=== PATIENT | female | born 1960 | race Caucasian/White ===

== ENCOUNTER → 2018-05-07 11:14 | Outpatient (CLI) | payer BC, SELFPAY ==
[2018-05-07 12:53] LABS: Thyroid Stim Hormone (TSH) 1.22 uIU/mL (0.358-3.74)
[2018-05-13 13:12] LABS: HPV Reflexed? NOT INDICATED
== END ==
PROVIDERS: Visit Provider Obstetrics & Gynecology
DX: Z12.4 Encounter for screening for malignant neoplasm of cervix (principal); E03.9 Hypothyroidism, unspecified
CPT/HCPCS: 36415; 84443; 87624; 88175; G0145

== ENCOUNTER → 2018-08-20 09:00 | Outpatient (CLI) | payer BC, SELFPAY ==
--- NOTE | 2018-08-20 09:04 | BI_ITS ---
MAMMOGRAPHY - BILATERAL SCREENING REASON FOR EXAM: Female, 58 years old. Routine annual screening examination. PERTINENT HISTORY: Non-contributory. TECHNIQUE: Digital bilateral breast eber (3D mammographic acquisition) in the CC and MLO projections. 2-D mediolateral oblique (MLO) and craniocaudad (CC) views of both breasts were obtained. CAD: Full Field Digital Mammography with Computer Added Detection was performed. COMPARISON: Comparison is made with prior study dated September 05, 2016 and February 22, 2015. FINDINGS: Breast Composition: There are scattered areas of fibroglandular density. There are no dominant masses or suspicious calcifications. No other significant abnormalities are identified. There has been no significant change since the prior study. BI/SCREENING MAMM (CAD), BILAT IMPRESSION: Stable bilateral screening mammogram. Yearly follow-up mammogram recommended. (A) ASSESSMENT CATEGORY: BIRADS Category 1: Negative. A letter regarding these results will be sent to the patient by the facility within 30 days. Approximately 10% of breast cancers are not detected by mammography. A normal mammogram should not delay biopsy of a clinically suspicious abnormality. [id number] Electronically Signed: Jh Ghosh MD at 10:27 EST , Service support ,
== END ==
PROVIDERS: Referring Provider Obstetrics & Gynecology; Visit Provider Obstetrics & Gynecology
DX: Z12.31 Encounter for screening mammogram for malignant neoplasm of breast (principal)
CPT/HCPCS: 77063; 77067

== ENCOUNTER → 2019-09-09 11:16 | Outpatient (CLI) | payer BC, SELFPAY ==
[2019-09-09 13:45] LABS: Mean Corp Hgb Conc 32.6 g/dL (32-36); Mean Corpuscular Hgb 27.4 pg (27.0-32.0); Mean Corpuscular Volume 84.1 fL (81-99); Mean Platelet Vol. 10.4 fl (6.2-12.0); Platelet Count 315 K/mm3 (150-450); RBC Distribution Width CV 12.6 % (11.6-14.6); RBC Distribution Width SD 38.5 fl (35.1-43.9); Red Blood Count 5.11 M/mm3 (4.2-5.4); White Blood Count 7.2 K/mm3 (4.4-11.0)
[2019-09-09 14:02] LABS: ALB/GLOB Ratio 1.1 RATIO (0.9-2.4); AST(SGOT) 15 U/L (15-37); Alanine Aminotransfer ALT/SGPT 31 U/L (13-56); Alkaline Phosphatase 91 U/L (45-117); Anion Gap 5 (5-15); BUN 10 mg/dL (7-18); BUN/Creat Ratio 14.4 RATIO (10-20); Calcium,Total 8.6 mg/dL (8.5-10.1); Chloride 109 mmol/L (98-107); Cholesterol 181 mg/dL (200); EST Glomerular Filtration Rate 92 mL/min (>60); Est Glom Filt Rate - Afr Amer 112 mL/min (>60); Globulin 3.5 g/dL (2.2-4.2); Glucose 89 mg/dL (74-106); Hemoglobin A1c 5.3 % (4.2-6.3); High Density Lipoprotein 56 mg/dL; Potassium 3.6 mmol/L (3.5-5.1); Protein, Total 7.5 g/dL (6.4-8.2); Sodium Level 141 mmol/L (136-145); Thyroid Stim Hormone (TSH) 1.26 uIU/mL (0.358-3.74); Triglycerides 89 mg/dL; Very Low Density Lipoprotein 18 mg/dL (5-40)
== END ==
PROVIDERS: Visit Provider Obstetrics & Gynecology
DX: E07.9 Disorder of thyroid, unspecified (principal); R53.81 Other malaise; E66.3 Overweight
CPT/HCPCS: 36415; 80053; 80061; 83036; 84443; 85027

== ENCOUNTER → 2019-09-20 08:33 | Outpatient (CLI) | payer BC, SELFPAY ==
--- NOTE | 2019-09-20 08:36 | BI_ITS ---
MAMMOGRAPHY - BILATERAL SCREENING REASON FOR EXAM: Female, 59 years old. Routine annual screening examination. PERTINENT HISTORY: Non-contributory. TECHNIQUE: Digital bilateral breast brandi (3D mammographic acquisition) in the CC and MLO projections. 2-D mediolateral oblique (MLO) and craniocaudad (CC) views of both breasts were obtained. CAD: Full Field Digital Mammography with Computer Added Detection was performed. COMPARISON: Comparison is made with prior examination dated August 20, 2018 and September 05, 2016. FINDINGS: Breast Composition: There are scattered areas of fibroglandular density. There are no dominant masses or suspicious calcifications. Stable benign-appearing bilateral axillary lymph nodes. No other significant abnormalities are identified. There has been no significant change since the prior study. BI/SCREEN MAMM (CAD) W/BRANDI BILAT IMPRESSION: Stable bilateral screening mammogram. Yearly follow-up mammogram recommended. (A) ASSESSMENT CATEGORY: BIRADS Category 2: Benign. A letter regarding these results will be sent to the patient by the facility within 30 days. Approximately 10% of breast cancers are not detected by mammography. A normal mammogram should not delay biopsy of a clinically suspicious abnormality. [id number] Electronically Signed: Jh Ghosh, at 10:33 EDT , Service support ,
== END ==
PROVIDERS: Referring Provider Obstetrics & Gynecology; Visit Provider Obstetrics & Gynecology
DX: Z12.31 Encounter for screening mammogram for malignant neoplasm of breast (principal)
CPT/HCPCS: 77063; 77067

== ENCOUNTER → 2020-01-04 | Outpatient (CLI) | payer BC, SELFPAY ==
[2020-01-03 17:20] VITALS: BMI 36.3
== END | disposition home or self-care (01) ==
PROVIDERS: Referring Provider Physician Assistant; Visit Provider Physician Assistant
DX: T14.8XXA Other injury of unspecified body region, initial encounter (principal); X58.XXXA Exposure to other specified factors, initial encounter; Y93.9 Activity, unspecified; Y92.9 Unspecified place or not applicable; Y99.9 Unspecified external cause status
CPT/HCPCS: 87070; 87077; 87186; 87205

== ENCOUNTER → 2020-09-29 10:16 | Outpatient (CLI) | payer BC, SELFPAY ==
[2020-01-03 17:20] VITALS: BMI 36.3
[2020-09-29 14:07] LABS: Hemoglobin 14.9 g/dL (12.0-15.0); Mean Corp Hgb Conc 32.4 g/dL (32-36); Mean Corpuscular Hgb 27.7 pg (27.0-32.0); Mean Corpuscular Volume 85.7 fL (81-99); Mean Platelet Vol. 10.3 fl (6.2-12.0); Platelet Count 372 K/mm3 (150-450); RBC Distribution Width CV 12.4 % (11.6-14.6); RBC Distribution Width SD 38.8 fl (35.1-43.9); Red Blood Count 5.37 M/mm3 (4.2-5.4); White Blood Count 6.2 K/mm3 (4.4-11.0)
[2020-09-29 14:24] LABS: Hemoglobin A1c 5.1 % (3.8-5.6)
[2020-09-29 14:27] LABS: Cholesterol 186 mg/dL (200); High Density Lipoprotein 59 mg/dL; Thyroid Stim Hormone (TSH) 0.86 uIU/mL (0.358-3.74); Triglycerides 74 mg/dL; Very Low Density Lipoprotein 15 mg/dL (5-40)
[2020-10-03 14:15] LABS: HPV Reflexed? NOT INDICATED
== END ==
PROVIDERS: Visit Provider Obstetrics & Gynecology
DX: Z12.4 Encounter for screening for malignant neoplasm of cervix (principal); E03.9 Hypothyroidism, unspecified; E66.3 Overweight; N95.1 Menopausal and female climacteric states
CPT/HCPCS: 36415; 80061; 83036; 84443; 85027; 88175; G0145

== ENCOUNTER → 2020-10-06 08:49 | Outpatient (CLI) | payer BC, SELFPAY ==
[2020-01-03 17:20] VITALS: BMI 36.3
--- NOTE | 2020-10-06 09:09 | BI_ITS ---
MAMMOGRAPHY - BILATERAL SCREENING REASON FOR EXAM: Female, 60 years old. Routine annual screening examination. PERTINENT HISTORY: Non-contributory. TECHNIQUE: Digital bilateral breast brandi (3D mammographic acquisition) in the CC and MLO projections. 2-D mediolateral oblique (MLO) and craniocaudad (CC) views of both breasts were obtained. CAD: Full Field Digital Mammography with Computer Added Detection was performed. COMPARISON: Comparison is made with prior study of 09/20/2019 and 08/20/2018. FINDINGS: Breast Composition: There are scattered areas of fibroglandular density. There are no dominant masses or suspicious calcifications. Stable benign-appearing lateral axillary lymph nodes. No other significant abnormalities are identified. There has been no significant change since the prior study. BI/SCRN MAMM (CAD)W/BRANDI BILAT IMPRESSION: Stable bilateral screening mammogram. Yearly follow-up mammogram recommended. (A) ASSESSMENT CATEGORY: BIRADS Category 2: Benign. A letter regarding these results will be sent to the patient by the facility within 30 days. Approximately 10% of breast cancers are not detected by mammography. A normal mammogram should not delay biopsy of a clinically suspicious abnormality. [id number] Electronically Signed: Jh Ghosh MD at 9:48 EDT , Service support ,
== END ==
PROVIDERS: Referring Provider Obstetrics & Gynecology; Visit Provider Obstetrics & Gynecology
DX: Z12.31 Encounter for screening mammogram for malignant neoplasm of breast (principal)
CPT/HCPCS: 77063; 77067

== ENCOUNTER 2021-10-11 11:22 | Outpatient (CLI) | payer BC, SELFPAY ==
[2021-10-11 12:35] LABS: Hematocrit 45.4 % (37-47); Hemoglobin 15.1 g/dL (12.0-15.0); Mean Corp Hgb Conc 33.3 g/dL (32-36); Mean Corpuscular Volume 84.1 fL (81-99); Mean Platelet Vol. 9.4 fl (6.2-12.0); Platelet Count 342 K/mm3 (150-450); RBC Distribution Width CV 12.4 % (11.6-14.6); RBC Distribution Width SD 37.7 fl (35.1-43.9); White Blood Count 7.3 K/mm3 (4.4-11.0)
[2021-10-11 13:03] LABS: Hemoglobin A1c 5.3 % (3.8-5.6)
[2021-10-11 13:07] LABS: ALB/GLOB Ratio 1.1 RATIO (0.9-2.4); AST(SGOT) 23 U/L (15-37); Alanine Aminotransfer ALT/SGPT 40 U/L (13-56); Albumin, Serum 4.1 g/dL (3.2-5.0); Alkaline Phosphatase 102 U/L (45-117); Anion Gap 5 (5-15); BUN 8 mg/dL (7-18); BUN/Creat Ratio 11.9 RATIO (10-20); Calcium,Total 8.7 mg/dL (8.5-10.1); Chloride 106 mmol/L (98-107); Cholesterol 216 mg/dL (200); Creatinine, Serum 0.67 mg/dL (0.55-1.02); EST Glomerular Filtration Rate 95 mL/min (>60); Est Glom Filt Rate - Afr Amer 115 mL/min (>60); Globulin 3.6 g/dL (2.2-4.2); Glucose 95 mg/dL (74-106); High Density Lipoprotein 62 mg/dL; Potassium 3.5 mmol/L (3.5-5.1); Protein, Total 7.7 g/dL (6.4-8.2); Sodium Level 138 mmol/L (136-145); Thyroid Stim Hormone (TSH) 1.34 uIU/mL (0.358-3.74); Triglycerides 112 mg/dL; Very Low Density Lipoprotein 22 mg/dL (5-40)
== END 2021-10-11 23:59 | disposition home or self-care (01) ==
PROVIDERS: Visit Provider Obstetrics & Gynecology
DX: Z13.220 Encounter for screening for lipoid disorders (principal); E03.9 Hypothyroidism, unspecified
CPT/HCPCS: 36415; 80053; 80061; 83036; 84443; 85027

== ENCOUNTER 2021-10-30 11:01 | Outpatient (CLI) | payer BC, SELFPAY ==
--- NOTE | 2021-10-30 11:03 | BI_ITS ---
MAMMOGRAPHY - BILATERAL SCREENING 3-D TOMOSYNTHESIS REASON FOR EXAM: Female, 61 years old. SCREENING PERTINENT HISTORY: No significant family history. TECHNIQUE: 2-D mammograms and 3-D Tomosynthesis of the breast (s) were performed. CAD was performed. COMPARISON: 10/06/2020 FINDINGS: The breast composition is composed of scattered fibroglandular density. Scattered benign calcifications are seen. No dense spiculated masses or suspicious microcalcifications are identified. No architectural distortion is identified. There is no skin thickening or retraction. There has been no significant change since the prior study. BI/SCRN MAMM (CAD)W/BRANDI BILAT IMPRESSION: No mammographic signs of malignancy. Routine yearly mammograms recommended. ASSESSMENT CATEGORY: BIRADS Category 1: Negative. A letter regarding these results will be sent to the patient by the facility within 30 days. FOLLOW UP RECOMMENDATION: Yearly follow up mammogram recommended. (A) Approximately 10% of breast cancers are not detected by mammography. A normal mammogram should not delay biopsy of a clinically suspicious abnormality. Electronically Signed: Steven Lyons MD at 12:01 EDT ,
== END 2021-10-30 23:59 | disposition home or self-care (01) ==
LOC: OPBI 11:01
PROVIDERS: Referring Provider Obstetrics & Gynecology; Visit Provider Obstetrics & Gynecology
DX: Z12.31 Encounter for screening mammogram for malignant neoplasm of breast (principal)
CPT/HCPCS: 77063; 77067

== ENCOUNTER → 2024-07-21 | Outpatient (CLI) | payer BC, SELFPAY ==
--- NOTE | 2024-07-21 16:57 | CT_ITS ---
EXAM: CT RIGHT LOWER EXTREMITY WITHOUT INTRAVENOUS CONTRAST CLINICAL INDICATION: PRE OP WASC/OSTEO TECHNIQUE: Helically acquired images were obtained of the right lower extremity without intravenous contrast. 2-D reformats were performed by the technologist. CTDIvol = ( 18.74 ) mGy, DLP = ( 1322.73 ) mGycm This CT exam was performed using one or more of the following dose reduction techniques: automated exposure control, adjustment of the mA and/or kV according to patient size, and/or use of iterative reconstruction technique. COMPARISON: No relevant prior studies available. FINDINGS: BONES/JOINTS: Calcaneal enthesopathy. Bone along the medial malleolus. Knee shows tricompartmental osteoarthrosis, moderate to severe. Mild degenerative joint space narrowing at the right hip joint. Mild enthesopathy involving the right greater trochanter. No acute or healing fracture or malalignment. SOFT TISSUES: Unremarkable. No soft tissue swelling or gas. No radiopaque foreign body. No soft tissue masses or fluid collections. OTHER FINDINGS: Distal colonic diverticulosis but no acute diverticulitis. No free fluid in the pelvis. CT/Extremity Lower without Contra IMPRESSION: 1. [id number] tricompartmental osteoarthrosis of the knee. 2. Study was performed for preoperative planning purposes. Electronically Signed: Graham Anderson MD at 19:05 EST Reading Location ID and State: [address] [place] [address] Tel , Service support ,
== END | disposition home or self-care (01) ==
LOC: CT 16:55
PROVIDERS: Referring Provider Orthopaedic Surgery; Visit Provider Orthopaedic Surgery
DX: M17.31 Unilateral post-traumatic osteoarthritis, right knee (principal); M25.561 Pain in right knee
CPT/HCPCS: 73700

== ENCOUNTER → 2024-08-24 | Outpatient (CLI) | payer BC, SELFPAY ==
--- NOTE | 2024-08-24 08:38 | EKG12_ITS ---
Test Reason : PRE OP Blood Pressure : */* mmHG Vent. Rate : 71 BPM Atrial Rate : 71 BPM P-R Int : 168 ms QRS Dur : 76 ms QT Int : 404 ms P-R-T Axes : 67 91 86 degrees QTcB Int : 439 ms Normal sinus rhythm Normal ECG Confirmed by Rashid Walters ([id number]), department editor TY WILLIAMSON ([id number]) on 08/25/2024 6:54:44 AM Referred By: Mele Allen Confirmed By: Rashid Walters
--- NOTE | 2024-08-24 09:05 | RAD_ITS ---
EXAM: XR Chest, 2 Views CLINICAL INDICATION: TECHNIQUE: Frontal and lateral views of the chest. COMPARISON: No relevant prior studies available. FINDINGS: LUNGS AND PLEURAL SPACES: Unremarkable. No consolidation. No pneumothorax. HEART: Unremarkable. No cardiomegaly. MEDIASTINUM: Unremarkable. Normal mediastinal contour. BONES/JOINTS: Unremarkable. No acute fracture. RAD/Chest PA and Lateral IMPRESSION: No acute cardiopulmonary process. Reading [facility]
[2024-08-24 10:44] LABS: Absolute Lymphocyte Count 2.38 X10^3/uL (0.83-4.51); Absolute Neutrophil Count 4.6 X10^3/uL (2.0-7.7); Basophil# 0.05 X10^3/uL; Basophil% 0.6 % (0-1); Eosinophil# 0.25 X10^3/uL; Eosinophils% 3.2 % (0-5); Hematocrit 43.6 % (37-47); Lymphocyte # 2.38 X10^3/ul (0.83-4.51); Lymphocyte % 30.4 % (19-41); Mean Corp Hgb Conc 32.1 g/dL (32-36); Mean Corpuscular Hgb 27.3 pg (27.0-32.0); Mean Platelet Vol. 10.2 fl (6.2-12.0); Monocyte# 0.53 X10^3/uL; Monocyte% 6.8 % (0-10); NRBC Flagged by Analyzer 0 % (0-5); Neutrophil % 58.6 % (47-70); Platelet Count 361 K/mm3 (150-450); RBC Distribution Width CV 12.6 % (11.6-14.6); RBC Distribution Width SD 38.8 fl (35.1-43.9); Red Blood Count 5.13 M/mm3 (4.2-5.4); White Blood Count 7.8 K/mm3 (4.4-11.0)
[2024-08-24 11:18] LABS: Albumin, Serum 3.8 g/dL (3.2-5.0); Anion Gap 8 (5-15); BUN 15 mg/dL (7-18); BUN/Creat Ratio 24.4 RATIO (10-20); Calcium,Total 8.5 mg/dL (8.5-10.1); Chloride 105 mmol/L (98-107); Creatinine, Serum 0.61 mg/dL (0.55-1.02); EST Glomerular Filtration Rate 105 mL/min (>60); Est Glom Filt Rate - Afr Amer 127 mL/min (>60); Glucose 90 mg/dL (74-106); Potassium 3.9 mmol/L (3.5-5.1); Sodium Level 140 mmol/L (136-145)
== END | disposition home or self-care (01) ==
PROVIDERS: Referring Provider Orthopaedic Surgery; Visit Provider Orthopaedic Surgery
DX: Z01.811 Encounter for preprocedural respiratory examination (principal); Z01.818 Encounter for other preprocedural examination
CPT/HCPCS: 36415; 71046; 80048; 82040; 85025; 93005

== ENCOUNTER → 2024-09-17 | Outpatient (CLI) | payer BC, SELFPAY ==
--- NOTE | 2024-09-17 07:30 | KNEE_PTH ---
PATIENT: ISIS BAJWA LOC: [facility]#:[id number] AGE/SX: 64/F ROOM: RE09/17/[address]: Dr. Mele Allen MD : 1960 BED: DIS: 09/17/2024 SPEC #: [id number] RECD: 09/17/24 15:02 STATUS: RAKAN REMaged #: [id number] KAYE: 09/17/24 07:[address]: Mele Allen DEPT: SURGICAL PATHOLOGY RECD BY: Citlaly Stratton ENTERED: 09/20/24 08:27 SP TYPE: TOTAL KNEE OTHR DR: No Primary Care Phys Tissues: Knee, NOS Procedures: Decalcification bone/plaque Surgery Specimen Level IV HEADER OPERATION: Right total knee arthroplasty PRE-OP DIAGNOSIS: Right knee posttraumatic arthritis grade 4 TISSUE SUBMITTED: Right knee bone and tissue MICROSCOPIC DIAGNOSIS Right knee, bone and soft tissue, total knee arthroplasty: * Articular bone with reactive/degenerative changes and fatty marrow spaces. * Fibroadipose tissue with hyperplastic synovium demonstrating mild chronic inflammation. MICROSCOPIC DESCRIPTION Slides are reviewed. GROSS DESCRIPTION Received is one container designated bone and soft tissue right knee. The specimen consists of multiple fragments of ybarra-yellow bone measuring in aggregate 9 x 7.5 x 2.5 cm. Also in the specimen container are multiple fragments of yellow-white soft tissue measuring in aggregate 7 x 5 x 2cm. A number of bony fragments contain articular surfaces consistent with tibial plateau and femoral condyle and display prominent osteophyte formation, eburnation, and erosion. Blade Balancer sections are submitted in two cassettes as follows: 1 - bone after decalcification, 2 - soft tissue. RS2 09/20/2024 CPT: 40087, [id number]
== END | disposition home or self-care (01) ==
LOC: LABSPEC 15:36
PROVIDERS: Referring Provider Orthopaedic Surgery; Visit Provider Orthopaedic Surgery
DX: M12.561 Traumatic arthropathy, right knee (principal)
CPT/HCPCS: 88305; 88311

== ENCOUNTER → 2024-10-01 | Outpatient (CLI) | payer BC, SELFPAY ==
--- NOTE | 2024-10-01 10:59 | VDLE_ITS ---
Reason For Study Reason For Study: Swelling RIGHT LEFT GSV is normal. CFV is compressible, spontaneous, phasic, competent, CFV is compressible, spontaneous, phasic, competent and demonstrates normal augmentation. and demonstrates normal augmentation. FV is compressible, spontaneous, phasic, competent and demonstrates normal augmentation. POP V is compressible, spontaneous, phasic, competent and demonstrates normal augmentation. T/P Trunk is compressible. PTV is compressible. RT PerV is compressible. Procedure This is a venous duplex using B-mode, color flow and spectral Doppler. Exam performed in department. A preliminary report was called and/or faxed to DIVYA Moser. VL/Venous Duplex US, Unilateral Interpretation Summary Deep veins of the right lower extremity are patent and compressible segmentally . There is no evidence of right lower extremity deep vein thrombosis. Valvular competence appears intact within the p roximal deep venous system on the right . The right great saphenous vein appears patent and compressible segmentally. The left common femoral vein is patent and compressible . Ordering Physician: Briana White Performed By: Yudy Hyatt
== END | disposition home or self-care (01) ==
LOC: CVS 10:56
PROVIDERS: Referring Provider Physician Assistant; Visit Provider Physician Assistant
DX: R22.41 Localized swelling, mass and lump, right lower limb (principal)
CPT/HCPCS: 93971

== ENCOUNTER 2024-10-25 15:13 | Emergency (ER) | payer BC, SELFPAY ==
[2024-10-25 15:16] VITALS: BP 153/79; PULSE 78; RESP 18; TEMP 36.6; O2SAT 98
[2024-10-25 15:17] VITALS: BMI 29.5
--- NOTE | 2024-10-25 15:20 | EX.ED.DYSGE1 ---
HPI <DIVYA Vasquez - Last Filed: 10/25/24 15:40> History of Present Illness Chief Complaint: General Illness Narrative Narrative: 64-year-old female had an outpatient ultrasound of her right leg that was positive for DVT and was sent to the ED. She had a right knee replacement about 5 weeks ago (September 17) with Dr. Mele Allen. Over the last 2 weeks or so she developed increased pain and swelling in the knee and upper calf area. She has been doing physical therapy and recovering overall. She is still taking oxycodone as needed. No fever or chills. No chest pain or shortness of breath. No history of DVT/PE. PFSH <DIVYA Vasquez - Last Filed: 10/25/24 15:40> PFSH Medical History URI (upper respiratory infection) Thoracic myofascial strain Knee pain Home Medications ?Medication ?Instructions ?Recorded ?Last Taken ?Type levothyroxine 75 mcg tablet 75 mcg PO DAILY 01/03/20 Unknown History (Synthroid) naproxen sodium 220 mg capsule 220 mg PO BID PRN 01/03/20 Unknown History (Aleve) cyclobenzaprine 10 mg tablet 10 mg PO TID PRN muscle spasm #20 04/15/23 Unknown Rx tabs naproxen 500 mg tablet 500 mg PO BID #20 tabs 04/15/23 Unknown Rx apixaban 5 mg (74 tabs) tablets in See Rx Instructions PO .COMPLEX 10/25/24 Unknown Rx a dose pack (Eliquis DVT-PE Treat #74 tabs 30D Start) Allergy/AdvReac Type Severity Reaction Status Date / Time No Known Allergies Allergy Verified 10/25/24 15:17 Family History Mother Diabetes CVD (cardiovascular disease) Surgical History Hx of section History of thyroid surgery History of knee surgery Social History Smoking Status: Never smoker alcohol intake: never ROS <DIVYA Vasquez - Last Filed: 10/25/24 15:40> ROS ED ROS Narrative Constitutional: Negative for fever, chills, malaise. CVS: Negative for chest pain. Respiratory: Negative for shortness of breath. Neuro: Negative for motor/sensory dysfunction. EXAM <DIVYA Vsaquez - Last Filed: 10/25/24 15:40> Physical Exam Narrative Exam Narrative: CONST: Patient sitting in no acute distress. EYES: Normal inspection. NECK: Normal inspection. RESP: No respiratory distress, CTAB. CVS: Regular rate and rhythm, no murmur, no gallop. SKIN: Color normal, no rash, warm, dry, intact. EXTREMITIES: Midline right knee incision is well-healed. Mild swelling of right knee as compared to left but no warmth or redness. Range of motion intact. Tender over the left mid and upper calf without palpable cords. No lower extremity edema. 2+ DP pulses. NEURO: Alert and answering questions appropriately. PSYCH: Normal affect. Const Vital Signs: 10/25/24 15:16 10/25/24 15:41 Temperature 97.8 F 97.8 F Temperature Source Oral Pulse Rate 78 78 Respiratory Rate 18 18 Blood Pressure 153/79 H 153/79 H Blood Pressure Mean 103 103 Pulse Ox 98 98 Oxygen Delivery Method Room Air <Dr. Sim Ledbetter MD - Last Filed: 10/25/24 15:50> Physical Exam Const Vital Signs: 10/25/24 15:16 10/25/24 15:41 Temperature 97.8 F 97.8 F Temperature Source Oral Pulse Rate 78 78 Respiratory Rate 18 18 Blood Pressure 153/79 H 153/79 H Blood Pressure Mean 103 103 Pulse Ox 98 98 Oxygen Delivery Method Room Air MDM <DIVYA Vasquez - Last Filed: 10/25/24 15:40> MDM MDM Narrative Medical decision making narrative: 64-year-old female is 5 weeks postop from a right knee replacement and developed some knee and upper calf pain and her outpatient duplex ultrasound from today shows a right soleus DVT. No history of DVT/PE. She appears well nontoxic and vital signs are stable. She has no chest pain or shortness of breath so I am not concerned for PE. She had recent blood work 2 months ago preop which shows normal CBC and BMP so this does not need repeated prior to initiating anticoagulation. I thoroughly discussed the risks and benefits of Eliquis. First dose was given here and prescription sent to her pharmacy. I recommended close follow-up with her PCP and she was discharged in stable condition. <Dr. Sim Ledbetter MD - Last Filed: 10/25/24 15:50> [facility] MDM Narrative Medical decision making narrative: 64-year-old female is 5 weeks postop from a right knee replacement and developed some knee and upper calf pain and her outpatient duplex ultrasound from today shows a right soleus DVT. No history of DVT/PE. She appears well nontoxic and vital signs are stable. She has no chest pain or shortness of breath so I am not concerned for PE. She had recent blood work 2 months ago preop which shows normal CBC and BMP so this does not need repeated prior to initiating anticoagulation. I thoroughly discussed the risks and benefits of Eliquis. First dose was given here and prescription sent to her pharmacy. I recommended close follow-up with her PCP and she was discharged in stable condition. I have personally performed a face to face assessment of the patient and have reviewed the LIZZIE Note. I performed a substantive portion of the visit including all aspects of the following. My ugarte findings include: History is [62-year-old female about 5+ weeks ago had right knee replaced surgery by Dr. Mele Allen. Developed calf pain recently. Had a noninvasive study done today in the vascular lab which showed a right calf DVT. Denies any chest pain or shortness of breath. No other complaint well-appearing 62-year-old female. Vital signs stable afebrile. Pulse ox 90% on room air Narvox. H EENT exam s.] Exam is [pupils round react light. Moist mucous members. Lungs clear equal symmetric bilateral. Heart regular rhythm rate about 75 no murmur. Chest wall ribs nontender. Abdomen soft nontender. Moving all 4 extremities. Neurovascular intact. Right knee well-healed anterior surgical incision. Dry and clean. No redness or warmth. She is able to flex extend her right knee and hip. Normal dorsi plantarflexion of her right foot. Normal DP pulse. Normal sensation. She has tenderness on the right proximal calf medially.. No cord. Trace edema. Consistent with a DVT. No redness.] Medical Decision Making [noninvasive study right calf DVT. Patient be started on Eliquis. Outpatient follow-up with her primary care physician.] Other additions or changes: [None] Discharge Plan Triage Chief Complaint: General Illness ED Midlevel Provider: Kelly More ED Provider: Sim Ledbetter Dx/Rx/DC Orders Clinical Impression: Acute deep vein thrombosis (DVT) of right lower extremity, History of total right knee replacement Instructions: DVT Dc Prescriptions: New Eliquis DVT-PE Treat 30D Start 5 mg (74 tabs) tablets,dose pack See Rx Instructions .ROUTE .COMPLEX Qty: 74 0RF Rx Instructions: orally per package directions No Action naproxen sodium [Aleve] 220 mg capsule 220 mg PO BID PRN levothyroxine [Synthroid] 75 mcg tablet 75 mcg PO DAILY naproxen 500 mg tablet 500 mg PO BID Qty: 20 0RF cyclobenzaprine 10 mg tablet 10 mg PO TID PRN (Reason: muscle spasm) Qty: 20 0RF Rx Instructions: do not drive/ operate heavy equipment after taking this medication Primary Care Provider: Gaby Uriarte Referrals: Gaby Uriarte MD [Primary Care Provider] - Activity Restrictions/Additional Instructions: There is a blood clot in your right soleus vein. I prescribed a blood thinner called Eliquis that you take twice daily. If you have any bleeding issues like blood in your vomit, urine, or stool please be seen immediately. If you fall or have a head injury be seen immediately in the ER. Follow-up with your primary care doctor in 1 to 2 weeks. Print Language: Vietnamese Disposition Disposition: Home, Self Care
[2024-10-25] MEDS: APIXABAN 5 MG TABLET 10 MG PO (15:37)
[2024-10-25 15:41] VITALS: BP 153/79; PULSE 78; RESP 18; TEMP 36.6; O2SAT 98
== END 2024-10-25 15:55 | disposition home or self-care (01) ==
LOC: ED 15:49
PROVIDERS: Emergency Provider Emergency Medicine; PCP Internal Medicine; Visit Provider Emergency Medicine
DX: I82.461 Acute embolism and thrombosis of right calf muscular vein (principal); Z96.651 Presence of right artificial knee joint
CPT/HCPCS: 99282

== ENCOUNTER → 2024-10-25 | Outpatient (CLI) | payer BC, SELFPAY ==
--- NOTE | 2024-10-25 14:14 | VDLE_ITS ---
Reason For Study Reason For Study: Pain RLE RIGHT LEFT GSV is normal. CFV is compressible, spontaneous, phasic, competent, CFV is compressible, spontaneous, phasic, competent and demonstrates normal augmentation. and demonstrates normal augmentation. FV is compressible, spontaneous, phasic, competent and demonstrates normal augmentation. POP V is compressible, spontaneous, phasic, competent and demonstrates normal augmentation. T/P Trunk is compressible. PTV is compressible. RT PerV is compressible. Rt SoleusV is DILATED and NON COMPRESSIBLE consistent with acute DVT. Procedure This is a venous duplex using B-mode, color flow and spectral Doppler. Exam performed in department. A preliminary report was called and/or faxed to [facility]. Patient sent to ED per PCP. VL/Venous Duplex US, Unilateral Interpretation Summary Acute deep vein thrombosis noted in the right soleus vein Ordering Physician: Briana White Referring Physician: Gaby Uriarte Performed By: Donna Taylor, BAYLEE, RVT
== END | disposition home or self-care (01) ==
LOC: CVS 13:51
PROVIDERS: Referring Provider Physician Assistant; Visit Provider Physician Assistant
DX: M25.561 Pain in right knee (principal)
CPT/HCPCS: 93971

== ENCOUNTER → 2025-01-06 | Outpatient (CLI) | payer BC, SELFPAY ==
--- NOTE | 2025-01-06 10:30 | RAD_ITS ---
EXAM: XR Lumbosacral Spine, 2 or 3 Views CLINICAL INDICATION: SPONDYLOSIS WITHOUT MYELOPATHY OR RADICULOPATHY, LUMBAR REGION TECHNIQUE: Frontal and lateral views of the lumbar spine and sacrum. COMPARISON: No relevant prior studies available. FINDINGS: VERTEBRAE: Mild multilevel endplate degenerative changes of L1-2 S1. Moderate disc disease of L5-S1. Moderate facet arthropathy of L4-S1. No acute fracture. Normal alignment. SACRUM/COCCYX: Unremarkable as visualized. No acute fracture. DISC SPACES: No acute findings. No significant narrowing. SOFT TISSUES: Unremarkable. RAD/Lumbar Spine 2 or 3 Views IMPRESSION: Degenerative changes as above. Reading Location: [facility]
== END | disposition home or self-care (01) ==
LOC: RAD 10:25
PROVIDERS: PCP Internal Medicine; Referring Provider Anesthesiology Pain Medicine; Visit Provider Anesthesiology Pain Medicine
DX: M47.816 Spondylosis without myelopathy or radiculopathy, lumbar region (principal)
CPT/HCPCS: 72100

== ENCOUNTER 2025-03-07 17:30 | Outpatient (RCR) | payer BC, SELFPAY ==
--- NOTE | 2024-10-05 11:36 | HP.PTEVAL ---
Patient's Visit Information Visit Information Visit Information: ISIS BAJWA is a 64 year old F referred to Physical Therapy by Dr. Mele Allen MD with a diagnosis of R TKA 09/17/24. Date of Evaluation: 10/05/24 Physical Therapist: Vishal De, PT, ATC Visit Plan Frequency: 2-3x /Week Duration: 4-6 Weeks Plan: R knee stretching and strengthening, PROM/mobs, core stab ex's, gait training, stair negotiation, nustep, and HEP Subjective Subjective: DOS: 09/17/24. Pt reports she had a R TKA performed at that time. Pt reports she had R knee pain for several years prior to having this procedure performed. pt notes she is in a lot of pain today. Pt notes she is having sleep difficulty at this time secondary to pain. Pt reports she has been controlling her pain with the use of meds and ice, but she is still really sore. Pt [place] herself, [place] Pt notes her basement is finished and she likes to go down there, but she doesn't have to at this time. Pt reports her R knee will go numb on her at times. 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 Pt reports her job requires her to walk for long distances and negotiate stairs. Pt reports 6/10 pain while sitting here in the clinic, 10/10 pain at worst. Pain R TKA: Pain Intensity (Out of 10): 6 Pain Intensity Range: 10 Objective Objective: Neuro: B LE sensation is WNL to light touch. Observation: Incision is still healing at this time. No signs of infection. Mild tenderness in her R gastroc region. TU seconds ROM: L knee 0-130 ; R knee 0-20-70 degrees MMT: L knee flex= 35, ext= 30 #F; R knee flex= 4, ext= 6 #F Balance/Special Test Scores Lower Extremity Functional Score: 13 Goals Goal 1:: Decrease R knee pain x 50% to aid with sleep Goal Time Frame: 6-8 Weeks Goal 2:: Increase R knee ROM x 40 degrees to aid with restoring a more normalized gait pattern Goal Time Frame: 6-8 Weeks Goal 3:: Increase R knee strength x 20 #F to aid with stair negotiation Goal Time Frame: 6-8 Weeks Goal 4:: Perform the TUG in under 15 seconds Goal Time Frame: 6-8 Weeks Goal 5:: I with HEP Goal Time Frame: 6-8 Weeks Rehabilitation Potential Physical Therapy Diagnosis: Pt has R knee pain, weakness, and limited ROM secondary to R TKA Rehabilitation Potential: Good Anticipated Interventions Patient/Client Instruction: Educate patient on: Condition and Plan of Care For the Purpose of:: To improve self management Therapeutic Exercise to Include: Strength training, Endurance training, Balance training, Flexibilty training, Gait and locomotor training, Passive ROM, Active ROM and Dynamic Lumbar Stabilization For the Purpose of:: To decrease pain, To increase ROM and To improve muscle performance and motor function Cryotherapy (ice pack, ice massage): Yes For the Purpose of:: To decrease pain Text: Thank you for the opportunity to evaluate your patient. For Medicare and Medicare HMO plans, please review the plan of care and approve it. It will need to be FAXED BACK to us at [phone] for Medicare purposes. For Medicare only, by signing this I certify the plan of care. Please let me know if there are questions or concerns regarding this plan of care. Physician Signature: Date:
--- NOTE | 2024-11-11 13:35 | HP.PTREVAL_ITS ---
Re-Evaluation Intro: Dr. Mele Allen MD, It has been my pleasure to treat [facility] over the last 13 visits for R TKA 09/17/24. Please see the progress note below for an update on the physical therapy plan of care! Subjective Subjective: Pt reports she just finished her steroid dose pack a couple days ago. The pain is back now. Objective Objective/Function: R knee ROM: 0-15-85 degrees R knee MMT: flex= 9, ext= 13 #F TU R knee pain is 5/10 Pt lacks signifcant functional strength and ROM at this time. Plan Plan Plan: 11/11/24- Continue to focus on ROM and strengthening at this time R knee stretching and strengthening, PROM/mobs, core stab ex's, gait training, stair negotiation, nustep, and HEP Balance/Gait/Functional tests Balance/Special Test Scores Lower Extremity Functional Score: 13 Goals Goals Goal 1:: Decrease R knee pain x 50% to aid with sleep Goal Time Frame: 6-8 Weeks Goal Progress: Progressing Goal 2:: Increase R knee ROM x 40 degrees to aid with restoring a more normalized gait pattern Goal Time Frame: 6-8 Weeks Goal Progress: Progressing Goal 3:: Increase R knee strength x 20 #F to aid with stair negotiation Goal Time Frame: 6-8 Weeks Goal Progress: Progressing Goal 4:: Perform the TUG in under 15 seconds Goal Time Frame: 6-8 Weeks Goal Progress: Progressing Goal 5:: I with HEP Goal Time Frame: 6-8 Weeks Anticipated Interventions Anticipated Interventions Patient/Client Instruction: Educate patient on: Condition and Plan of Care For the Purpose of:: To improve self management Therapeutic Exercise to Include: Strength training, Endurance training, Balance training, Flexibilty training, Gait and locomotor training, Passive ROM, Active ROM and Dynamic Lumbar Stabilization For the Purpose of:: To decrease pain, To increase ROM and To improve muscle performance and motor function Cryotherapy (ice pack, ice massage): Yes For the Purpose of:: To decrease pain Re-Evaluation Ending Re-evaluation ending: Please do not hesitate to contact me at [phone] by phone or Fax: if you have questions or concerns regarding this new plan of care! Sincerely, Vishal De, PT, ATC
--- NOTE | 2024-12-20 15:05 | HP.PTREVAL ---
Re-Evaluation Intro: Dr. Mele Allen MD, It has been my pleasure to treat [facility] over the last 29 visits for R TKA 09/17/24. Please see the progress note below for an update on the physical therapy plan of care! Subjective Subjective: I dont usually have pain, but I am sore today Objective Objective/Function: R knee ROM: 0-10-97 degrees R knee MMT: flex= 17, ext= 7 #F R knee pain ranges from 2-7/10 Pt still lacks functional strength and ROM at this time Plan Plan Plan: 12/20/24- Continue to focus on ROM and strength of R knee at this time. Balance/Gait/Functional tests Balance/Special Test Scores Lower Extremity Functional Score: 30 Goals Goals Goal 1:: Decrease R knee pain x 50% to aid with sleep Goal Time Frame: 6-8 Weeks Goal Progress: Progressing Goal 2:: Increase R knee ROM x 40 degrees to aid with restoring a more normalized gait pattern Goal Time Frame: 6-8 Weeks Goal Progress: Progressing Goal 3:: Increase R knee strength x 20 #F to aid with stair negotiation Goal Time Frame: 6-8 Weeks Goal Progress: Progressing Goal 4:: Perform the TUG in under 15 seconds Goal Time Frame: 6-8 Weeks Goal Progress: Progressing Goal 5:: I with HEP Goal Time Frame: 6-8 Weeks Anticipated Interventions Anticipated Interventions Patient/Client Instruction: Educate patient on: Condition and Plan of Care For the Purpose of:: To improve self management Therapeutic Exercise to Include: Strength training, Endurance training, Balance training, Flexibilty training, Gait and locomotor training, Passive ROM, Active ROM and Dynamic Lumbar Stabilization For the Purpose of:: To decrease pain, To increase ROM and To improve muscle performance and motor function Cryotherapy (ice pack, ice massage): Yes For the Purpose of:: To decrease pain Re-Evaluation Ending Re-evaluation ending: Please do not hesitate to contact me at [phone] by phone or if you have questions or concerns regarding this new plan of care! Sincerely, Vishal De, PT, ATC
--- NOTE | 2025-04-19 11:35 | HP.PT.NRP ---
Patient Information Patient Information: ISIS BAJWA was seen in my office for initial evaluation on 10/05/24. The following Plan of Care was established for this patient: POC Established Initial Frequency: 2-3x /Week Initial Duration: 4-6 Weeks Anticipated Interventions Patient/Client Instruction: Educate patient on: Condition and Plan of Care For the Purpose of:: To improve self management Therapeutic Exercise to Include: Strength training, Endurance training, Balance training, Flexibilty training, Gait and locomotor training, Passive ROM, Active ROM and Dynamic Lumbar Stabilization For the Purpose of:: To decrease pain, To increase ROM and To improve muscle performance and motor function Cryotherapy (ice pack, ice massage): Yes For the Purpose of:: To decrease pain Last Seen Last Seen: This patient was last seen in our office . Pertinent comments regarding their Physical therapy will appear below: Pt has not returned for greater than 30 days and is discontinued at this time. At this point I will be discontinuing this patient from physical therapy. I would be happy to see this patient again in the future if found appropriate by the physician. Thank you! Vishal De, PT, ATC Balance/Gait/Functional tests Balance/Special Test Scores Lower Extremity Functional Score: 28
== END 2025-03-07 19:00 | disposition home or self-care (01) ==
LOC: PT 17:30
PROVIDERS: Referring Provider Orthopaedic Surgery; Visit Provider Orthopaedic Surgery
DX: M17.31 Unilateral post-traumatic osteoarthritis, right knee (principal); M25.561 Pain in right knee
CPT/HCPCS: 97016; 97110; 97113; 97140; 97161; 97530

== ENCOUNTER → 2025-03-29 | Outpatient (CLI) | payer BC, SELFPAY ==
--- NOTE | 2025-03-29 17:13 | BI_ITS ---
EXAM: SCRN MAMM (CAD)W/BRANDI BILAT DATE: 03/29/2025 CLINICAL HISTORY: F, Age 64 y/o , SCREENING No family history TECHNIQUE: Procedure Code: [id number] Modality: MG Procedure: SCRN MAMM (CAD)W/BRANDI BILAT COMPARISON: Prior exam(s) dated February 06, 2024.. FINDINGS: TISSUE DENSITY: There are scattered areas of fibroglandular density. Bilateral Breast Mammographic Findings: No significant masses, calcifications or other abnormalities are identified. Stable small benign-appearing bilateral axillary lymph nodes. No suspicious masses, areas of developing architectural distortion, or suspicious calcifications. There has been no significant interval change. BI/SCRN MAMM (CAD)W/BRANDI BILAT IMPRESSION: Stable bilateral screening mammogram. OVERALL FINAL ASSESSMENT BI-RADS 2: BENIGN RECOMMENDATION: Routine annual follow-up in 1 Year A letter with findings and recommendations will be mailed to the patient. Reading Location: [facility]
--- OUTSIDE RECORDS SUMMARY | 2025-03-29 23:15 | XMS RPT_ITS | CCD ---
Author Organization [facility] Care Team Providers Care Die Cast Engineer Name Role Phone Rebeca Silva Primary Care Provider [phone] Sarah ALCARAZ, Rebeca Primary Care Provider [phone] Annetta DURBIN - ANDREA, Kelli Unavailable Dr. Mele Aleln MD Attending Provider Dr. Mele Allen MD Referring Provider REBECA SILVA Primary Care Provider Tian Betancourt Attending Provider Dr. Rashid Walters MD Attending Provider Care Physician, No Primary Primary Care Provider Unavailable Briana Lloyd Attending Provider Briana Lloyd Referring Provider Abebe ALCARAZ, Dr. Burton Elena Attending Provider Dr. Burton Lomas MD Referring Provider Sarah ALCARAZ, Dr. Rebeca Caballero Primary Care Provider Dr. Sim Ledbetter MD Emergency Provider Sarah ALCARAZ, Dr. Rebeca Caballero Primary Care Provider Dr. Misael Murrieta MD Attending Provider Dr. Mele Allen MD Attending Provider Dr. Mele Allen MD Referring Provider REBECA SILVA Primary Care Provider Briana White Referring Provider Unavailable Dr. Sim Ledbetter MD Attending Provider Care Physician, No Primary Primary Care Provider Unavailable Adin ALCARAZ, Dr. Figueroa Attending Provider [phone] Adin ALCARAZ, Dr. Figueroa Referring Provider [phone] Alejandro ALCARAZ, Dr. Shabazz Attending Provider [phone] Alejandro ALCARAZ, Dr. Shabazz Referring Provider [phone] KELLI LITTLEJOHN Attending Unavailable SARAH, REBECA Primary Care Unavailable KELLI LITTLEJOHN Attending Unavailable SARAH, REBECA Primary Care Unavailable KELLI LITTLEJOHN Attending Unavailable SARAH, REBECA Primary Care Unavailable ANNETTAKELLI MCKENNA Attending Unavailable SARAH, REBECA Primary Care Unavailable Sarah, Rebeca L Primary Care Unavailable Sim Ledbetter Attending Unavailable Care Physician, No Primary Primary Care Unava ilable Mele Allen Attending Unavailable Mele Allen Referring Unavailable Care Physician, No Primary Primary Care Unava ilable Mele Allen Attending Unavailable Mele Allen Referring Unavailable Pranay VSC, Tanya Attending Unavailabl e Pranay VSC, Tanya Referring Unavailabl e Pranay VSC, Tanya Attending Unavailabl e Sarah, Rebeca L Primary Care Unavailable Mele Allen Referring Unavailable Mele Allen Attending Unavailable YEPEZ, JUAN Primary Care Unavailable Misael Murrieta Attending Unavailable Sarah, Rebeca L Primary Care Unavailable YEPEZJUAN Leo Referring Unavailable Mele Allen Referring Unavailable Rashid Walters Attending Unavailable Tian Betancourt Attending Unavailable Mele Allen Referring Unavailable Mele Allen Attending Unavailable MARLENI, JUAN Primary Care Unavailable Magdiel Oakley Attending Unavailable Sarah, Rebeca L Primary Care Unavailable Magdiel Oakley Referring Unavailable Care Physician, No Primary Primary Care Unava ilable Christopher, Briana Referring Unavailable Christopher Briana Attending Unavailable Care Physician, No Primary Primary Care Unava ilable Christopher, Briana Referring Unavailable Christopher, Briana Attending Unavailable Allergies Allergy Classification Reported Allergen(s) Allergy Type Date of Onset Reaction(s) Facility (20 sources) Cefadroxil Drug Allergy 09-12-2022 [facility] Medications Current Medications Medication Drug Class(es) Dates Sig (Normalized) Sig (Original) acetaminophen 325 mg / oxyCODONE hydrochloride 5 mg oral tablet (4 sources) Opioid Agonist Start: 08-26-2022 End: 08-29-2022 take 1 tablet by mouth every six hours as needed for pain oxyCODONE-acetami nophen (Percocet) 5-325 MG tablet Indications: Mass of soft tissue of abdomen Take 1 tablet by mouth every 6 hours as needed for severe pain (7-10) for up to 3 days. 12 tablet 0 08/26/2022 08/29/2022 Active Start: 12-27-2019 End: 12-30-2019 take 1 tablet by mouth every six hours as needed for pain oxyCODONE-acetaminophen (PERCOCET) 5-325 MG per tablet Indications: Rib contusion, left, initial encounter Take 1 tablet by mouth every 6 hours as needed for Pain for up to [address], take other narcotics or muscle relaxer's, make important decisions or drink alcohol with this medication. Only take at night and off from work when not going to work 12 tablet 0 12/27/2019 12/30/2019 Active Start: 12-27-2019 End: 12-27-2019 oxyCODONE-acetaminophen (PER COCET) 5-325 MG per tablet 1 tablet apixaban 5 mg oral tablet (10 sources) Factor Xa Inhibitor Start: 10-25-2024 End: 02-15-2025 take 1 tablet by mouth twice daily Eliquis 5 MG tablet Indications: Acute deep vein thrombosis (DVT) of right lower extremity, unspecified vein (HCC) TAKE 1 TABLET BY MOUTH TWICE A DAY 60 tablet 1 02/15/2025 Active Start: 10-25-2024 take 1 tablet by mouth once Ap ixaban (Eliquis Dvt-Pe Treat 30d Start) 5 mg (74 tabs) tablets,dose pack Active 0 PO .COMPLEX 74 0 October 25, 2024 12:00am orally per package directions cefadroxil 500 mg oral capsule (2 sources) Cephalosporin Antibacterial Start: 08-26-2022 End: 08-30-2022 take 1 capsule by mouth twice daily cefadroxil (Duricef) 500 MG capsule Take 1 capsule (500 mg) by mouth 2 times daily for 4 days. 8 capsule 0 08/26/2022 08/30/2022 Active cholecalciferol 0.025 mg oral tablet (20 sources) Vitamin D Start: 09-02-2022 cholecalciferol (Vitamin D3) 25 MCG (1000 UT) tablet 09/02/2022 Active cyclobenzaprine hydrochloride 10 mg oral tablet (6 sources) Muscle Relaxant Start: 04-15-2023 take 1 tablet by mouth three times daily as needed for muscle spasms Cyclobenzaprine 10 mg tablet Active 10 mg PO THREE TIMES A DAY as needed for muscle spasm April 15, 2023 12:00am do not drive/ operate heavy equipment after taking this medication gabapentin 600 mg oral tablet (4 sources) Anti-epileptic Agent Start: 01-09-2025 take 1 tablet by mouth three times daily gabapentin (Neurontin) 600 MG tablet Take 600 mg by mouth 3 times daily. 01/09/2025 Active Start: 08-26-2022 End: 08-26-2022 gabapentin (Neurontin) capsu le 100 mg levothyroxine sodium 0.088 mg oral tablet (20 sources) l-Thyroxine Start: 07-18-2022 End: 01-10-2025 take 1 tablet by mouth once daily levothyroxine (Synthroid, Levoxyl) 88 MCG tablet Indications: Postsurgical hypothyroidism TAKE 1 TABLET BY MOUTH EVERY DAY 90 tablet 3 01/10/2025 Active Start: 01-03-2020 take 1 tablet by fidelina th once daily Levothyroxine (Synthroid) 75 mcg tablet Active 75 ug PO DAILY January 03, 2020 12:00am take 1 tablet by fidelina th once daily levothyroxine (SYNTHROID) 88 MCG tablet Take 88 mcg by mouth Daily 0 Active lidocaine 0.04 mg/mg medicated patch (3 sources) Antiarrhythmic, Amide Local Anesthetic Start: 12-27-2019 End: 01-06-2020 lidocaine 4 % external patch Place 1 patch onto the skin daily for 10 days Apply to affected area for 12 hours and then remove for 12 hours 10 patch 0 12/27/2019 01/06/2020 Active Start: 12-27-2019 End: 12-27-2019 lidocaine PF 1 % injection 5 mL lisinopril 10 mg oral tablet (11 sources) Angiotensin Converting Enzyme Inhibitor Start: 10-25-2024 take 1 tablet by mouth once daily lisinopril 10 MG tablet Indications: Essential hypertension Take 1 tablet (10 mg) by mouth daily. 90 tablet 10/25/2024 Active Start: 08-31-2024 End: 10-22-2024 take 1 tablet by mouth once daily lisinopril 10 MG tablet Indications: Essential hypertension TAKE 1 TABLET (10 MG) BY MOUTH DAILY. 90 tablet 10/04/2024 10/22/2024 Discontinued (Reorder) naproxen 500 mg oral tablet (16 sources) Nonsteroidal Anti-inflammatory Drug Start: 04-15-2023 take 1 tablet by mouth twice daily Naproxen 500 mg tablet Active 500 mg PO TWICE A DAY 20 April 15, 2023 12:00am Start: 01-03-2020 take 1 capsule by mo [facility] twice daily as needed Naproxen Sodium (Aleve) 220 mg capsule Active 220 mg PO TWICE A DAY as needed January 03, 2020 12:00am Start: 12-27-2019 End: 01-03-2020 take 1 tablet by mouth twice daily naproxen (NAPROSYN) 500 MG tablet Take 1 tablet by mouth 2 times daily for 7 days 14 tablet 0 12/27/2019 01/03/2020 Active Start: 03-11-2018 take 1 tablet by [facility] twice daily as needed for pain [facility] NAPROXEN SODIUM 220 MG tablet Indications: Knee pain, unspecified chronicity, unspecified laterality TAKE 1 TABLET BY MOUTH 2 TIMES DAILY NEEDED FOR PAIN TAKE WITH FOOD 100 tablet 5 03/11/2018 Active Tirzepatide-Weight Managemen t (Zepbound) 5 MG/0.5ML solution auto-injector (4 sources) Start: 12-21-2023 Tirzepatide-We ight Management (Zepbound) 5 MG/0.5ML solution auto-injector Indications: Class 2 obesity with body mass index (BMI) of 35.0 to 35.9 in adult, unspecified obesity type, unspecified whether serious comorbidity present Inject 5 mg under the skin every 7 days. Do not start before December 21, 2023. 6 mL 12/21/2023 Active Wegovy 2.4 MG/0.75ML solutio n auto-injector (9 sources) Start: 08-25-2024 Wegovy 2.4 MG/ 0.75ML solution auto-injector Inject 2.4 mg under the skin every 7 days. 08/25/2024 Active Completed/Discontinued Medications Medication Drug Class(es) Dates Sig (Normalized) Sig (Original) acetaminophen 500 mg oral tablet (2 sources) Start: 08-26-2022 End: 08-26-2022 acetaminophen (Tylenol) tablet 1,000 mg ALPRAZolam 0.25 mg disintegrating oral tablet (2 sources) Benzodiazepine Start: 08-26-2022 End: 08-26-2022 ALPRAZolam (Xanax) disintegrating tablet 0.25 mg bacitracin zinc 0.5 unt/mg topical ointment (2 sources) Start: 12-27-2019 End: 12-27-2019 bacitracin ointment Start: 12-27-2019 bacitracin 500 UNIT/GM ointment Apply topically 2 times daily. 1 Tube 0 12/27/2019 Active calcium chloride 0.0014 meq/ ml / potassium chloride 0.004 meq/ml / sodium chloride 0.103 meq/ml / sodium lactate 0.028 meq/ml injectable solution (4 sources) Start: 08-26-2022 End: 08-26-2022 lactated ringers infusion Collagen-Vitamin C-Biotin (Collagen 1500/C) 500-50-0.8 MG capsule (14 sources) Start: 09-02-2022 End: 09-01-2024 Collagen-Vitamin C-Biotin (Collagen 1500/C) 500-50-0.8 MG capsule 09/02/2022 09/01/2024 Discontinued Start: 09-02-2022 Collagen-Vitam in C-Biotin (Collagen 1500/C) 500-50-0.8 MG capsule 09/02/2022 Active Start: 09-02-2022 Collagen-Vitam in C-Biotin (Collagen 1500/C) 500-50-0.8 MG capsule 1 ml diphenhydrAMINE hydrochloride 50 mg/ml cartridge (2 sources) Histamine-1 Receptor Antagonist Start: 08-26-2022 End: 08-26-2022 diphenhydrAMINE (BENADryl) injection 12.5 mg doxycycline monohydrate 100 mg oral capsule (8 sources) Tetracycline-cla ss Drug Start: 01-03-2020 End: 04-15-2023 take 2 capsules by mouth twice daily, then take 1 capsule by mouth once daily Doxycycline Monohydrate 100 mg capsule Discontinued 100 mg PO TWICE A DAY January 03, 2020 12:00am April 15, 2023 9:27am Except 2 capsules at once on day 1 famotidine 20 mg oral tablet (2 sources) Histamine-2 Receptor Antagonist Start: 08-26-2022 End: 08-26-2022 famotidine (Pepcid) tablet 20 mg 2 ml fentaNYL 0.05 mg/ml injection (4 sources) Opioid Agonist Start: 08-26-2022 End: 08-26-2022 fentaNYL (Sublimaze) injection 50 mcg Start: 08-26-2022 End: 08-26-2022 fentaNYL (Sublimaze) injecti on 25 mcg Fish Oils (15 sources) Start: 06-12-2023 End: 02-02-2025 omega-3 (Fish Oil) 1200 MG c apsule 06/12/2023 02/02/2025 Discontinued Start: 06-12-2023 omega-3 (Fish Oil) 1200 MG capsule 06/12/2023 Active Start: 06-12-2023 omega-3 (Fish Oil) 1200 MG capsule 14 actuat fluticasone furoate 0.1 mg/actuat dry powder inhaler (1 source) Corticosteroid Start: 08-09-2021 End: 07-30-2022 take 1 puff(s) by mouth once daily Arnuity Ellipta 100 MCG/ACT inhaler TAKE 1 PUFF BY MOUTH EVERY DAY 0 08/09/2021 07/30/2022 Discontinued (Therapy completed) labetalol (Normodyne,Trandate ) injection 5 mg (2 sources) Start: 08-26-2022 End: 08-26-2022 labetalol (Normodyne,Tranda te) injection 5 mg 1 ml LORazepam 2 mg/ml injection (2 sources) Benzodiazepine Start: 08-26-2022 End: 08-26-2022 LORazepam (Ativan) injection 0.5 mg 1 ml meperidine hydrochloride 25 mg/ml cartridge (2 sources) Opioid Agonist Start: 08-26-2022 End: 08-26-2022 meperidine (Demerol) injection 12.5 mg 2 ml ondansetron 2 mg/ml injection (2 sources) Serotonin-3 Receptor Antagonist Start: 08-26-2022 End: 08-26-2022 ondansetron (Zofran) injection 4 mg oseltamivir 75 mg oral capsule (6 sources) Neuraminidase Inhibitor Start: 08-13-2024 End: 08-18-2024 take 1 capsule by mouth every twelve hours Oseltamivir (Tamiflu) 75 mg capsule Discontinued 75 mg PO Q12H 10 5 0 August 13, 2024 1:00am August 17, 2024 1:00am August 18, 2024 1:11am oxyCODONE (2 sources) Opioid Agonist Start: 08-26-2022 End: 08-26-2022 oxyCODONE (Roxicodone) immediate release tablet 5 mg 50 ml sodium chloride 9 mg/ml injection (20 sources) Start: 08-26-2022 End: 08-26-2022 sodium chloride 0.9 % bolus 500 mL Start: 08-26-2022 End: 08-26-2022 sodium chloride 0.9 % infusi on Start: 08-26-2022 End: 08-26-2022 sodium chloride 0.9% (NS) fl ush 10 mL thiamine 100 mg oral tablet (15 sources) Start: 06-12-2023 End: 02-02-2025 thiamine (,Vitamin B-1,) 100 MG tablet 06/12/2023 02/02/2025 Discontinued Tirzepatide-Weight Managemen t (Zepbound) 2.5 MG/0.5ML solution auto-injector (1 source) Start: 11-21-2023 End: 12-13-2023 Tirzepatide-Weight Managemen t (Zepbound) 2.5 MG/0.5ML solution auto-injector Indications: Class 2 obesity with body mass index (BMI) of 35.0 to 35.9 in adult, unspecified obesity type, unspecified whether serious comorbidity present Inject 2.5 mg under the skin every 7 days for 4 doses. 2 mL 11/21/2023 12/13/2023 Tirzepatide-Weight Managemen t (Zepbound) 5 MG/0.5ML solution auto-injector (2 sources) Start: 12-21-2023 End: 08-31-2024 Tirzepatide-Weight Managemen t (Zepbound) 5 MG/0.5ML solution auto-injector Indications: Class 2 obesity with body mass index (BMI) of 35.0 to 35.9 in adult, unspecified obesity type, unspecified whether serious comorbidity present Inject 5 mg under the skin every 7 days. Do not start before December 21, 2023. 6 mL 12/21/2023 08/31/2024 Discontinued Start: 12-21-2023 Tirzepatide-We ight Management (Zepbound) 5 MG/0.5ML solution auto-injector Indications: Class 2 obesity with body mass index (BMI) of 35.0 to 35.9 in adult, unspecified obesity type, unspecified whether serious comorbidity present Inject 5 mg under the skin every 7 days. Do not start before December 21, 2023. 6 mL 12/21/2023 Active vitamin b12 0.1 mg oral tablet (20 sources) Vitamin B12 Start: 09-02-2022 End: 02-02-2025 cyanocobalamin (Vitamin B-12 ) 100 MCG tablet 09/02/2022 02/02/2025 Discontinued Problems Active Problems Problem Classification Problem Date Documented Date Episodic/Chronic Administrative/social admission (3 sources) Counseling procedure with explicit context; Translations: [Vaccine counseling] Episodic Chronic obstructive pulmonary disease and bronchiectasis (20 sources) Pulmonary emphysema; Translations: [Emphysema, unspecified] Onset: 08-13-2022 Chronic Complications of surgical procedures or medical care (3 sources) Postoperative hypothyroidism; Translations: [Postprocedural hypothyroidism] 10-16-2023 Chronic Disorders of lipid metabolism (20 sources) Pure hypercholesterolemia; Translations: [Pure hypercholesterolemia, unspecified] Onset: 12-08-2016 12-08-2016 Chronic Essential hypertension (16 sources) Essential hypertension; Translations: [Essential (primary) hypertension] Onset: 09-01-2024 09-01-2024 Chronic External cause codes: Fall (1 source) Fall; Translations: [Fall, initial encounter] Immunizations and screening for infectious disease (16 sources) Encounter for immunization; Translations: [Other specified vaccinations against streptococcus pneumoniae [pneumococcus]] Onset: 02-02-2025 10-16-2023 Episodic Influenza (11 sources) Influenza due to Influenza A virus; Translations: [Influenza due to other identified influenza virus with other respiratory manifestations] 08-13-2024 Episodic Joint disorders and dislocations; trauma-related (1 source) Traumatic arthropathy, right knee; Translations: [Traumatic arthropathy, right knee] Onset: 09-28-2024 Chronic Nutritional deficiencies (7 sources) Vitamin D deficiency; Translations: [Vitamin D deficiency, unspecified] Onset: 05-05-2024 Chronic Osteoarthritis (3 sources) Osteoarthritis of knee; Translations: [Unilateral primary osteoarthritis, unspecified knee] Onset: 08-11-2024 Chronic Other connective tissue disease (4 sources) History of total knee arthroplasty; Translations: [Presence of right artificial knee joint] 10-25-2024 Chronic Other connective tissue disease (1 source) History of right total knee replacement; Translations: [Presence of right artificial knee joint] 11-11-2024 Chronic Other lower respiratory disease (2 sources) Multiple nodules of lung; Translations: [Other nonspecific abnormal finding of lung field] 02-02-2025 Episodic Other lower respiratory disease (2 sources) Other nonspecific abnormal finding of lung field; Translations: [Other nonspecific abnormal finding of lung field] Onset: 02-02-2025 Episodic Other lower respiratory disease (1 source) Solitary pulmonary nodule; Translations: [Solitary pulmonary nodule] Onset: 03-16-2025 Episodic Other nutritional; endocrine; and metabolic disorders (3 sources) Obesity; Translations: [Other obesity due to excess calories] Chronic Other nutritional; endocrine; and metabolic disorders (2 sources) Obesity caused by energy imbalance; Translations: [Other obesity due to excess calories] 10-07-2022 Chronic Other nutritional; endocrine; and metabolic disorders (2 sources) Other obesity due to excess calories; Translations: [Other obesity due to excess calories] Onset: 02-02-2025 Chronic Other nutritional; endocrine; and metabolic disorders (2 sources) Body mass index (BMI) 30.0-30.9, adult; Translations: [Body mass index (BMI) 30.0-30.9, adult] Onset: 02-02-2025 Chronic Other nutritional; endocrine; and metabolic disorders (1 source) Obesity, unspecified; Translations: [Obesity, unspecified] Onset: 05-05-2024 Chronic Other screening for suspected conditions (not mental disorders or infectious disease) (18 sources) Patient encounter status; Translations: [Encounter for screening for malignant neoplasm of colon] Onset: 08-31-2024 Episodic Other upper respiratory infections (6 sources) Upper respiratory infection; Translations: [Acute upper respiratory infection, unspecified] 04-15-2023 Episodic Residual codes; unclassified (1 source) Pneumococcal vaccination declined; Translations: [Immunization not carried out because of patient refusal] 11-13-2023 Episodic Screening and history of mental health and substance abuse codes (1 source) Tobacco use and exposure - finding; Translations: [Personal history of tobacco use] 12-06-2016 Chronic Spondylosis; intervertebral disc disorders; other back problems (1 source) Spondylosis without myelopathy or radiculopathy, lumbar region; Translations: [Spondylosis without myelopathy or radiculopathy, lumbar region] Onset: 01-16-2025 Chronic Sprains and strains (6 sources) Strain of muscle at thorax level; Translations: [Strain of muscle and tendon of unspecified wall of thorax, initial encounter] 04-15-2023 Episodic Superficial injury; contusion (1 source) Contusion of rib; Translations: [Rib contusion, left, initial encounter] Episodic Thyroid disorders (20 sources) Hypothyroidism; Translations: [Other specified hypothyroidism] Onset: 08-13-2022 08-13-2022 Chronic Unclassified (1 source) Contusion of left knee; Translations: [Contusion of left knee, initial encounter] Unclassified (1 source) Laceration of left forearm; Translations: [Forearm laceration, left, initial encounter] Unclassified (1 source) Encounter for immunization safety counseling; Translations: [Encounter for immunization safety counseling] Onset: 02-02-2025 Unclassified (1 source) Obesity, class 1; Translations: [Obesity, class 1] Onset: 02-02-2025 Unclassified (2 sources) ER Follow-up; Translations: [ER Follow-up] Onset: 11-11-2024 Unclassified (2 sources) Other; Translations: [Other] Onset: 09-06-2024 Past or Other Problems Problem Classification Problem Date Documented Da te Episodic/Chronic Other and unspecified benign neoplasm (3 sources) Lipoma of chest wall; Translations: [Benign lipomatous neoplasm of skin and subcutaneous tissue of trunk] Episodic Other connective tissue disease (2 sources) Disorder of soft tissue; Translations: [Other specified soft tissue disorders] Episodic Other gastrointestinal disorders (3 sources) Soft mass of abdomen; Translations: [Intra-abdominal and pelvic swelling, mass and lump, unspecified site] Episodic Other lower respiratory disease (20 sources) Nodule of lung; Translations: [Solitary pulmonary nodule] Onset: 08-13-2022 Episodic Other non-traumatic joint disorders (4 sources) Pain in right knee; Translations: [Pain in joint, lower leg] Onset: 10-28-2024 09-01-2024 Episodic Other skin disorders (1 source) Localized swelling, mass and lump, right lower limb; Translations: [Localized swelling, mass and lump, right lower limb] Onset: 10-08-2024 Episodic Phlebitis; thrombophlebitis and thromboembolism (10 sources) Acute deep vein thrombosis of lower limb; Translations: [Acute embolism and thrombosis of unspecified deep veins of right lower extremity] Onset: 10-29-2024 10-25-2024 Episodic Screening and history of mental health and substance abuse codes (20 sources) Tobacco use and exposure - finding; Translations: [Personal history of nicotine dependence] Onset: 12-06-2016 Episodic Unclassified (1 source) Encounter for immunization safety counseling; Translations: [Encounter for immunization safety counseling] Onset: 02-02-2025 Unclassified (1 source) Obesity, class 1; Translations: [Obesity, class 1] Onset: 02-02-2025 Results Test Name Value Interpretation Reference Range Facility 36on 02-11-2025 36 NOV 03/23/25 Normal [facility] Office Visiton 02-02-2025 Follow-up visit [id number] Isis Ulrich 1960 F [facility] Provider Department Center 02/02/2025 [id number] CASTILLO [facility] Family History Problem Relation Age of Onset COPD Brother Other Brother Comments: Hx MRSA infection Diabetes Mother Hypertension Mother Obesity Sister Diabetes Sister Hyperlipidemia Sister Other Sister Comments: anorexia - eating disorder Other Father Comments: colon resection COPD Father Family Status - Relation Status Age at Brother Mother Alive Sister Alive Sister Father Alive Child Alive Child Alive Level of Service:13059 [place] PERIODIC PREVENTIVE MED EST PATIENT 40-64YRS Reason for Visit and Comments: Annual Exam [83] Normal [facility] Progress Noteon 02-02-2025 Progress Note Chronic. Stable on levothyroxine. Continue current tx. Normal [facility] Progress Note Chronic. Stable. Low 10 yr risk. Continue to monitor. Encouraged diet, exercise Normal [facility] Progress Note [place] [id number] [facility] [id number] Dept: [phone] Dept Visit type: Established patient Reason for Visit: Annual Exam Assessment and Plan Assessment & Plan Annual physical exam Discussed preventative screenings Encounter for screening mammogram for malignant neoplasm of breast Orders: Bilateral screening mammogram with tomosynthesis; Future Lung nodules Chronic. Prev Stable 12 month follow up due Orders: CT lung screening low dose; Future Personal history of nicotine dependence Orders: CT lung screening low dose; Future Need for pneumococcal 20-valent conjugate vaccination Orders: Pneumococcal conjugate vaccine 20-valent IM (PREVNAR 20) Immunization counseling Recommend rsv, shingrix Acute deep vein thrombosis (DVT) of right lower extremity, unspecified vein (HCC) Acute s/p R TKA. Has been on eliquis since 10/2024. Discussed 3-6 month duration. Having slow progress d/t pain, swelling. In pain management in [place], currently in PT. Just started driving a few weeks ago and currently back to work PT. Will increase to FT next week. Shared decision making used to continue eliquis for 6 month duration d/t not back to full acitivity. Pure hypercholesterolemia Chronic. Stable. Low 10 yr risk. Continue to monitor. Encouraged diet, exercise Class 1 obesity due to excess calories with serious comorbidity and body mass index (BMI) of 30.0 to 30.9 in adult Chronic. Improving. Currently on wegovy through [place] independent clinic. Essential hypertension Chronic. Controlled on lisinopril 10 mg daily. Continue current tx. Anticipate improved bp with weight reduction. May be realistic to d/c in the future. Continue to monitor. Other emphysema (HCC) Chronic. Noted on CT lung screening. Sx stable without inhalers. Discussed respiration protective vaccines. Other specified hypothyroidism Chronic. Stable on levothyroxine. Continue current tx. Vitamin D deficiency Chronic. Uncontrolled. Increase vit D from 2000 u to 3000 u daily Chronic pain of right knee Chronic. Since right TKA. Managed by pain management in [place]. Stable on gabapentin 600 mg TID. Continue tx and follow up with prescribing provider. Follow up for eliquis follow up 04/2025, annual 1 yr 40 min sarah. Subjective HPI Pt is here for physical Had acute DVT after right TKA 4 months ago She is now in pain management and on gabapentin 600 mg TID States that she is in PT and improving but activity is still limited HTN- Controlled on lisinopril. Has some dry cough Hypothyroid- Stable on levothyroxine 88 mcg Lab Results Component Value Date TSH 1.25 09/04/2024 Obesity- On wegovy per clinic in [place] Wt Readings from Last 6 Encounters: 02/02/25 176 lb 12.8 oz (80.2 kg) 11/11/24 164 lb 12.8 oz (74.8 kg) 09/06/24 171 lb (77.6 kg) 08/31/24 173 lb 11.2 oz (78.8 kg) 02/06/24 190 lb (86.2 kg) 11/13/23 198 lb 3 oz (89.9 kg) Improved cravings Vit d- Currently on 1000 u HLD- The 10-year ASCVD risk score (Lam CALDERON, et al., 2019) is: 4.5% Values used to calculate the score: Age: 64 years Sex: Female Is Non- : No Diabetic: No Tobacco smoker: No Systolic Blood Pressure: 126 mmHg Is BP treated: Yes HDL Cholesterol: 70 mg/dL Total Cholesterol: 196 mg/dL HM- Mammogram due PAP utd Review of Systems Constitutional: Negative for activity change and fatigue. Respiratory: Positive for cough. Negative for shortness of breath. Cardiovascular: Negative for chest pain. Gastrointestinal: Negative for nausea and vomiting. Allergies[1] Current Medications[2] Medical History[3] Social History Tobacco Use Smoking status: Former Current packs/day: 0.00 Average packs/day: 1.5 packs/day for 38.0 years (57.0 ttl pk-yrs) Types: Cigarettes Start date: 12/12/1980 Quit date: 03/18/2016 Years since quittin.8 Passive exposure: Never Smokeless tobacco: Never Tobacco comments: I started in high school (), quit in 1991, started in 1996, quit in 2007 - 2008, quit 2016 Substance Use Topics Alcohol use: Not Currently Alcohol/week: 2.0 standard drinks of alcohol Comment: Had surgery, been on meds for 5 months Surgical History[4] Family History[5] Objective BP 126/68 Pulse 80 Wt 176 lb 12.8 oz (80.2 kg) SpO2 95% BMI 30.83 kg/m? Physical Exam Constitutional: General: She is not in acute distress. Appearance: She is not ill-appearing or toxic-appearing. HENT: Head: Normocephalic and atraumatic. Neck: Thyroid: No thyromegaly. Cardiovascular: Rate and Rhythm: Normal rate and regular rhythm. Pulmonary: Effort: Pulmonary effort is normal. Breath sounds: Normal breath sounds. Musculoskeletal: Cervical back: Neck supple. Right lower leg: No edema. Left lower leg: No edema. Comments: Right knee swelling (improved from previous), benign surgical inci (more content not included)... Normal [facility] Progress Note Chronic. Controlled on lisinopril 10 mg daily. Continue current tx. Anticipate improved bp with weight reduction. May be realistic to d/c in the future. Continue to monitor. Normal [facility] Progress Note Chronic. Noted on CT lung screening. Sx stable without inhalers. Discussed respiration protective vaccines. Normal [facility] 36on 01-10-2025 36 NOV 02/02/25 Normal [facility] Lumbar Spine 2 or 3 Viewson 01-06-2025 Lumbar Spine 2 or 3 Views [facility] Imaging Services [address] [place] [address] [id number] Lumbar Spine 2 or 3 Views MR#: [id number] Acct: [id number] Name: ISIS ULRICH Rep #: [id number] : 1960 F 64 From: Nakia Heath MD PCP: Dr. Rebeca Silva MD Status: REG CLI Study: Lumbar Spine 2 or 3 Views Date of Exam: Exam# [id number] Ordering Dr: Magdiel Oakley MD EXAM: XR Lumbosacral Spine, 2 or 3 Views CLINICAL INDICATION: SPONDYLOSIS WITHOUT MYELOPATHY OR RADICULOPATHY, LUMBAR REGION TECHNIQUE: Frontal and lateral views of the lumbar spine and sacrum. COMPARISON: No relevant prior studies available. FINDINGS: VERTEBRAE: Mild multilevel endplate degenerative changes of L1-2 S1. Moderate disc disease of L5- S1. Moderate facet arthropathy of L4-S1. No acute fracture. Normal alignment. SACRUM/COCCYX: Unremarkable as visualized. No acute fracture. DISC SPACES: No acute findings. No significant narrowing. SOFT TISSUES: Unremarkable. RAD/Lumbar Spine 2 or 3 Views IMPRESSION: Degenerative changes as above. Reading Location: [facility] CC: Dr. Magdiel Oakley MD; Dr. Rebeca Silva MD Associate Media Director: Signed Normal [facility] Re-Evaluation - PT (1)on Re-Evaluation - PT (1) [facility] Physical Therapy [facility] [place] [address] / REEVALUATION / MEDICARE RECERTIFICATION PHYSICAL THERAPY MR#: [id number] Acct: [id number] Name: ISIS ULRICH Rep #: [id number] : 1960 64 From: Vishal De PT, ATC Referring Dr.: Dr. Mele Allen MD Status:REG RCR Insurance: [employer] SELF PAY INSURANCE Re-Evaluation Intro: Dr. Mele Allen MD, It has been my pleasure to treat ISIS ULRICH over the last 29 visits for R TKA 09/17/24. Please see the progress note below for an update on the physical therapy plan of care! Subjective Subjective: I dont usually have pain, but I am sore today Objective Objective/Function: R knee ROM: 0-10-97 degrees R knee MMT: flex= 17, ext= 7 #F R knee pain ranges from 2-7/10 Pt still lacks functional strength and ROM at this time Plan Plan Plan: 12/20/24- Continue to focus on ROM and strength of R knee at this time. Balance/Gait/Functional tests Balance/Special Test Scores Lower Extremity Functional Score: 30 Goals Goals Goal 1:: Decrease R knee pain x 50% to aid with sleep Goal Time Frame: 6-8 Weeks Goal Progress: Progressing Goal 2:: Increase R knee ROM x 40 degrees to aid with restoring a more normalized gait pattern Goal Time Frame: 6-8 Weeks Goal Progress: Progressing Goal 3:: Increase R knee strength x 20 #F to aid with stair negotiation Goal Time Frame: 6-8 Weeks Goal Progress: Progressing Goal 4:: Perform the TUG in under 15 seconds Goal Time Frame: 6-8 Weeks Goal Progress: Progressing Goal 5:: I with HEP Goal Time Frame: 6-8 Weeks Anticipated Interventions Anticipated Interventions Patient/Client Instruction: Educate patient on: Condition and Plan of Care For the Purpose of:: To improve self management Therapeutic Exercise to Include: Strength training, Endurance training, Balance training, Flexibilty training, Gait and locomotor training, Passive ROM, Active ROM and Dynamic Lumbar Stabilization For the Purpose of:: To decrease pain, To increase ROM and To improve muscle performance and motor function Cryotherapy (ice pack, ice massage): Yes For the Purpose of:: To decrease pain Re-Evaluation Ending Re-evaluation ending: Please do not hesitate to contact me at [phone] by phone or if you have questions or concerns regarding this new plan of care! Sincerely, Vishal De, PT, ATC 12/20/24 1506 CC: Dr. Mele Allen MD; No Primary Care Physician [facility] Signed For Medicare only, by signing this I certify the plan of care. Physicians Signature Date [facility] 36on 11-22-2024 36 Please add to note t o address/discuss at upcoming visit [facility] 36 We did not discuss. ER follow up for DVT. She is coming back in January. Normal [facility] 36on 11-18-2024 36 This patient has had a prior lung screening CT scan at [facility]. According to our records, he/she is now due for an annual lung screening CT scan. Please evaluate and order this annual screening if your patient still meets lung screening criteria. Patient had an order for an annual screening but it has . Normal [facility] Office Visiton 11-11-2024 Follow-up visit [id number] Isis Ulrich 1960 F Date Provider Department Center 11/11/2024 [id number] [facility] Family History Problem Relation Age of Onset COPD Brother Other Brother Comments: Hx MRSA infection Diabetes Mother Hypertension Mother Obesity Sister Diabetes Sister Hyperlipidemia Sister Other Sister Comments: anorexia - eating disorder Other Father Comments: colon resection COPD Father Family Status - Relation Status Age at Brother Mother Alive Sister Alive Sister Father Alive Child Alive Child Alive Level of Service:88910 NC OFFICE/OUTPATIENT ESTABLISHED LOW MDM 20 MIN Reason for Visit and Comments: ER Follow-up [831] Normal [facility] Progress Noteon 11-11-2024 Progress Note [facility] [address] [facility] [address] Dept: [phone] Dept Visit type: Established patient Reason for Visit: ER Follow-up Assessment and Plan Assessment & Plan Acute deep vein thrombosis (DVT) of right lower extremity, unspecified vein (HCC) Acute. Provoked. Right TKA. Discussed eliquis x 3-6 months. Started 10/25/24. Follow up at 3 month nakia to reassess Orders: apixaban (Eliquis) 5 MG tablet; Take 1 tablet (5 mg) by mouth 2 times daily. History of total knee arthroplasty, right Follow up for change annual to mid january and dvt f/u. Subjective ER Follow-up Associated symptoms include arthralgias and myalgias. Pertinent negatives include no chest pain, coughing or fatigue. Pt is here for follow up States that she had right TKA on 09/17 States that she had swelling and pain and went to ER 2 weeks later. Negative for DVT 5 weeks post op, pain was worse and she returned to ER and was dx with DVT in RLQ Surgery was at [facility] and is seeing [facility] Was told by ortho that she would be referred to pain management Review of Systems Constitutional: Positive for appetite change. Negative for fatigue. Respiratory: Negative for cough and shortness of breath. Cardiovascular: Positive for leg swelling. Negative for chest pain. Musculoskeletal: Positive for arthralgias, back pain and myalgias. Allergies Allergen Reactions Cefadroxil Swelling Current Outpatient Medications: cholecalciferol (Vitamin D3) 25 MCG (1000 UT) tablet, , Disp: , Rfl: levothyroxine (Synthroid, Levoxyl) 88 MCG tablet, TAKE 1 TABLET BY MOUTH EVERY DAY, Disp: 90 tablet, Rfl: 3 lisinopril 10 MG tablet, Take 1 tablet (10 mg) by mouth daily., Disp: 90 tablet, Rfl: 0 Wegovy 2.4 MG/0.75ML solution auto-injector, Inject 2.4 mg under the skin every 7 days., Disp: , Rfl: apixaban (Eliquis) 5 MG tablet, Take 1 tablet (5 mg) by mouth 2 times daily., Disp: 60 tablet, Rfl: 2 cyanocobalamin (Vitamin B-12) 100 MCG tablet, , Disp: , Rfl: omega-3 (Fish Oil) 1200 MG capsule, , Disp: , Rfl: thiamine (,Vitamin B-1,) 100 MG tablet, , Disp: , Rfl: Past Medical History: Diagnosis Date Goiter Personal history of tobacco use Pure hypercholesterolemia Not in [employer] benefit group Thyroid nodule 2007 Social History Tobacco Use Smoking status: Former Current packs/day: 0.00 Average packs/day: 1.5 packs/day for 31.0 years (46.5 ttl pk-yrs) Types: Cigarettes Start date: 12/12/1980 Quit date: 12/13/2011 Years since quittin.9 Passive exposure: Never Smokeless tobacco: Never Substance Use Topics Alcohol use: Yes Alcohol/week: 2.0 standard drinks of alcohol Types: 2 Standard drinks or equivalent per week Comment: 2 Drinks a month Past Surgical History: Procedure Laterality Date SECTION (HISTORICAL) 1987 SECTION, LOW TRANSVERSE KNEE CARTILAGE SURGERY Right 2016 meniscus tears ([facility] [facility]) MOUTH SURGERY gums bleeding OTHER SURGICAL HISTORY 08/26/2022 soft tissue mass of right side of abdomen REFRACTIVE SURGERY 1989 THYROIDECTOMY, PARTIAL Right 2007 (surgery at [facility]) TOTAL KNEE ARTHROPLASTY Right 09/17/2024 TUBAL LIGATION 1987 Family History Problem Relation Name Age of Onset COPD Brother Tayo Foote Other ([id number]) Brother Tayo Foote Hx MRSA infection Diabetes Mother Tammie Foote Hypertension Mother Tammie Foote Obesity Sister Emilia Diabetes Sister Emilia Hyperlipidemia Sister Emilia Other ([id number]) Sister anorexia - eating disorder Other ([id number]) Father Bryce Foote colon resection COPD Father Bryce Foote Objective BP 128/82 (BP Location: Right arm, Patient Position: Sitting, BP Cuff Size: Adult) Pulse 77 Wt 164 lb 12.8 oz (74.8 kg) SpO2 98% BMI 28.74 kg/m? Physical Exam Constitutional: General: She is not in acute distress. Appearance: Normal appearance. HENT: Head: Normocephalic and atraumatic. Cardiovascular: Rate and Rhythm: Normal rate and regular rhythm. Pulses: Normal pulses. Pulmonary: Effort: Pulmonary effort is normal. Breath sounds: Normal breath sounds. Musculoskeletal: General: Swelling (RLE) present. Right lower leg: No edema. Left lower leg: No edema. Skin: General: Skin is warm and dry. Psychiatric: Mood and Affect: Mood normal. Data Reviewed and Summarized Labs: Imaging/Testing: Kelli Littlejohn, CERTIFIED NURSING ATTENDANT - TEACHER EDUCATION DIRECTOR [facility] Re-Evaluation - PT (1)on Re-Evaluation - PT (1) [facility] Physical Therapy [facility] [address] [place] [address] / REEVALUATION / MEDICARE RECERTIFICATION PHYSICAL THERAPY MR#: [id number] Acct: [id number] Name: ISIS ULRICH Rep #: [id number] : 1960 64 From: Vishal De PT, ATC Referring Dr.: Dr. Mele Allen MD Status:REG RCR Insurance: [place] SELF PAY INSURANCE Re-Evaluation Intro: Dr. Mele Allen MD, It has been my pleasure to treat ISIS ULRICH over the last 13 visits for R TKA 09/17/24. Please see the progress note below for an update on the physical therapy plan of care! Subjective Subjective: Pt reports she just finished her steroid dose pack a couple days ago. The pain is back now. Objective Objective/Function: R knee ROM: 0-15-85 degrees R knee MMT: flex= 9, ext= 13 #F TU R knee pain is 5/10 Pt lacks signifcant functional strength and ROM at this time. Plan Plan Plan: 11/11/24- Continue to focus on ROM and strengthening at this time R knee stretching and strengthening, PROM/mobs, core stab ex's, gait training, stair negotiation, nustep, and HEP Balance/Gait/Functional tests Balance/Special Test Scores Lower Extremity Functional Score: 13 Goals Goals Goal 1:: Decrease R knee pain x 50% to aid with sleep Goal Time Frame: 6-8 Weeks Goal Progress: Progressing Goal 2:: Increase R knee ROM x 40 degrees to aid with restoring a more normalized gait pattern Goal Time Frame: 6-8 Weeks Goal Progress: Progressing Goal 3:: Increase R knee strength x 20 #F to aid with stair negotiation Goal Time Frame: 6-8 Weeks Goal Progress: Progressing Goal 4:: Perform the TUG in under 15 seconds Goal Time Frame: 6-8 Weeks Goal Progress: Progressing Goal 5:: I with HEP Goal Time Frame: 6-8 Weeks Anticipated Interventions Anticipated Interventions Patient/Client Instruction: Educate patient on: Condition and Plan of Care For the Purpose of:: To improve self management Therapeutic Exercise to Include: Strength training, Endurance training, Balance training, Flexibilty training, Gait and locomotor training, Passive ROM, Active ROM and Dynamic Lumbar Stabilization For the Purpose of:: To decrease pain, To increase ROM and To improve muscle performance and motor function Cryotherapy (ice pack, ice massage): Yes For the Purpose of:: To decrease pain Re-Evaluation Ending Re-evaluation ending: Please do not hesitate to contact me at [phone] by phone or if you have questions or concerns regarding this new plan of care! Sincerely, Vishal De, PT, ATC 11/11/24 1335 CC: Dr. eMle Allen MD; No Primary Care Physician [facility] Signed For Medicare only, by signing this I certify the plan of care. Physicians Signature Date [facility] [id number] 11-10-2024 [id number] Scheduled for hospit al follow up 11/11 [facility] 36on 11-08-2024 36 Pt scheduled 5 at 3 pm per Kelli [facility] 36 Can you schedule 40 min hosp f/u pls. [facility] 36on 11-03-2024 36 Needs an ed fu visit marah - continue anticoagulation for at least 3 months recommended and request records please [place] [id number] 10-25-2024 36 Recommend staying on it. BP was not controlled before surgery. Likely needs it ongoing. Can re-eval at December follow up [facility] Emergency Department Summary on 10-25-2024 Emergency Department Summary [facility] Medical Records Department [address] [place] [address] Emergency Department Summary 10/25/24 MR#: [id number] Acct: [id number] Name: ISIS ULRICH Rep #: [id number] : 1960 64 From: Kelly STOKES PCP: Dr. Rebeca Silva MD Status:REG ER Location: ED ADDENDUM by Dr. Sim Ledbetter MD on 10/25/24 at 1554 I did speak to voice to orthopedic office the housing manager to notify them to let Dr. Mele Allen know of his patient's postop DVT. 10/25/24 1554 Cosigner Signature (if applicable): 10/25/24 1550 cc: Dr. Rebeca Silva MD * Signed HPI History of Present Illness Chief Complaint: General Illness Narrative Narrative: 64-year-old female had an outpatient ultrasound of her right leg that was positive for DVT and was sent to the ED. She had a right knee replacement about 5 weeks ago (September 17) with Dr. Mele Allen. Over the last 2 weeks or so she developed increased pain and swelling in the knee and upper calf area. She has been doing physical therapy and recovering overall. She is still taking oxycodone as needed. No fever or chills. No chest pain or shortness of breath. No history of DVT/PE. [facility] Medical History URI (upper respiratory infection) Thoracic myofascial strain Knee pain Home Medications ???Medication ???Instructions ???Recorded ???Last Taken ???Type levothyroxine 75 mcg tablet 75 mcg PO DAILY 01/03/20 Unknown H istory (Synthroid) naproxen sodium 220 mg capsule 220 mg PO BID PRN 01/03/20 Unknown History (Aleve) cyclobenzaprine 10 mg tablet 10 mg PO TID PRN muscle spasm #20 04/15/23 Unknown Rx tabs naproxen 500 mg tablet 500 mg PO BID #20 tabs 04/15/23 Un known Rx apixaban 5 mg (74 tabs) tablets in See Rx Instructions PO .COMPLEX 10/25/24 Unknown Rx a dose pack (Eliquis DVT-PE Treat #74 tabs 30D Start) Allergy/AdvReac Type Severity Reaction Status Date / Time No Known Allergies Allergy Verified 10/25/24 15:17 Family History Mother Diabetes CVD (cardiovascular disease) Surgical History Hx of section History of thyroid surgery History of knee surgery Social History Smoking Status: Never smoker alcohol intake: never ROS ROS ED ROS Narrative Constitutional: Negative for fever, chills, malaise. CVS: Negative for chest pain. Respiratory: Negative for shortness of breath. Neuro: Negative for motor/sensory dysfunction. EXAM Physical Exam Narrative Exam Narrative: CONST: Patient sitting in no acute distress. EYES: Normal inspection. NECK: Normal inspection. RESP: No respiratory distress, CTAB. CVS: Regular rate and rhythm, no murmur, no gallop. SKIN: Color normal, no rash, warm, dry, intact. EXTREMITIES: Midline right knee incision is well-healed. Mild swelling of right knee as compared to left but no warmth or redness. Range of motion intact. Tender over the left mid and upper calf without palpable cords. No lower extremity edema. 2+ DP pulses. NEURO: Alert and answering questions appropriately. PSYCH: Normal affect. Const Vital Signs: 10/25/24 15:16 10/25/24 15:41 Temperature 97.8 F 97.8 F Temperature Source Oral Pulse Rate 78 78 Respiratory Rate 18 18 Blood Pressure 153/79 H 153/79 H Blood Pressure Mean 103 103 Pulse Ox 98 98 Oxygen Delivery Method Room Air Physical Exam Const Vital Signs: 10/25/24 15:16 10/25/24 15:41 Temperature 97.8 F 97.8 F Temperature Source Oral Pulse Rate 78 78 Respiratory Rate 18 18 Blood Pressure 153/79 H 153/79 H Blood Pressure Mean 103 103 Pulse Ox 98 98 Oxygen Delivery Method Room Air MDM MDM MDM Narrative Medical decision making narrative: 64-year-old female is 5 weeks postop from a right knee replacement and developed some knee and upper calf pain and her outpatient duplex ultrasound from today shows a right soleus DVT. No history of DVT/PE. She appears well nontoxic and vital signs are stable. She has no chest pain or shortness of breath so I am not concerned for PE. She had recent blood work 2 months ago preop which shows normal CBC and BMP so this does not need repeated prior to initiating anticoagulation. I thoroughly discussed the risks and benefits of Eliquis. First dose was given here and prescription sent to her pharmacy. I recommended close follow-up with her PCP and she was discharged in stable condition. MDM MDM Narrative Medical decision making narrative: 64-year-old female is 5 weeks postop from a right knee replacement and developed some knee and upper calf pain (more content not included)... Normal [facility] Venous Duplex US, Unilateral on 10-25-2024 Venous Duplex US, Unilateral [facility] Cardiovascular Services [address] [place] [address] Venous Duplex US, Unilateral 10/25/24 1417 MR#: [id number] Acct: [id number] Name: ISIS ULRICH Rep #: [id number] : 1960 64 From: Misael Murrieta MD Attending Dr: DIVYA Moser Status: REG CL I Ordering Dr: Briana White Date: 10/25/24 Location: CVS Sex: F C Admitted: Reason For Study Reason For Study: Pain RLE RIGHT LEFT GSV is normal. CFV is compressible, spontaneous, phasic, competent, CFV is compressible, spontaneous, phasic, competent and demonstrates normal augmentation. and demonstrates normal augmentation. FV is compressible, spontaneous, phasic, competent and demonstrates normal augmentation. POP V is compressible, spontaneous, phasic, competent and demonstrates normal augmentation. T/P Trunk is compressible. PTV is compressible. RT PerV is compressible. Rt SoleusV is DILATED and NON COMPRESSIBLE consistent with acute DVT. Procedure This is a venous duplex using B-mode, color flow and spectral Doppler. Exam performed in department. A preliminary report was called and/or faxed to [facility]. Patient sent to ED per PCP. VL/Venous Duplex US, Unilateral Interpretation Summary Acute deep vein thrombosis noted in the right soleus vein Ordering Physician: Briana White Referring Physician: Rebeca Silva Performed By: Donna Taylor, RDCS, RVT 10/25/241712 Date Misael Murrieta MD CC: DVIYA Moser; No Primary Care Physician Date Dictated: 10/25/241416 Date Transcribed: 10/25/241712 Associate Media Director: Signed Normal [facility] Venous duplex ultrasound rep ortOrdered By: Misael Murrieta on 10-25-2024 US Vein [facility] Cardiovascular Services [address] [place] [address] Venous Duplex US, Unilateral 10/25/241416 MR#: [id number] Acct: [id number] Name: ISIS ULRICH Rep #:[id number] : 1960 64 From: Misael Lee Attending Dr: DIVYA Moser atus: REG CLI Ordering Dr: Briana White Date : 10/25/24 Location: CVS Sex: F C Admitted: Reason For Study Reason For Study: Pain RLE RIGHT LEFT GSV is normal. CFV is compressible, spontaneous, phasic, competent, CFV is compressible, spontaneous, phasic, competent and demonstrates normal augmentation. and demonstrates normal augmentation. FV is compressible, spontaneous, phasic, competent and demonstrates normal augmentation. POP V is compressible, spontaneous, phasic, competent and demonstrates normal augmentation. T/P Trunk is compressible. PTV is compressible. RT PerV is compressible. Rt SoleusV is DILATED and NON COMPRESSIBLE consistent with acute DVT. Procedure This is a venous duplex using B-mode, color flow and spectral Doppler. Exam performed in department. A preliminary report was called and/or faxed to [facility]. Patient sent to ED per PCP. VL/Venous Duplex US, Unilateral Interpretation Summary Acute deep vein thrombosis noted in the right soleus vein Ordering Physician: Briana White Referring Physician: Rebeca Silva Performed By: Donna Taylor, BAYLEE, RVT 10/25/24 1710 Date _ Misael Murrieta MD CC: DIVYA Moser; No Primary Care Physician ~ Date Dictated: 10/25/24 1417 Date Transcribed: 10/25/241712 Associate Media Director: Signed [facility] Work Phone: 36on 10-22-2024 36 Pt is questioning wether you wanted pt to continue on this. Please advise Normal [facility] 36on 10-13-2024 36 We have been unable to reach your patient to schedule their testing. Test Name: CT lung screening 1st Attempt: 07/15/2024 spoke with patient wants to schedule later 2nd Attempt: 10/13 SAVOhart message sent Normal [facility] Inital Evaluation (1) - PTon 10-05-2024 Inital Evaluation (1) - PT [facility] Physical Therapy [address] [place] [address] / REHABILITATION SERVICES INITIAL EVALUATION MR#: [id number] Acct: [id number] Name: ISIS ULRICH Rep #: [id number] : 1960 64 From: Vishal De PT, ATC Referring Dr.: Dr. Mele Allen MD Status: RE G RCR Insurance: [facility] SELF PAY INSURANCE Patient's Visit Information Visit Information Visit Information: ISIS ULRICH is a 64 year old F referred to Physical Therapy by Dr. Mele Allen MD with a diagnosis of R TKA 09/17/24. Date of Evaluation: 10/05/24 Physical Therapist: Vishal De, PT, ATC Visit Plan Frequency: 2-3x /Week Duration: 4-6 Weeks Plan: R knee stretching and strengthening, PROM/mobs, core stab ex's, gait training, stair negotiation, nustep, and HEP Subjective Subjective: DOS: 09/17/24. Pt reports she had a R TKA performed at that time. Pt reports she had R knee pain for several years prior to having this procedure performed. pt notes she is in a lot of pain today. Pt notes she is having sleep difficulty at this time secondary to pain. Pt reports she has been controlling her pain with the use of meds and ice, but she is still really sore. Pt [place] by herself, [place] Pt notes her basement is finished and she likes to go down there, but she doesn't have to at this time. Pt reports her R knee will go numb on her at times. 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 Pt reports her job requires her to walk for long distances and negotiate stairs. Pt reports 6/10 pain while sitting here in the clinic, 10/10 pain at worst. Pain R TKA: Pain Intensity (Out of 10): 6 Pain Intensity Range: 10 Objective Objective: Neuro: B LE sensation is WNL to light touch. Observation: Incision is still healing at this time. No signs of infection. Mild tenderness in her R gastroc region. TU seconds ROM: L knee 0-130 ; R knee 0-20-70 degrees MMT: L knee flex= 35, ext= 30 #F; R knee flex= 4, ext= 6 #F Balance/Special Test Scores Lower Extremity Functional Score: 13 Goals Goal 1:: Decrease R knee pain x 50% to aid with sleep Goal Time Frame: 6-8 Weeks Goal 2:: Increase R knee ROM x 40 degrees to aid with restoring a more normalized gait pattern Goal Time Frame: 6-8 Weeks Goal 3:: Increase R knee strength x 20 #F to aid with stair negotiation Goal Time Frame: 6-8 Weeks Goal 4:: Perform the TUG in under 15 seconds Goal Time Frame: 6-8 Weeks Goal 5:: I with HEP Goal Time Frame: 6-8 Weeks Rehabilitation Potential Physical Therapy Diagnosis: Pt has R knee pain, weakness, and limited ROM secondary to R TKA Rehabilitation Potential: Good Anticipated Interventions Patient/Client Instruction: Educate patient on: Condition and Plan of Care For the Purpose of:: To improve self management Therapeutic Exercise to Include: Strength training, Endurance training, Balance training, Flexibilty training, Gait and locomotor training, Passive ROM, Active ROM and Dynamic Lumbar Stabilization For the Purpose of:: To decrease pain, To increase ROM and To improve muscle performance and motor function Cryotherapy (ice pack, ice massage): Yes For the Purpose of:: To decrease pain Text: Thank you for the opportunity to evaluate your patient. For Medicare and Medicare HMO plans, please review the plan of care and approve it. It will need to be FAXED BACK to us at [phone] for Medicare purposes. For Medicare only, by signing this I certify the plan of care. Please let me know if there are questions or concerns regarding this plan of care. Physician Signature: Date: 10/05/24 1136 CC: Dr. Mele Allen MD; No Primary Care Physician [facility] Signed Normal [facility] 36on 10-01-2024 36 la Normal [facility] Venous Duplex US, Unilateral on 10-01-2024 Venous Duplex US, Unilateral [facility] Cardiovascular Services [address] [place] [address] Venous Duplex US, Unilateral 10/01/24 1101 MR#: [id number] Acct: [id number] Name: AYDEEISIS EVE Rep #: [id number] : 1960 64 From: Burton Lomas MD Attending Dr: DIVYA Moser Status: REG CL I Ordering Dr: Briana White Date: 10/01/24 Location: [facility] Sex: F C Admitted: Reason For Study Reason For Study: Swelling RIGHT LEFT GSV is normal. CFV is compressible, spontaneous, phasic, competent, CFV is compressible, spontaneous, phasic, competent and demonstrates normal augmentation. and demonstrates normal augmentation. FV is compressible, spontaneous, phasic, competent and demonstrates normal augmentation. POP V is compressible, spontaneous, phasic, competent and demonstrates normal augmentation. T/P Trunk is compressible. PTV is compressible. RT PerV is compressible. Procedure This is a venous duplex using B-mode, color flow and spectral Doppler. Exam performed in department. A preliminary report was called and/or faxed to DIVYA Moser. VL/Venous Duplex US, Unilateral Interpretation Summary Deep veins of the right lower extremity are patent and compressible segmentally. There is no evidence of right lower extremity deep vein thrombosis. Valvular competence appears intact within the proximal deep venous system on the right . The right great saphenous vein appears patent and compressible segmentally. The left common femoral vein is patent and compressible . Ordering Physician: Briana White Performed By: Yudy Hyatt 10/01/241913 Date Burton Lomas MD CC: DIVYA Moser; No Primary Care Physician Date Dictated: 10/01/24 1101 Date Transcribed: 10/01/241913 Associate Media Director: Signed Normal [facility] Venous duplex ultrasound rep ortOrdered By: Burton Lomas on 10-01-2024 US Vein [facility] Cardiovascular Services [address] [place] [address] Venous Duplex US, Unilateral 10/01/24 1101 MR#: [id number] Acct: [id number] Name: ISIS ULRICH Rep #:[id number] : 1960 64 From: Burton Lomas MD Attending Dr: DIVYA Moser atus: REG CLI Ordering Dr: Briana White Date : 10/01/24 Location: [facility] Sex: F C Admitted: Reason For Study Reason For Study: Swelling RIGHT LEFT GSV is normal. CFV is compressible, spontaneous, phasic, competent, CFV is compressible, spontaneous, phasic, competent and demonstrates normal augmentation. and demonstrates normal augmentation. FV is compressible, spontaneous, phasic, competent and demonstrates normal augmentation. POP V is compressible, spontaneous, phasic, competent and demonstrates normal augmentation. T/P Trunk is compressible. PTV is compressible. RT PerV is compressible. Procedure This is a venous duplex using B-mode, color flow and spectral Doppler. Exam performed in department. A preliminary report was called and/or faxed to DIVYA Moser. VL/Venous Duplex US, Unilateral Interpretation Summary Deep veins of the right lower extremity are patent and compressible segmentally.There is no evidence of right lower extremity deep vein thrombosis. Valvular competence appears intact within the proximal deep venous system on the right . The right great saphenous vein appears patent and compressible segmentally. The left common femoral vein is patent and compressible . Ordering Physician: Briana White Performed By: Yudy Hyatt 10/01/241913 Date _ Burton Lomas MD CC: DIVYA Moser; No Primary Care Physician ~ Date Dictated: 10/01/24 1101 Date Transcribed: 10/01/241913 Associate Media Director: Signed [facility] Other Phone: Surgical pathology reportOrd ered By: Mary Atkinson on 09-27-2024 Surgical pathology study [facility] Decalcification bone/plaqueo n 09-17-2024 Decalcification bone/plaque Patient Age/Sex Location Account Attending Physician ISIS ULRICH 64/F LABSPEC [id number] Dr. Mele Allen MD Specimen: [id number] Received: 09/17/24 Status: RAKAN Choi Num: [id number] Spec Type: TOTAL KNEE Subm Dr: Dr. Mele Allen MD HEADER OPERATION: Right total knee arthroplasty PRE-OP DIAGNOSIS: Right knee posttraumatic arthritis grade 4 TISSUE SUBMITTED: Right knee bone and tissue MICROSCOPIC DIAGNOSIS Right knee, bone and soft tissue, total knee arthroplasty: * Articular bone with reactive/degenerative changes and fatty marrow spaces. * Fibroadipose tissue with hyperplastic synovium demonstrating mild chronic inflammation. MICROSCOPIC DESCRIPTION Slides are reviewed. GROSS DESCRIPTION Received is one container designated bone and soft tissue right knee. The specimen consists of multiple fragments of ybarra-yellow bone measuring in aggregate 9 x 7.5 x 2.5 cm. Also in the specimen container are multiple fragments of yellow-white soft tissue measuring in aggregate 7 x 5 x 2cm. A number of bony fragments contain articular surfaces consistent with tibial plateau and femoral condyle and display prominent osteophyte formation, eburnation, and erosion. Manager Case sections are submitted in two cassettes as follows: 1 - bone after decalcification, 2 - soft tissue. RS2 09/20/2024 CPT: 23367, 36289 Patient Age/Sex Location Account Attending Physician ISIS ULRICH 64/F LABSPEC [id number] Dr. Mele Allen MD Signed (signature on file) Dr. Mary Atkinson MD 09/27/24 0852 Normal [facility] Comment on above: Performed By: #### P DEC #### [facility] [address] [place], [place], [address] on 09-08-2024 36 Rightfaxed Normal [facility] 36on 09-07-2024 36 Name of caller: Bill pereira Contact phone number: [phone] Option 6 Relationship to Patient: [facility] - Dr Allen Provider: Kelli Littlejohn APRN-ANDREA Practice: [facility] Chief Complaint/Reason for Call: Caller stated to please fax completed surgery clearance form and office note to [phone]. Thank you. Best time of day caller can be reached: Any Patient advised that office/PCP has 24-48 business hours to return their call: No Normal [facility] Office Visiton 09-06-2024 Follow-up visit [id number] Isis Ulrich 1960 F Date Provider Department Center 09/06/2024 [id number] Family History Problem Relation Age of Onset COPD Brother Other Brother Comments: Hx MRSA infection Diabetes Mother Hypertension Mother Obesity Sister Diabetes Sister Hyperlipidemia Sister Other Sister Comments: anorexia - eating disorder Other Father Comments: colon resection COPD Father Family Status - Relation Status Age at Brother Mother Alive Sister Alive Sister Father Alive Child Alive Child Alive Level of Service:03407 NC OFFICE/OUTPATIENT ESTABLISHED MOD MDM 30 MIN Reason for Visit and Comments: Other [0] - Surgical clearance Normal [facility] Progress Noteon 09-06-2024 Progress Note Not in statin benefi t group. Continue fish oil. Encouraged balanced diet, exercise. Monitor. Normal [facility] Progress Note Stable on levothyroxine. Continue current tx. Normal [facility] Progress Note Controlled on lisionpril 10 mg daily. Continue current tx. Normal [facility] Progress Note Sx stable without current pharmacologic tx Normal [facility] Progress Note [facility] [address] [id number] Dept: [phone] Dept Visit type: Established patient Reason for Visit: Other (Surgical clearance) Assessment and Plan 1. Chronic pain of right knee 2. Preoperative clearance Comments: cleared for planned surgery. 3. Essential hypertension Assessment & Plan: Controlled on lisionpril 10 mg daily. Continue current tx. 4. Other emphysema (HCC) Assessment & Plan: Sx stable without current pharmacologic tx 5. Pure hypercholesterolemia Assessment & Plan: Not in statin benefit group. Continue fish oil. Encouraged balanced diet, exercise. Monitor. Follow up in about 6 months (around 03/06/2025) for 20 min HTN, f/u 20 min, team sarah, annual 40 min when due. Subjective HPI Pt presents for pre-op clearance for R total knee with Dr. Allen at [facility] on 09/17/24 Pre-op testing was completed on 08/24/24 Pt denies CP, SOB, ankle swelling, or orthopnea. Has dyspnea on exertion, at baseline Hx of smoking, quit [address] No pharmacologic tx No asthma Denies DENNIS. Pt has had prior surgeries under anesthesia. Denies any complications. Denies hx of DVT/PE Not currently on any NSAIDs or anti-coagulants. Swapnil's Simple Cardiac RiskIndex: High-risk surgery (intraperitoneal, intrathoracic or suprainguinalvascular surgery): no Coronary artery disease: no Congestive heart failure: no History ofcerebrovascular disease: no Insulin treatment for diabetes mellitus: no Preoperative serumcreatinine > 2.0mg/dL: no Total: 0 Interpretation: 0Points Class I 1 Point Class II 2 Points Class III >=3 Points Class IV Class: 1 BP Readings from Last 3 Encounters: 09/06/24 130/78 08/31/24 (!) 142/92 11/13/23 126/84 Wt Readings from Last 3 Encounters: 09/06/24 171 lb (77.6 kg) 08/31/24 173 lb 11.2 oz (78.8 kg) 02/06/24 190 lb (86.2 kg) Lab Results Component Value Date WBC 5.3 09/04/2024 HGB 13.9 09/04/2024 HCT 42.4 09/04/2024 MCV 84.6 09/04/2024 PLT 311 09/04/2024 Lab Results Component Value Date NA 136 09/27/2023 K 4.1 09/27/2023 CL 104 09/27/2023 CO2 27 09/04/2024 BUN 11 09/04/2024 CREATININE 0.61 09/04/2024 GLUCOSE 90 09/04/2024 CALCIUM 9.0 09/04/2024 Lab Results Component Value Date CHLPL 186 12/19/2020 CHLPL 186 09/29/2020 CHOL 182 09/27/2023 CHOL 184 08/21/2022 Lab Results Component Value Date TRIG 70 09/27/2023 TRIG 62 08/21/2022 TRIG 74 12/19/2020 Lab Results Component Value Date HDL 57 09/27/2023 HDL 57 08/21/2022 HDL 59 12/19/2020 Lab Results Component Value Date LDLCALC 111 (H) 09/27/2023 LDLCALC 115 (H) 08/21/2022 LDLCALC 112 12/19/2020 Lab Results Component Value Date VLDL 15 12/19/2020 VLDL 15 09/29/2020 Lab Results Component Value Date CHOLHDLRATIO 3 09/27/2023 CHOLHDLRATIO 3 08/21/2022 The 10-year ASCVD risk score (Lam CALDERON, et al., 2019) is: 4.8% Values used to calculate the score: Age: 64 years Sex: Female Is Non- : No Diabetic: No Tobacco smoker: No Systolic Blood Pressure: 130 mmHg Is BP treated: Yes HDL Cholesterol: 70 mg/dL Total Cholesterol: 196 mg/dL Review of Systems Constitutional: Negative for activity change and fatigue. Respiratory: Negative for cough and shortness of breath. Cardiovascular: Negative for chest pain. Gastrointestinal: Negative for diarrhea and vomiting. Musculoskeletal: Positive for arthralgias. Neurological: Negative for dizziness and headaches. Psychiatric/Behavioral: The patient is nervous/anxious. Allergies Allergen Reactions Cefadroxil Swelling Outpatient Medications Prior to Visit Medication Sig Dispense Refill cholecalciferol (Vitamin D3) 25 MCG (1000 UT) tablet levothyroxine (Synthroid, Levoxyl) 88 MCG tablet TAKE 1 TABLET BY MOUTH EVERY DAY 90 tablet 3 lisinopril 10 MG tablet Take 1 tablet (10 mg) by mouth daily. 30 tablet 1 omega-3 (Fish Oil) 1200 MG capsule Wegovy 2.4 MG/0.75ML solution auto-injector Inject 2.4 mg under the skin every 7 days. cyanocobalamin (Vitamin B-12) 100 MCG tablet (Patient not taking: Reported on 09/06/2024) thiamine (,Vitamin B-1,) 100 MG tablet (Patient not taking: Reported on 09/06/2024) No facility-administered medications prior to visit. Past Medical History: Diagnosis Date Goiter Personal history of tobacco use Pure hypercholesterolemia Not in statin benefit group Thyroid nodule 2007 Social History Tobacco Use Smoking status: Former Current packs/day: 0.00 Average packs/day: 1.5 packs/day for 31.0 years (46.5 ttl pk-yrs) Types: Cigarettes Start date: 12/12/1980 Quit date: 12/13/2011 Years since quittin.7 Passive exposure: Never Smokeless tobacco: Never Substance Use Topics Alcohol use: Yes Alcohol/week: 2.0 standard drinks of alcohol Types: 2 Standard drinks or equivalent per week Comment: 2 Drinks a month Pa (more content not included)... [facility] Progress Note Was not running in labs. Added on [facility] Progress Noteon 09-01-2024 Progress Note Stable on levothyroxine. Continue current tx Normal [facility] Progress Note Uncontrolled. Start lisinopril Recheck in 1 week. Not cleared for surgery until BP controlled. Normal [facility] 37on 08-31-2024 37 Central scheduling's phone number is [phone]. Please call them at your convenience to schedule. Normal [facility] Office Visiton 08-31-2024 Follow-up visit [id number] Isis Ulrich Ildefonso 1960 F Date Provider Department Center 08/31/2024 [id number]-NHAZNLKELLI CASTILLO [facility] Family History Problem Relation Age of Onset COPD Brother Other Brother Comments: Hx MRSA infection Diabetes Mother Hypertension Mother Obesity Sister Diabetes Sister Hyperlipidemia Sister Other Sister Comments: anorexia - eating disorder Other Father Comments: colon resection COPD Father Family Status - Relation Status Age at Brother Mother Alive Sister Alive Sister Father Alive Child Alive Child Alive Level of Service:12052 NC OFFICE/OUTPATIENT ESTABLISHED MOD MDM 30 MIN Reason for Visit and Comments: Other [0] - Surgical clearance Normal [facility] Progress Noteon 08-31-2024 Progress Note [facility] [address] [facility] [address] Dept: [phone] Dept Visit type: Established patient Reason for Visit: Other (Surgical clearance) Assessment and Plan 1. Chronic pain of right knee 2. Preoperative clearance Comments: not cleared until BP controlled. follow up in 1 week. start lisinopril 3. Essential hypertension Assessment & Plan: Uncontrolled. Start lisinopril Recheck in 1 week. Not cleared for surgery until BP controlled. Orders: - lisinopril 10 MG tablet; Take 1 tablet (10 mg) by mouth daily., Starting 08/31/2024, Normal - Microalbumin / creatinine, urine ratio - Comprehensive metabolic panel - CBC auto differential 4. Other specified hypothyroidism Assessment & Plan: Stable on levothyroxine. Continue current tx Orders: - TSH 5. Pure hypercholesterolemia - Lipid panel 6. Vitamin D deficiency - Vitamin D Deficiency Screening (Vit D 25) 7. Screening for diabetes mellitus - Hemoglobin A1c 8. Pulmonary emphysema, unspecified emphysema type (HCC) Comments: sx stable without current pharmacologic tx Follow up in about 6 days (around 09/06/2024) for 40 min preop. Subjective HPI Pt presents for pre-op clearance for R total knee with Dr. Allen at [facility] on 09/17/24 Pre-op testing was completed on 08/24/24 Pt denies CP, SOB, ankle swelling, or orthopnea. Has dyspnea on exertion, at baseline Hx of smoking, quit [address] No pharmacologic tx No asthma Denies DENNIS. Pt has had prior surgeries under anesthesia. Denies any complications. Denies hx of DVT/PE Not currently on any NSAIDs or anti-coagulants. Swapnil's Simple Cardiac RiskIndex: High-risk surgery (intraperitoneal, intrathoracic or suprainguinalvascular surgery): no Coronary artery disease: no Congestive heart failure: no History ofcerebrovascular disease: no Insulin treatment for diabetes mellitus: no Preoperative serumcreatinine > 2.0mg/dL: no Total: 0 Interpretation: 0Points Class I 1 Point Class II 2 Points Class III >=3 Points Class IV Class: 1 BP Readings from Last 3 Encounters: 08/31/24 (!) 142/92 11/13/23 126/84 10/16/23 126/80 Wt Readings from Last 3 Encounters: 08/31/24 173 lb 11.2 oz (78.8 kg) 02/06/24 190 lb (86.2 kg) 11/13/23 198 lb 3 oz (89.9 kg) Lab Results Component Value Date WBC 7.5 09/27/2023 HGB 14.3 09/27/2023 HCT 43.0 09/27/2023 MCV 85.5 09/27/2023 PLT 304 09/27/2023 Lab Results Component Value Date NA 136 09/27/2023 K 4.1 09/27/2023 CL 104 09/27/2023 CO2 28 09/27/2023 BUN 12 09/27/2023 CREATININE 0.64 09/27/2023 CREATININE 0.56 12/27/2019 GLUCOSE 89 09/27/2023 CALCIUM 9.1 09/27/2023 Lab Results Component Value Date CHLPL 186 12/19/2020 CHLPL 186 09/29/2020 CHOL 182 09/27/2023 CHOL 184 08/21/2022 Lab Results Component Value Date TRIG 70 09/27/2023 TRIG 62 08/21/2022 TRIG 74 12/19/2020 Lab Results Component Value Date HDL 57 09/27/2023 HDL 57 08/21/2022 HDL 59 12/19/2020 Lab Results Component Value Date LDLCALC 111 (H) 09/27/2023 LDLCALC 115 (H) 08/21/2022 LDLCALC 112 12/19/2020 Lab Results Component Value Date VLDL 15 12/19/2020 VLDL 15 09/29/2020 Lab Results Component Value Date CHOLHDLRATIO 3 09/27/2023 CHOLHDLRATIO 3 08/21/2022 THYROID STIMULATING HORMONE Date Value Ref Range Status 11/09/2023 1.046 0.465 - 4.680 uIU/mL Final Currently on levothyroxine 88mcg daily Reports BP has been high since Mar 130-150's/80's-90's Review of Systems Constitutional: Negative for activity change and fatigue. Respiratory: Negative for cough and shortness of breath. Cardiovascular: Negative for chest pain. Gastrointestinal: Negative for abdominal pain, nausea and vomiting. Musculoskeletal: Positive for arthralgias and gait problem. Neurological: Negative for dizziness and headaches. Allergies Allergen Reactions Cefadroxil Swelling Outpatient Medications Prior to Visit Medication Sig Dispense Refill cholecalciferol (Vitamin D3) 25 MCG (1000 UT) tablet cyanocobalamin (Vitamin B-12) 100 MCG tablet levothyroxine (Synthroid, Levoxyl) 88 MCG tablet TAKE 1 TABLET BY MOUTH EVERY DAY 90 tablet 3 omega-3 (Fish Oil) 1200 MG capsule thiamine (,Vitamin B-1,) 100 MG tablet Wegovy 2.4 MG/0.75ML solution auto-injector Inject 2.4 mg under the skin every 7 days. Collagen-Vitamin C-Biotin (Collagen 1500/C) 500-50-0.8 MG capsule Tirzepatide-Weight Management (Zepbound) 5 MG/0.5ML solution auto-injector Inject 5 mg under the skin every 7 days. Do not start before December 21, 2023. 6 mL 0 No facility-administered medications prior to visit. Past Medical History: Diagnosis Date Goiter Personal history of tobacco use Pure hypercholesterolemia Not in statin benefit group Thyroid nodule 2007 Social History Tobacco Use Smoking status: Former Current packs/day: 0.00 Average packs/day (more content not included)... Normal [facility] 12 Lead EKGon 08-24-2024 12 Lead EKG [facility] Cardiovascular Services [address] [place] [address] 12 Lead EKG 08/24/24 0842 MR#: [id number] Acct: [id number] Name: ISIS ULRICH Rep #: [id number] : 1960 64 From: Rashid Walters MD Attending Dr: Dr. Mele Allen MD Status: REG CLI Ordering Dr: Mele Allen MD Date: 08/24/24 Location: [facility] Sex: F C Admitted: Test Reason : PRE OP Blood Pressure : */* mmHG Vent. Rate : 71 BPM Atrial Rate : 71 BPM P-R Int : 168 ms QRS Dur : 76 ms QT Int : 404 ms P-R-T Axes : 67 91 86 degrees QTcB Int : 439 ms Normal sinus rhythm Normal ECG Confirmed by Rashid Walters ([id number]), television news video editor TY WILLIAMSON ([id number]) on 08/25/2024 6:54:44 AM Referred By: Mele Aleln Confirmed By: Rashid Walters 08/25/24 0654 Date Rashid Walters MD CC: Dr. Mele Allen MD; REBECA SILVA Signed Normal [facility] Absolute lymphocyte countOrd ered By: Mele Allen on 08-24-2024 Lymphocytes Auto (Unsp spec) [#/Vol] 2.38 10*3/uL 0.83-4.51 [facility] Absolute neutrophil countOrd ered By: Mele Allen on 08-24-2024 Neutrophils (Bld) [#/Vol] 4.6 10*3/uL 2.0-7.7 [facility] Albumin, Serumon 08-24-2024 Albumin [Mass/Vol] 3.8 g/dL Normal 3.2-5.0 [facility] Comment on above: Performed By: #### L 500.2500, L501.1800, L100.0100 #### [facility] [address] [place], [address] Automated lymphocyte count a s percentage of total leukocytesOrdered By: Mele Allen on 08-24-2024 Lymphocytes/100 WBC Auto (Unsp spec) 30.4 % 19-41 [facility] Basic Metabolic Profile (BMP )on 08-24-2024 BUN/CRE 24.4 RATIO High 10-20 [facility] Comment on above: Performed By: #### L 500.2500, L501.1800, L100.0100 #### [facility] [address] [place], [address] CA,Total 8.5 mg/dL Normal 8.5-10.1 [facility] Comment on above: Performed By: #### L 500.2500, L501.1800, L100.0100 #### [facility] [address] [place], [address] Chloride [Moles/Vol] 105 mmol/L Normal 98-107 [facility] Comment on above: Performed By: #### L 500.2500, L501.1800, L100.0100 #### [facility] [address] [place], [address] CO2 [Moles/Vol] 27.0 mmol/L Normal 21.0-32.0 [facility] Comment on above: Performed By: #### L 500.2500, L501.1800, L100.0100 #### [facility] [address] [place], [address] Creatinine [Mass/Vol] 0.61 mg/dL Normal 0.55-1.02 [facility] Comment on above: Result Comment: The validity of the calculated GFR GFRAA in patients over 70 years has not been determined. Clinical correlation is essential. Performed By: #### L 500.2500, L501.1800, L100.0100 #### [facility] [address] [place], [address] EST GFR - AA 127 mL/min Normal >60 [facility] Comment on above: Result Comment: Afri can Swiss GFR Calc Performed By: #### L 500.2500, L501.1800, L100.0100 #### [facility] [address] [place], [address] GAP 8 Normal 5-15 [facility] Comment on above: Performed By: #### L 500.2500, L501.1800, L100.0100 #### [facility] [address] [place], [address] GFR/1.73 sq M.predicted among non-blacks MDRD (S/P/Bld) [Vol rate/Area] 105 mL/min/{1.73_m2} Normal >60 [facility] Comment on above: Result Comment: Non- GFR Calc Performed By: #### L 500.2500, L501.1800, L100.0100 #### [facility] [address] [place], [address] Glucose [Mass/Vol] 90 mg/dL Normal 74-106 [facility] Comment on above: Performed By: #### L 500.2500, L501.1800, L100.0100 #### [facility] [address] [place], [address] Potassium [Moles/Vol] 3.9 mmol/L Normal 3.5-5.1 [facility] Comment on above: Performed By: #### L 500.2500, L501.1800, L100.0100 #### [facility] [address] [place], [address] Sodium [Moles/Vol] 140 mmol/L Normal 136-145 [facility] Comment on above: Performed By: #### L 500.2500, L501.1800, L100.0100 #### [facility] [address] [place], [address] Urea nitrogen [Mass/Vol] 15 mg/dL Normal 7-18 [facility] Comment on above: Performed By: #### L 500.2500, L501.1800, L100.0100 #### [facility] [address] [place], [address] Basophil percentageOrdered B y: Mele Allen on 08-24-2024 Basophils/100 WBC (Bld) 0.6 % 0-1 [facility] Blood urea nitrogen (BUN)/cr eatinine ratioOrdered By: Mele Allen on 08-24-2024 Urea nitrogen/Creatinine [Mass ratio] 24.4 mg/mg High 10-20 [facility] CBC W/Diff, Automatedon 08-14 Absolute Lymph 2.38 X10 3/uL Normal 0.83-4.51 [facility] Comment on above: Performed By: #### L 500.2500, L501.1800, L100.0100 #### [facility] [address] [place], [address] Absolute Neut 4.6 X10 3/uL Normal 2.0-7.7 [facility] Comment on above: Performed By: #### L 500.2500, L501.1800, L100.0100 #### [facility] [address] [place], [address] Basophils/100 WBC (Bld) 0.6 % Normal 0-1 [facility] Comment on above: Performed By: #### L 500.2500, L501.1800, L100.0100 #### [facility] [address] [place], [address] Eosinophils/100 WBC (Bld) 3.2 % Normal 0-5 [facility] Comment on above: Performed By: #### L 500.2500, L501.1800, L100.0100 #### [facility] [address] [place], [address] Erythrocyte distribution width (RBC) [Ratio] 12.6 % Normal 11.6-14.6 [facility] Comment on above: Performed By: #### L 500.2500, L501.1800, L100.0100 #### [facility] [address] [place], [address] Hematocrit (Bld) [Volume fraction] 43.6 % Normal 37-47 [facility] Comment on above: Performed By: #### L 500.2500, L501.1800, L100.0100 #### [facility] [address] [place], [address] Hemoglobin (Bld) [Mass/Vol] 14.0 g/dL Normal 12.0-15.0 [facility] Comment on above: Performed By: #### L 500.2500, L501.1800, L100.0100 #### [facility] [address] [place], [address] IG% 0.400 Normal 0.0-0.9 [facility] Comment on above: Result Comment: IG% - Immature Granulocytes (promyelocytes, myelocytes and metamyelocytes) > 1% indicates that a LEFT SHIFT is Present. Performed By: #### L 500.2500, L501.1800, L100.0100 #### [facility] [address] [place], [address] Lymphocytes/100 WBC (Bld) 30.4 % Normal 19-41 [facility] Comment on above: Performed By: #### L 500.2500, L501.1800, L100.0100 #### [facility] [address] [place], [address] MCH (RBC) [Entitic mass] 27.3 pg Normal 27.0-32.0 [facility] Comment on above: Performed By: #### L 500.2500, L501.1800, L100.0100 #### [facility] [address] [place], [address] MCHC (RBC) [Mass/Vol] 32.1 g/dL Normal 32-36 [facility] Comment on above: Performed By: #### L 500.2500, L501.1800, L100.0100 #### [facility] [address] [place], [address] MCV (RBC) [Entitic vol] 85.0 fL Normal 81-99 [facility] Comment on above: Performed By: #### L 500.2500, L501.1800, L100.0100 #### [facility] [address] [place], [address] Monocytes/100 WBC (Bld) 6.8 % Normal 0-10 [facility] Comment on above: Performed By: #### L 500.2500, L501.1800, L100.0100 #### [facility] [address] [place], [address] Neutrophils/100 WBC (Bld) 58.6 % Normal 47-70 [facility] Comment on above: Performed By: #### L 500.2500, L501.1800, L100.0100 #### [facility] [address] [place], [address] Nucleated RBC (Bld) [#/Vol] 0 10*3/uL Normal 0-5 [facility] Comment on above: Performed By: #### L 500.2500, L501.1800, L100.0100 #### [facility] [address] [place], [address] Platelet mean volume (Bld) [Entitic vol] 10.2 fL Normal 6.2-12.0 [facility] Comment on above: Performed By: #### L 500.2500, L501.1800, L100.0100 #### [facility] [address] [place], [address] Platelets (Bld) [#/Vol] 361 10*3/uL Normal 150-450 [facility] Comment on above: Performed By: #### L 500.2500, L501.1800, L100.0100 #### [facility] [address] [place], [address] RBC (Bld) [#/Vol] 5.13 10*6/uL Normal 4.2-5.4 [facility] Comment on above: Performed By: #### L 500.2500, L501.1800, L100.0100 #### [facility] [address] [place], [address] RDW SD 38.8 fl Normal 35.1-43.9 [facility] Comment on above: Performed By: #### L 500.2500, L501.1800, L100.0100 #### [facility] [address] [place], [address] WBC (Bld) [#/Vol] 7.8 10*3/uL Normal 4.4-11.0 [facility] Comment on above: Performed By: #### L 500.2500, L501.1800, L100.0100 #### [facility] [address] [place], [address] Carbon dioxide measurementOr dered By: Mele Allen on 08-24-2024 CO2 [Moles/Vol] 27.0 mmol/L 21.0-32.0 [facility] Chest PA and Lateralon 08-24 Chest PA and Lateral [facility] Imaging Services [address] [place] [address] Chest PA and Lateral MR#: [id number] Acct: [id number] Name: ISIS ULRICH Rep #: [id number] : 1960 F 64 From: Nakia Heath MD PCP: Status: REG CLI Study: Chest PA and Lateral Date of Exam: 08/24/24 Exam# [id number] Ordering Dr: Mele Allen MD EXAM: XR Chest, 2 Views CLINICAL INDICATION: TECHNIQUE: Frontal and lateral views of the chest. COMPARISON: No relevant prior studies available. FINDINGS: LUNGS AND PLEURAL SPACES: Unremarkable. No consolidation. No pneumothorax. HEART: Unremarkable. No cardiomegaly. MEDIASTINUM: Unremarkable. Normal mediastinal contour. BONES/JOINTS: Unremarkable. No acute fracture. RAD/Chest PA and Lateral IMPRESSION: No acute cardiopulmonary process. Reading Location: [facility] CC: Dr. Mele Allen MD; REBECA SILVA Associate Media Director: Signed Normal [facility] Chloride measurementOrdered By: Mele Allen on 08-24-2024 Chloride [Moles/Vol] 105 mmol/L 98-107 [facility] Eosinophil percentageOrdered By: Mele Allen on 08-24-2024 Eosinophils/100 WBC (Bld) 3.2 % 0-5 [facility] Erythrocyte distribution wid th ratioOrdered By: Mele Allen on 08-24-2024 Erythrocyte distribution width (RBC) [Ratio] 12.6 % 11.6-14.6 [facility] Erythrocyte distribution wid th standard deviationOrdered By: Mele Allen on 08-24-2024 Erythrocyte distribution width (RBC) [Entitic vol] 38.8 fL 35.1-43.9 [facility] Erythrocyte distribution width (RBC) [Ratio] 38.8 fl 35.1-43.9 [facility] Estimated glomerular filtrat ion rate (GFR) AmericanOrdered By: Mele Allen on 08-24-2024 Estimated GFR (MDRD) Amer 127 mL/min >60 [facility] Comment on above: GFR Calc Glomerular filtration rate ( GFR) estimationOrdered By: Mele Allen on 08-24-2024 Estimated GFR (MDRD) Non-Af Amer 105 mL/min >60 [facility] Comment on above: Non- GFR Calc GFR/1.73 sq M.predicted among non-blacks MDRD (S/P/Bld) [Vol rate/Area] 105 mL/min/{1.73_m2} >60 [facility] Comment on above: Non- GFR Calc Glucose measurementOrdered B y: Mele Allen on 08-24-2024 Glucose [Mass/Vol] 90 mg/dL 74-106 [facility] Hematocrit Auto (Bld) [Volum e fraction]Ordered By: Mele Allen on 08-24-2024 Hematocrit (Bld) [Volume fraction] 43.6 % 37-47 [facility] Hemoglobin measurementOrdere d By: Mele Allen on 08-24-2024 Hemoglobin (Bld) [Mass/Vol] 14.0 g/dL 12.0-15.0 [facility] Immature granulocytes/100 WB C Auto (Bld)Ordered By: Mele Allen on 08-24-2024 Immature granulocytes/100 WBC (Bld) 0.400 % 0.0-0.9 [facility] Comment on above: IG% - Immature Granu locytes (promyelocytes, myelocytes and metamyelocytes) > 1% indicates that a LEFT SHIFT is Present. Lymphocytes Auto (Unsp spec) [#/Vol]Ordered By: Mele Allen on 08-24-2024 Lymphocytes (Bld) [#/Vol] 2.38 10*3/uL 0.83-4.51 [facility] Lymphocytes/100 WBC Auto (Un sp spec)Ordered By: Mele Allen on 08-24-2024 Lymphocytes/100 WBC (Bld) 30.4 % 19-41 [facility] MCV (mean corpuscular volume ) determinationOrdered By: Mele Allen on 08-24-2024 MCV (RBC) [Entitic vol] 85.0 fL 81-99 [facility] Mean corpuscular hemoglobin (MCH) determinationOrdered By: Mele Allen on 08-24-2024 MCH (RBC) [Entitic mass] 27.3 pg 27.0-32.0 [facility] Mean corpuscular hemoglobin concentration (MCHC) determinationOrdered By: Mele Allen on 08-24-2024 MCHC (RBC) [Mass/Vol] 32.1 g/dL 32-36 [facility] Mean platelet volume determi nationOrdered By: Mele Allen on 08-24-2024 Platelet mean volume (Bld) [Entitic vol] 10.2 fL 6.2-12.0 [facility] Monocyte percentageOrdered B y: Mele Allen on 08-24-2024 Monocytes/100 WBC (Bld) 6.8 % 0-10 [facility] Neutrophil percentageOrdered By: Mele Allen on 08-24-2024 Neutrophils/100 WBC (Bld) 58.6 % 47-70 [facility] Nucleated red blood cell per centageOrdered By: Mele Allen on 08-24-2024 Nucleated RBC/100 WBC (Bld) [Ratio] 0 % 0-5 [facility] Platelet countOrdered By: No Allen on 08-24-2024 Platelets (Bld) [#/Vol] 361 10*3/uL 150-450 [facility] Potassium measurementOrdered By: Mele Allen on 08-24-2024 Potassium [Moles/Vol] 3.9 mmol/L 3.5-5.1 [facility] RBC Auto (Bld) [#/Vol]Ordere d By: Mele Allen on 08-24-2024 RBC (Bld) [#/Vol] 5.13 10*6/uL 4.2-5.4 [facility] Serum anion gap measurementO rdered By: Mele Allen on 08-24-2024 Anion gap [Moles/Vol] 8 mmol/L 5-15 [facility] Serum or plasma albumin yaneli urement (mass/volume)Ordered By: Mele Allen on 08-24-2024 Albumin [Mass/Vol] 3.8 g/dL 3.2-5.0 [facility] Serum or plasma calcium yaneli urement (mass/volume)Ordered By: Mele Allen on 08-24-2024 Calcium [Mass/Vol] 8.5 mg/dL 8.5-10.1 [facility] Serum or plasma creatinine m easurement (mass/volume)Ordered By: Mele Allen on 08-24-2024 Creatinine [Mass/Vol] 0.61 mg/dL 0.55-1.02 [facility] Comment on above: The validity of the calculated GFR & GFRAA in patients over 70 years has not been determined. Clinical correlation is essential. Serum or plasma urea nitroge n measurement (mass/volume)Ordered By: Mele Allen on 08-24-2024 Urea nitrogen [Mass/Vol] 15 mg/dL 7-18 [facility] Sodium levelOrdered By: Rupert Allen on 08-24-2024 Sodium [Moles/Vol] 140 mmol/L 136-145 [facility] White blood cell (WBC) count Ordered By: Mele Allen on 08-24-2024 WBC (Bld) [#/Vol] 7.8 10*3/uL 4.4-11.0 [facility] 36on 08-19-2024 36 She is scheduled wit heide black on 08/31 for preop clearance. If concerns recommend that appointment be moved up Normal [facility] - Microbiology an d Antimicrobial susceptibilityOrdered By: Tian South on 08-13-2024 SARS-CoV-2 (COVID-19) RNA ANABELLE+probe Ql (Unsp spec) Not detected [facility] No Panel InformationOrdered By: Tian South on 08-13-2024 Influenza Types A,B Rapid (Clinic) Detected [facility] Urgent Care Visit Reporton 0 08-13-2024 Urgent Care Visit Report [facility] [address], [address] [place] [address] OFFICE VISIT Date of Service: 08/13/24 MR#: [id number] Acct: [id number] Name: ISIS ULRICH Rep #: [id number] : 1960 Provider: DIVYA Zuniga Age/Sex: 64/F Location: [facility] Status: Signed Intake Vital Signs 04/15/23 09:26 08/13/24 14:31 Height 5 ft 3 in BP 146/90 H Blood Pressure Location Lt brachial Position Sitting Respiration 15 Pulse 74 Pulse Source NIBP Temp 98.5 F Temp Source Oral Pulse Oximetry (%) 97 Oxygen Delivery Method room air Intake Visit Reasons: CONCERN FOR SINUS INFECTION Chief Complaint: SORENSEN, BA, ST, cough, weak Car Sales Associate Required: No Is patient in pain?: No Allergies No Known Allergies Allergy (Verified 08/13/24 14:32) Is last menstrual period known: No Post menopausal: Yes Patient : No Have you fallen in the past year?: No Nurse's Note: SORENSEN, BA, ST, cough, weak x 5 days. feels her face is swollen, google informed pt this is likely sinusitis, concern for same. [facility] Medical History (Updated 08/13/24 @ 15:27 by Tian STOKES, PA) URI (upper respiratory infection) Thoracic myofascial strain Knee pain Surgical History Hx of section History of thyroid surgery History of knee surgery Family History Mother Diabetes CVD (cardiovascular disease) Social History Smoking Status: Never smoker alcohol intake: never HPI HPI Chief Complaint: SORENSEN, BA, ST, cough, weak Details: ISIS ULRICH, is a 64 F who presents to the office today for complaint of headache, bodyaches, sore throat and congestion as well as weakness for the past 5 days. Patient denies known fever. No hemoptysis, shortness of breath or difficulty breathing. No loss of taste or smell. No nausea, vomiting or diarrhea. No other associated symptoms or alleviating/aggravating factors. ROS Const Constitutional: No other (As above) Exam Const General: cooperative and healthy appearing HENMT Head: normal to inspection Ears: hearing grossly normal bilaterally, TM's normal bilaterally and EAC's normal Nose: nasal discharge purulent Face and sinus: sinus tenderness frontal and maxillary Mouth: oral mucosae normal Throat: abnormal tonsil bilaterally erythema and hypertrophy 1+ and postnasal drainage Resp Effort Inspection: normal respiratory effort Auscultation: Bilateral: Clear to Auscultation Cardio Rate: regular rate Rhythm: regular rhythm Neuro General: patient alert and CN's II-XI intact bilaterally Psych Appearance: grossly normal Mental Status: mental status grossly normal Results POC HELLEN Covid FluAB PCR POC Hellen Covid PCR Not Detected Last Edit by Jodi Yuan on 08/13/24 14:59 POC HELLEN FLU ONLY FLU A DETECTED Last Edit by Jodi Yuan on 08/13/24 14:59 Coding Level of Care Code Off vis,new,level 3 Diagnoses Contact with or suspected exposure to other viral communicable disease Z20.828 Influenza due to influenza virus, type A, human J10.1 Assessment and Plan Assessment and Plan (1) Contact with or suspected exposure to other viral communicable disease: Status: Acute (2) Influenza due to influenza virus, type A, human: Status: Acute Orders: Orders POC Hellen Covid FLUAB PCR Today Medications: New oseltamivir (Tamiflu) 75 mg PO Q12H 5 days 10 caps 0RF Plan Patient tested positive for influenza A in the office today. Tamiflu as prescribed today. Encouraged to get plenty of rest, drink lots of clear liquids, and use Tylenol or Ibuprofen (unless contraindicated) for fever and comfort. Patient also educated on other symptomatic management techniques. To be seen in 7-10 days if no improvement; sooner if worsening of symptoms. Patient advised of potential red flags and when appropriate to report to the ED. Patient verbalized understanding and agreement with all the above. Clinical Quality Measures Falls Risk Screening/Assistive Devices Have you fallen in the past year?: No 08/13/24 1527 Date Tian Saleh Signature: Date (if applicable) CC: [facility] 36 07-22-2024 36 Name of caller: Meagan jaeger Contact phone number: [phone] Relationship to Patient: [facility] Provider: Dr. Silva Practice: [facility] Chief Complaint/Reason for Call: Denise informing she will be faxing over patients surgical clearance forms for her 09/17/24 procedure. Patient has appointment scheduled 08/31/24. Best time of day caller can be reached: any Patient advised that office/PCP has 24-48 business hours to return their call: N/A [facility] Extremity Lower without Cont raon 07-21-2024 Extremity Lower without Contra [facility] Imaging Services [address] [place] [address] Extremity Lower without Contra MR#: [id number] Acct: [id number] Name: ISSI ULRICH Rep #: [id number] : 1960 F 64 From: Graham Anderson MD PCP: REBECA SILVA Status: REG CLI Study: Extremity Lower without Contra Date of Exam: 0 07/21/24 Exam# [id number] Ordering Dr: [place] [id number] EXAM: CT RIGHT LOWER EXTREMITY WITHOUT INTRAVENOUS CONTRAST CLINICAL INDICATION: PRE OP WASC/OSTEO TECHNIQUE: Helically acquired images were obtained of the right lower extremity without intravenous contrast. 2-D reformats were performed by the technologist. CTDIvol = ( 18.74 ) mGy, DLP = ( 1322.73 ) mGycm This CT exam was performed using one or more of the following dose reduction techniques: automated exposure control, adjustment of the mA and/or kV according to patient size, and/or use of iterative reconstruction technique. COMPARISON: No relevant prior studies available. FINDINGS: BONES/JOINTS: Calcaneal enthesopathy. Bone along the medial malleolus. Knee shows tricompartmental osteoarthrosis, moderate to severe. Mild degenerative joint space narrowing at the right hip joint. Mild enthesopathy involving the right greater trochanter. No acute or healing fracture or malalignment. SOFT TISSUES: Unremarkable. No soft tissue swelling or gas. No radiopaque foreign body. No soft tissue masses or fluid collections. OTHER FINDINGS: Distal colonic diverticulosis but no acute diverticulitis. No free fluid in the pelvis. CT/Extremity Lower without Contra IMPRESSION: 1. Tpemcsht-mu-uanadh tricompartmental osteoarthrosis of the knee. 2. Study was performed for preoperative planning purposes. Electronically Signed: Graham Anderson MD at 19:05 EST Reading Location ID and State: [address] [place] [address] Tel , Service support , CC: Dr. Mele Allen MD; REBECA SILVA Associate Media Director: Signed Normal [facility] DBT Breast - bilateral scree daniel 02-06-2024 No mammographic evidence of malignancy. ASSESSMENT: Category 1 Negative RECOMMENDATION: Routine screening mammogram in 1 year. Bilateral CANCER RISK ASSESSMENT: This risk assessment is based on patient provided information collected in a risk survey taken at the time of this examination. LIFETIME BREAST CANCER RISK: Paco 8: 5.15% - If greater than or equal to 20%, consider annual mammogram and annual screening Breast MRI or follow up in high risk clinic. Is the patient at elevated risk based on the HBOC criteria? No (Hereditary Breast and Ovarian Cancer) - If Yes, consider genetic counseling and testing with high risk follow up Is the patient at elevated risk based on the Don Syndrome criteria? No - If Yes, consider genetic counseling and testing with high risk follow up. Report Dictated on Electronically Signed By: Fani Alvarado MD Electronically Signed Date/Time: 02/06/2024 3:26 PM EDT [facility] Patient Name: ISIS VELA : 1960 Exam Date/Time: 02/06/2024 14:49 Procedure: BI MAMMOGRAM SCREENING TOMOSYNTHESIS BILATERAL Ordering Provider: SILVA NAOMI Reason For Exam: PATIENT CANCER HISTORY: No Personal History of Cancer FAMILY CANCER HISTORY: No Family History of Cancer Image views: 2D Bilateral CC and MLO views were acquired. 3D Bilateral CC and MLO views were acquired. Images were reviewed with CAD. Markings on images: BB's = Nipples; skin lesions Open [place] = Palpable Line = Scar COMPARISON: 12/03/2022 and 10/30/2021 TISSUE DENSITY: BIRADS B - There are scattered fibroglandular densities. FINDINGS: No suspicious masses, architectural distortions or suspiciously clustered microcalcifications are identified. There is no evidence of skin thickening or nipple retraction. There are no significant changes when compared with prior studies. [facility] Fani Alvarado MD - 02/06/2024 Patient Name: ISIS ULRICH : 1960 Exam Date/Time: 02/06/2024 14:49 Procedure: BI MAMMOGRAM SCREENING TOMOSYNTHESIS BILATERAL Ordering Provider: SILVA NAOMI Reason For Exam: PATIENT CANCER HISTORY: No Personal History of Cancer FAMILY CANCER HISTORY: No Family History of Cancer Image views: 2D Bilateral CC and MLO views were acquired. 3D Bilateral CC and MLO views were acquired. Images were reviewed with CAD. Markings on images: BB's = Nipples; skin lesions Open [place] = Palpable Line = Scar COMPARISON: 12/03/2022 and 10/30/2021 TISSUE DENSITY: BIRADS B - There are scattered fibroglandular densities. FINDINGS: No suspicious masses, architectural distortions or suspiciously clustered microcalcifications are identified. There is no evidence of skin thickening or nipple retraction. There are no significant changes when compared with prior studies. IMPRESSION: No mammographic evidence of malignancy. ASSESSMENT: Category 1 Negative RECOMMENDATION: Routine screening mammogram in 1 year. Bilateral CANCER RISK ASSESSMENT: This risk assessment is based on patient provided information collected in a risk survey taken at the time of this examination. LIFETIME BREAST CANCER RISK: Paco 8: 5.15% - If greater than or equal to 20%, consider annual mammogram and annual screening Breast MRI or follow up in high risk clinic. Is the patient at elevated risk based on the HBOC criteria? No (Hereditary Breast and Ovarian Cancer) - If Yes, consider genetic counseling and testing with high risk follow up Is the patient at elevated risk based on the Don Syndrome criteria? No - If Yes, consider genetic counseling and testing with high risk follow up. Report Dictated on Electronically Signed By: Fani Alvarado MD Electronically Signed Date/Time: 02/06/2024 3:26 PM EDT [facility] [employer] Radiology Study observation (narrative) [facility] DBT Breast - bilateral scree ningOrdered By: Fani Alvarado on 02-06-2024 [employer] Work Phone: CBC W Auto Differential pane l (Bld)Ordered By: Belle Wright on 09-27-2023 Basophils (Bld) [#/Vol] 0.1 10*3/uL 0.0 - 0.2 10*3/uL [employer] Basophils/100 WBC (Bld) 0.7 % 0.0 - 2.0 % [facility] [employer] Eosinophils (Bld) [#/Vol] 0.3 10*3/uL 0.0 - 0.5 10*3/uL [facility] [employer] Eosinophils/100 WBC (Bld) 3.3 % 0.0 - 6.0 % [employer] Erythrocyte distribution width (RBC) [Ratio] 13.2 % 11.5 - 15.0 % [employer] Hematocrit (Bld) [Volume fraction] 43.0 % 35.0 - 47.0 % [facility] Hemoglobin (Bld) [Mass/Vol] 14.3 g/dL 11.7 - 16.0 g/dL [facility] Immature granulocytes (Bld) [#/Vol] 0.0 10*3/uL NINF - 0.1 10*3/uL [facility] Immature granulocytes/100 WBC (Bld) 0.3 % 0.0 - 2.0 % [facility] Interpretation and review of laboratory results Normal [facility] Lymphocytes (Bld) [#/Vol] 2.3 10*3/uL 1.0 - 4.3 10*3/uL [facility] Lymphocytes/100 WBC (Bld) 30.8 % 15.0 - 45.0 % [facility] MCH (RBC) [Entitic mass] 28.4 pg 26. 0 - 34.0 pg [facility] MCHC (RBC) [Mass/Vol] 33.3 % 30.5 - 36.0 % [facility] MCV (RBC) [Entitic vol] 85.5 fL 77.0 - 99.0 fL [facility] Monocytes (Bld) [#/Vol] 0.6 10*3/uL 0.0 - 0.9 10*3/uL [facility] Monocytes/100 WBC (Bld) 7.6 % 5.0 - 13.0 % [facility] Neutrophils (Bld) [#/Vol] 4.3 10*3/uL 1.8 - 7.5 10*3/uL [facility] Neutrophils/100 WBC (Bld) 57.3 % 38.0 - 82.0 % [facility] Nucleated RBC/100 WBC (Bld) [Ratio] 0.0 % [facility] Platelet mean volume (Bld) [Entitic vol] 10.2 fL 9.0 - 12.7 fL [facility] Comment on above: MPV is a calculated measurement using platelet volume ratio Platelets (Bld) [#/Vol] 304 10*3/uL 140 - 440 10*3/uL [facility] RBC (Bld) [#/Vol] 5.03 10*6/uL 3.80 - 5.2 0 10*6/uL [facility] WBC (Bld) [#/Vol] 7.5 10*3/uL 3.6 - 10.7 10*3/uL [facility] Comprehensive metabolic 1998 panelon 09-27-2023 Albumin [Mass/Vol] 4.3 g/dL 3.5 - 5.0 g/dL [facility] ALP [Catalytic activity/Vol] 75 U/L 38 - 126 U/L [facility] ALT [Catalytic activity/Vol] 24 U/L 0 - 34 U/L [facility] Anion gap [Moles/Vol] 4 mmol/L 3 - 13 mmol/L [facility] AST [Catalytic activity/Vol] 25 U/L 15 - 46 U/L [facility] Bilirubin [Mass/Vol] 0.6 mg/dL 0.2 - 1 .3 mg/dL [facility] Calcium [Mass/Vol] 9.1 mg/dL 8.4 - 10. 4 mg/dL [facility] Chloride [Moles/Vol] 104 mmol/L 98 - 10 7 mmol/L [facility] CO2 [Moles/Vol] 28 mmol/L 22 - 30 mmol/L [facility] Creatinine [Mass/Vol] 0.64 mg/dL 0.52 - 1.04 mg/dL [facility] GFR/1.73 sq M.predicted MDRD (S/P/Bld) [Vol rate/Area] - PINF [facility] Comment on above: Calculation based on the Chronic Kidney Disease Epidemiology Collaboration (CKD-EPI) equation refit without adjustment for race Glucose [Mass/Vol] 89 mg/dL 70 - 100 mg/dL [facility] Interpretation and review of laboratory results Normal [facility] Potassium [Moles/Vol] 4.1 mmol/L 3.5 - 5.1 mmol/L [facility] Protein [Mass/Vol] 7.1 g/dL 6.3 - 8.2 g/dL [facility] Sodium [Moles/Vol] 136 mmol/L 135 - 145 mmol/L [facility] Urea nitrogen [Mass/Vol] 12 mg/dL 7 - 17 mg/dL [facility] Noninvasive colorectal cance r DNA and occult blood screening Lobo (Stl) [Interp]on 08-29-2023 Noninvasive colorectal cancer DNA and occult blood screening Ql (Stl) Negative Negative [facility] Comment on above: NEGATIVE TEST RESULT. A negative Cologuard result indicates a low likelihood that a colorectal cancer (CRC) or advanced adenoma (adenomatous polyps with more advanced pre-malignant features) is present. The chance that a person with a negative Cologuard test has a colorectal cancer is less than 1 in 1500 (negative predictive value >99.9%) or has an advanced adenoma is less than 5.3% (negative predictive value 94.7%). These data are based on a prospective cross-sectional study of 10,000 individuals at average risk for colorectal cancer who were screened with both Cologuard and colonoscopy. (Nadja Lopes et al, N Engl J Med 2014;370(14):2914-4332) The normal value (reference range) for this assay is negative. COLOGUARD RE-SCREENING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 09-27-2023 Comprehensive metabo lic panel Rebeca Silva MD Work Phone: Start: 09-27-2023 Lipid 1996 panel - S lucila or Plasma Rebeca Silva MD Work Phone: Start: 08-17-2023 Noninvasive colorect al cancer DNA and occult blood screening Lobo (Stl) [Interp] Rebeca Silva MD Work Phone: Start: 12-03-2022 Mammography Rebeca miller MD Work Phone: Start: 10-07-2022 Adult depression scr eening assessment Rebeca Silva MD Work Phone: Start: 08-26-2022 Ecg routine ecg w/le ast 12 lds trcg only w/o i&r Virgil Castellanos MD Work Phone: Start: 08-21-2022 Lipid 1996 panel - S lucila or Plasma Rebeca Silva MD Work Phone: Start: 08-21-2022 Thyrotropin [Units/v olume] in Serum or Plasma Robbi Cook MD Work Phone: Start: 10-30-2021 End: 10-30-2021 Screening mammography Start: 12-04-2020 Mammography Liliana kathleen CERTIFIED NURSING ATTENDANT - TEACHER EDUCATION DIRECTOR Work Phone: Start: 10-03-2020 Microscopic observat ion [Identifier] in Cervix by Cyto stain Rebeca Silva MD Work Phone: Start: 12-27-2019 Basic metabolic pane l calcium total [facility] Work Phone: Start: 12-27-2019 Blood count complete auto&auto difrntl wbc [facility] Work Phone: Start: 12-27-2019 Radex forearm 2 views M ark Jesus Bunch Work Phone: Start: 12-27-2019 Radex ribs uni w/pos teroant ch minimum 3 views Nakia Bunch Work Phone: Start: 12-27-2019 Radiologic examinati on knee 3 views Nakia Bunch Work Phone: Start: 12-27-2019 LACERATION REPAIR [facility] Work Phone: Plan of Treatment Date Care Activity Detail Author Start: 12-26-2029 DTaP/Tdap/Td vaccine (2 - Td) DTaP/Tdap/Td vaccine (2 - Td) [place] Start: 12-26-2029 DTaP/Tdap/Td Vaccines (2 - Td or Tdap) DTaP/Tdap/Td Vaccines (2 - Td or Tdap) [facility] Start: 12-26-2029 DTaP/Tdap/Td Vaccines (3 - Td or Tdap) DTaP/Tdap/Td Vaccines (3 - Td or Tdap) [facility] Start: 09-04-2029 Lipid panel Lipid Panel [facility] Start: 11-12-2028 Screening for malignant neoplasm of cervix [facility] Start: 09-26-2028 Lipid panel Lipid Panel [facility] Start: 08-21-2027 Lipid panel Lipid Panel [facility] Start: 11-12-2026 Screening for malignant neoplasm of cervix Pap Smear [facility] Start: 08-17-2026 Screening for malignant neoplasm of colon [facility] Start: 02-23-2026 End: 02-23-2026 Patient encounter procedure 02/23/2026 1:10 PM EDT Office Visit [address] [phone] Rebeca Silva MD [address] [place] [address] [facility] Start: 02-02-2026 Depression Screening Depression Screening [facility] Start: 09-04-2025 Diabetes mellitus screening Diabetes Screening [facility] Start: 09-04-2025 Thyroid stimulating hormone measurement TSH Level [facility] Start: 08-31-2025 Depression Screening Depression Screening [facility] Start: 05-05-2025 End: 05-05-2025 Patient encounter procedure 05/05/2025 2:40 PM EDT Office Visit [address] [phone] Kelli Littlejohn, CERTIFIED NURSING ATTENDANT - ANDREA [address] [place] [id number] [facility] Start: 03-23-2025 End: 03-23-2025 Patient encounter procedure 03/23/2025 1:30 PM EDT Office Visit [address] [phone] Rebeca Silva MD [address] [place] [address] [facility] Start: 03-14-2025 Influenza vaccination [facility] Start: 03-08-2025 End: 03-08-2025 Patient encounter procedure 03/08/2025 11:00 AM EDT Office Visit [facility] [address] [place] [phone] Kelli Littlejohn CERTIFIED NURSING ATTENDANT - TEACHER EDUCATION DIRECTOR [facility] [place] [address] [facility] Start: 02-05-2025 Screening for malignant neoplasm of breast Mammogram [facility] Start: 02-02-2025 End: 02-02-2025 Patient encounter procedure 02/02/2025 2:20 PM EDT Office Visit [address] [phone] Kelli Littlejohn, CERTIFIED NURSING ATTENDANT - TEACHER EDUCATION DIRECTOR [address] [place] [address] [facility] Start: 02-02-2025 End: 02-02-2026 CT Chest for screening WO contrast CT lung screening low dose Imaging Routine Lung nodules Personal history of nicotine dependence Expected: 02/02/2025, Expires: 02/02/2026 [facility] Comment on above: Expected: 02/02/2025, Expires: Start: 02-02-2025 End: 04-05-2026 DBT Breast - bilateral screening Bilateral screening mammogram with tomosynthesis Imaging Routine Encounter for screening mammogram for malignant neoplasm of breast Expected: 02/02/2025, Expires: 04/05/2026 [facility] Work Phone: Comment on above: Expected: 02/02/2025, Expires: Start: 12-28-2024 End: 12-28-2024 Patient encounter procedure 12/28/2024 1:40 PM EDT Office Visit [address] [phone] Kelli Littlejohn, CERTIFIED NURSING ATTENDANT - TEACHER EDUCATION DIRECTOR [facility] [place] [address] [facility] Start: 11-08-2024 Thyroid stimulating hormone measurement TSH Level [facility] Start: 10-15-2024 Depression Screening Depression Screening [facility] Start: 10-12-2024 End: 10-15-2024 CT Chest for screening WO contrast CT lung screening low dose Imaging Routine Personal history of tobacco use Expected: 10/12/2024, Expires: 10/15/2024 [facility] Comment on above: Expected: 10/12/2024, Expires: Start: 10-06-2024 Screening for malignant neoplasm of lung Lung Cancer Screening [facility] Start: 09-26-2024 Diabetes mellitus screening Diabetes Screening [facility] Start: 09-06-2024 End: 09-06-2024 Patient encounter procedure 09/06/2024 11:20 AM EST Office Visit [address] [phone] Kelli Littlejohn, CERTIFIED NURSING ATTENDANT - TEACHER EDUCATION DIRECTOR [address] [place] [id number] [facility] Start: 08-31-2024 End: 08-31-2025 25-hydroxyvitamin D3 [Mass/volume] in Serum or Plasma Vitamin D Deficiency Screening (Vit D 25) Lab Routine Vitamin D deficiency Expected: 08/31/2024 (Approximate), Expires: 08/31/2025 [facility] Comment on above: Expected: 08/31/2024 (Approximate), Expi res: 08/31/2025 Start: 08-31-2024 End: 02-18-2026 CBC W Auto Differential panel - Blood CBC auto differential Lab Routine Essential hypertension Expected: 08/31/2024 (Approximate), Expires: 08/31/2025 [facility] [employer] Comment on above: Expected: 08/31/2024 (Approximate), Expi res: 08/31/2025 Start: 08-31-2024 End: 08-31-2025 Comprehensive metabolic 1998 panel - Serum or Plasma Comprehensive metabolic panel Lab Routine Essential hypertension Expected: 08/31/2024 (Approximate), Expires: 08/31/2025 [facility] [employer] Comment on above: Expected: 08/31/2024 (Approximate), Expi res: 08/31/2025 Start: 08-31-2024 End: 08-31-2025 Hemoglobin A1c measurement Hemoglobin A1c Lab Routine Screening for diabetes mellitus Expected: 08/31/2024 (Approximate), Expires: 08/31/2025 [facility] [employer] Comment on above: Expected: 08/31/2024 (Approximate), Expi res: 08/31/2025 Start: 08-31-2024 End: 08-31-2025 Lipid 1996 panel - Serum or Plasma Lipid panel Lab Routine Pure hypercholesterolemia Expected: 08/31/2024 (Approximate), Expires: 08/31/2025 [facility] [employer] Comment on above: Expected: 08/31/2024 (Approximate), Expi res: 08/31/2025 Start: 08-31-2024 End: 08-31-2025 Microalbumin/Creatinin e panel in random Urine Microalbumin / creatinine, urine ratio Lab Routine Essential hypertension Expected: 08/31/2024 (Approximate), Expires: 08/31/2025 [facility] [employer] [facility] Work Phone: Comment on above: Expected: 08/31/2024 (Approximate), Expi res: 08/31/2025 Start: 08-31-2024 End: 08-31-2024 Patient encounter procedure 08/31/2024 2:00 PM EST Office Visit [facility] [place] [address] [place] [phone] Kelli Littlejohn, CERTIFIED NURSING ATTENDANT - TEACHER EDUCATION DIRECTOR [address] [place] [address] [facility] Start: 08-31-2024 End: 08-31-2025 Thyrotropin [Units/volume] in Serum or Plasma TSH Lab Routine Other specified hypothyroidism Expected: 08/31/2024 (Approximate), Expires: 08/31/2025 [facility] Comment on above: Expected: 08/31/2024 (Approximate), Expi res: 08/31/2025 Start: 05-20-2024 End: 05-20-2024 Patient encounter procedure 05/20/2024 2:40 PM EST Office Visit [facility] [address] [place] [phone] Kelli Littlejohn, CERTIFIED NURSING ATTENDANT - TEACHER EDUCATION DIRECTOR [address] [place] [address] [facility] Start: 03-14-2024 COVID-19 Vaccine () COVID-19 Vaccine () [facility] Start: 03-14-2024 Influenza vaccination [facility] Start: 12-04-2023 Screening for malignant neoplasm of breast Mammogram [facility] Start: 11-15-2023 End: 12-15-2024 DBT Breast - bilateral screening Bilateral screening mammogram with tomosynthesis Imaging Routine Screening mammogram for breast cancer Expected: 11/15/2023 (Approximate), Expires: 12/15/2024 [facility] Comment on above: Expected: 11/15/2023 (Approximate), Expi res: 12/15/2024 Start: 11-13-2023 End: 11-13-2023 Clinical Support [facility] Start: 10-16-2023 End: 10-15-2024 Cardio IQ Insulin Resistance Panel with Score (Quest # [id number]) - Miscellaneous Test Cardio IQ Insulin Resistance Panel with Score (Quest # [id number]) - Miscellaneous Test Lab Routine Screening for diabetes mellitus Expected: 10/16/2023 (Approximate), Expires: 10/15/2024 [facility] Comment on above: Expected: 10/16/2023 (Approximate), Expi res: 10/15/2024 Start: 10-16-2023 End: 10-15-2024 Thyrotropin [Units/volume] in Serum or Plasma TSH Lab Routine Postsurgical hypothyroidism Expected: 10/16/2023 (Approximate), Expires: 10/15/2024 [facility] Work Phone: Comment on above: Expected: 10/16/2023 (Approximate), Expi res: 10/15/2024 Start: 10-16-2023 End: 10-16-2023 Patient encounter procedure [facility] Start: 10-08-2023 Depression Screening Depression Screening [facility] Start: 10-07-2023 End: 10-07-2023 Patient encounter procedure 10/07/2023 7:[address] [facility] Imaging [address] [place] [phone] Rebeca Silva MD [address] [place] [address] [facility] Imaging Start: 10-04-2023 Screening for malignant neoplasm of cervix [facility] Start: 10-02-2023 End: 10-08-2023 25-hydroxyvitamin D3 [Mass/volume] in Serum or Plasma Vitamin D 25 hydroxy Lab Routine Vitamin D deficiency Expected: 10/02/2023 (Approximate), Expires: 10/08/2023 [facility] Comment on above: Expected: 10/02/2023 (Approximate), Expi res: 10/08/2023 Start: 10-02-2023 End: 10-08-2023 CBC W Auto Differential panel - Blood CBC auto differential Lab Routine Wellness examination Expected: 10/02/2023 (Approximate), Expires: 10/08/2023 [facility] [employer] Comment on above: Expected: 10/02/2023 (Approximate), Expi res: 10/08/2023 Start: 10-02-2023 End: 10-08-2023 Comprehensive metabolic 1998 panel - Serum or Plasma Comprehensive metabolic panel Lab Routine Wellness examination Expected: 10/02/2023 (Approximate), Expires: 10/08/2023 [facility] [employer] Comment on above: Expected: 10/02/2023 (Approximate), Expi res: 10/08/2023 Start: 10-02-2023 End: 10-08-2023 Hemoglobin A1c measurement Hemoglobin A1c Lab Routine Screening for diabetes mellitus Expected: 10/02/2023 (Approximate), Expires: 10/08/2023 [facility] [employer] [facility] Work Phone: Comment on above: Expected: 10/02/2023 (Approximate), Expi res: 10/08/2023 Start: 10-02-2023 End: 10-08-2023 Hemoglobin A1c/Hemoglobin.total in Blood Hemoglobin A1c Lab Routine Screening for diabetes mellitus Expected: 10/02/2023 (Approximate), Expires: 10/08/2023 [facility] [employer] Comment on above: Expected: 10/02/2023 (Approximate), Expi res: 10/08/2023 Start: 10-02-2023 End: 10-08-2023 Lipid 1996 panel - Serum or Plasma Lipid panel Lab Routine Pure hypercholesterolemia Expected: 10/02/2023 (Approximate), Expires: 10/08/2023 [facility] Comment on above: Expected: 10/02/2023 (Approximate), Expi res: 10/08/2023 Start: 10-02-2023 End: 10-08-2023 Microalbumin/Creatinin e panel in random Urine Microalbumin / creatinine urine ratio Lab Routine Wellness examination Expected: 10/02/2023 (Approximate), Expires: 10/08/2023 [facility] Comment on above: Expected: 10/02/2023 (Approximate), Expi res: 10/08/2023 Start: 08-21-2023 Diabetes mellitus screening Diabetes Screening [facility] Start: 08-21-2023 Thyroid stimulating hormone measurement TSH Level [facility] Start: 08-14-2023 End: 10-08-2023 CT Chest for screening WO contrast CT lung screening follow up low dose Imaging Routine Personal history of tobacco use Expected: 08/14/2023 (Approximate), Expires: 10/08/2023 [facility] Comment on above: Expected: 08/14/2023 (Approximate), Expi res: 10/08/2023 Start: 08-08-2023 Screening for malignant neoplasm of lung Lung Cancer Screening [facility] Start: 03-14-2023 COVID-19 Vaccine (3 - 2023-24 season) COVID-19 Vaccine () [facility] Start: 03-14-2023 Influenza vaccination [facility] Start: 02-24-2023 Screening for malignant neoplasm of colon [facility] Start: 10-30-2022 Screening for malignant neoplasm of breast Mammogram [facility] Start: 10-15-2022 End: 10-15-2022 Patient encounter procedure 10/15/2022 Office Visit General Surgery Robbi Ho MD [address] [facility] [place], [place] [id number] [facility] General Surgery Start: 10-07-2022 End: 10-07-2022 Patient encounter procedure 10/07/2022 Office Visit Internal Medicine Rebeca Silva MD [address] [place] [address] [facility] Start: 10-07-2022 End: 12-08-2023 MG Breast - bilateral Screening Bilateral screening mammogram Imaging Routine Screening mammogram for breast cancer Expected: 10/07/2022, Expires: 12/08/2023 [facility] Comment on above: Expected: 10/07/2022, Expires: Start: 08-26-2022 End: 08-26-2022 Admission to same day surgery center 08/26/2022 Surgery Procedural Robbi Ho MD [address] [facility] [place], [place] [id number] EXCISION SOFT TISSUE MASS OF RIGHT ABDOMEN [04560 (CPT )] [facility]IN OR Comment on above: EXCISION SOFT TISSUE MASS OF RIGHT ABDOM EN [18848 (CPT )] Start: 08-26-2022 End: 08-26-2022 Exc tumor soft tissue abdl wall subfascial <5cm EXCISION TUMOR SOFT TISSUE OF ABDOMINAL WALL LESS THAN 5 CM Other specified soft tissue disorders 08/26/2022 10:00 AM EST [facility] Operating Room Start: 08-26-2022 Subsequent hospital visit by physician 08/26/2022 Hospital Encounter Procedural Robbi Ho MD [address] [facility] [place] [address] [facility] Start: 08-21-2022 End: 08-21-2022 Admission to establishment 08/21/2022 Pre-Admission Testing Pre-Admission Testing [facility] Pre-Admit Testing Start: 08-13-2022 End: 08-13-2022 Patient encounter procedure 08/13/2022 Office Visit General Surgery Robbi Ho MD [address] [facility] [place] [address] [facility] Start: 07-30-2022 End: 07-30-2023 CT Chest for screening WO contrast CT lung screening low dose Imaging Routine Personal history of tobacco use Expected: 07/30/2022, Expires: 07/30/2023 [facility] [employer] [facility] Work Phone: Comment on above: Expected: 07/30/2022, Expires: 4 Start: 07-30-2022 End: 09-28-2023 MG Breast - bilateral Screening Bilateral screening mammogram Imaging Routine Encounter for screening mammogram for malignant neoplasm of breast Expected: 07/30/2022, Expires: 09/28/2023 [facility] Comment on above: Expected: 07/30/2022, Expires: 4 Start: 2022 RSV Immunization aged 60 or older (1 - 1-dose 60+ series) RSV Immunization aged 60 or older (1 - 1-dose 60+ series) [facility] Start: 2022 RSV Immunization for Adults (1 - Risk 60-74 years 1-dose series) RSV Immunization for Adults (1 - Risk 60-74 years 1-dose series) [facility] Start: 03-14-2022 Influenza vaccination Influenza Vaccine (#1) [facility] Start: 12-06-2021 Lipid panel Lipid screen [place], [place] Start: 12-04-2021 Screening for malignant neoplasm of breast Mammogram [facility] Start: 12-29-2020 COVID-19 Vaccine (3 - Booster for Moderna series) COVID-19 Vaccine (3 - Booster for Moderna series) [facility] Start: 03-14-2020 Influenza vaccination Flu vaccine (Season Ended) [place], [place] Start: 12-07-2019 Diabetes screen Diabetes screen [place], [place] Start: 12-06-2017 Pneumococcal Vaccine: 50+ Years (2 of 2 - PCV) Pneumococcal Vaccine: 50+ Years (2 of 2 - PCV) [facility] Start: 12-06-2017 Pneumococcal Vaccine: Pediatrics (0 to 5 Years) and At-Risk Patients (6 to 64 Years) (2 - PCV) Pneumococcal Vaccine: Pediatrics (0 to 5 Years) and At-Risk Patients (6 to 64 Years) (2 - PCV) [facility] Start: 12-06-2017 Pneumococcal Vaccine: Pediatrics (0 to 5 Years) and At-Risk Patients (6 to 64 Years) (2 of 2 - PCV) Pneumococcal Vaccine: Pediatrics (0 to 5 Years) and At-Risk Patients (6 to 64 Years) (2 of 2 - PCV) [facility] Start: 2012 Screening for malignant neoplasm of breast Breast cancer screen [place], [place] Start: 2012 Screening for malignant neoplasm of colon Colon cancer screen colonoscopy [place], [place] Start: 2012 Shingles Vaccine (1 of 2) Shingles Vaccine (1 of 2) [place] Start: 2012 Zoster Vaccines (1 of 2) Zoster Vaccines (1 of 2) [facility] Start: 1992 Screening for malignant neoplasm of cervix [facility] Start: 1983 Screening for malignant neoplasm of cervix [facility] Start: 1980 Hepatitis C screening Hepatitis C Screening [facility] Start: 1963 MMR Vaccines (1 of 1 - Standard series) MMR Vaccines (1 of 1 - Standard series) [facility] Start: 1962 Hepatitis B Vaccines (1 of 3 - 3-dose series) Hepatitis B Vaccines (1 of 3 - 3-dose series) [facility] Start: 1962 HIV screening HIV Screening [facility] Start: 1962 Screening for malignant neoplasm of colon [facility] Start: 1962 Thyroid stimulating hormone measurement TSH Level [facility] 25-hydroxyvitamin D3 [Mass/volume] in Serum or Plasma Vitamin D 25 hydroxy Lab Routine Vitamin D deficiency 09/27/2023 2:20 PM EDT [facility] Cologuard colon canc er screening Cologuard colon cancer screening Lab Routine Screen for colon cancer Ordered: 10/07/2022 [facility] Work Phone: Comment on above: Ordered: 10/07/2022 End: 10-07-2023 CT Chest for screening WO contrast [facility] Work Phone: Comment on above: Once for 1 Occurrences starting 10/07/19 24 until 10/07/2023 End: 08-08-2022 CT Chest for screening WO contrast [facility] Work Phone: Comment on above: Once for 1 Occurrences starting 08/08/19 until 08/08/2022 Cytology Cervical or vaginal smear or scraping study Pap Smear Pathology and Cytology Routine Screening for cervical cancer Ordered: 11/13/2023 [facility] Work Phone: Comment on above: Ordered: 11/13/2023 ECG 12 lead ECG 12 lead CV E CG STAT 08/26/2022 9:05 AM EST [facility] Work Phone: Hemoglobin A1c measurement Hemoglobin A1c Lab Routine Screening for diabetes mellitus 09/27/2023 2:20 PM EDT [facility] [employer] [facility] [employer] Proce dures Routine 12/27/2019 11:53 AM EDT [facility] [place] [place], [place] Lipid 1996 panel - Serum or Plasma Lipid panel Lab Routine Pure hypercholesterolemia 09/27/2023 2:20 PM EDT [facility] Microalbumin/Creatin in e panel in random Urine Microalbumin / creatinine urine ratio Lab Routine Wellness examination 09/27/2023 2:20 PM EDT [facility] Patient Education DVT Dc [facility] Work Phone: Patient referral [facility] Work Phone: Tissue exam [facility] [employer] Work Phone: Comment on above: Release Upon Ordering for 1 Occurrences starting 08/26/2022, 1 completed Immunizations Immunization Date Immunization Notes Care Provider Fa nadine 02-02-2025 Pneumococcal Conjuga te PCV20, Pf (Prevnar 20) Kelli Littlejohn CERTIFIED NURSING ATTENDANT - TEACHER EDUCATION DIRECTOR Work Phone: [facility] [employer] 12-27-2019 diphtheria, tetanus toxoids and acellular pertussis vaccine, unspecified formulation Nakia Bunch [facility] , [place] 12-27-2019 tetanus toxoid, redu roman diphtheria toxoid, and acellular pertussis vaccine, adsorbed [facility] Work [facility]: 12-06-2016 pneumococcal polysaccharide vaccine, 23 valent [facility] 03-16-2014 TD(adult) unspecifie d formulation [facility] [employer] Work Phone: [facility] [employer] Work Phone: 03-16-2014 Td, unspecified formulation Nakia Baeowell [facility], [place] 03-16-2014 tetanus and diphther ia toxoids, not adsorbed, for adult use Lilianalamont Matthews CERTIFIED NURSING ATTENDANT [employer] Work Phone: [facility] Payers Date Payer Category Payer Self-pay [id number] 2024 Self-pay [id number] 2016 Unknown BCBS BCBS - [place] P PO xxxxxxxxxxxxxxx 2016-Present [address] [place] [address] xxxxxxxxxxxxxxx [id number] 2012 [facility] - [place] [id number] 2012 Unknown [id number] 2012 Unknown [id number] Unknown [id number] 64 Unknown [id number] 62 Unknown [id number] 64 Unknown [id number] 62 Unknown [id number] 62 Unknown [id number] 62 Unknown [id number] 62 Unknown [id number] 62 Unknown [id number] 62 Unknown [id number] 62 Unknown [id number] 62 Unknown [id number] 64 Unknown [id number] 64 Social History Date Type Detail Facility Start: 12-08-2016 End: 02-02-2025 Tobacco smoking status NHIS Former smoker [place], [place] Start: 12-12-1980 End: 03-18-2016 History of tobacco use Current smoker [place] Start: 12-08-2016 End: 01-30-2025 Cigarettes smoked current (pack per day) - Reported [place], [place] Start: 12-08-2016 End: 07-30-2022 Alcohol intake Current non-drinker of alcohol (finding) [place] Sex Assigned At Not on file [place] Exposure to SARS-CoV -2 (event) Unable to assess [place] Start: 01-03-2020 Tobacco smoking stat us NHIS Unknown if ever smoked [facility] Work Phone: Start: 1960 Sex Assigned At Female [facility] Start: 12-12-1980 End: 03-18-2016 History of tobacco use Cigarette Smoker [facility] Start: 08-13-2022 End: 02-02-2025 Tobacco use and exposure Smokeless tobacco non-user [facility] Start: 10-07-2022 End: 11-11-2024 Alcohol intake Current drinker of alcohol (finding) [facility] Start: 08-21-2022 Alcohol Comment 2 Drinks a month [facility] Start: 07-29-2022 End: 10-07-2022 Exposure to SARS-CoV-2 (event) Not sure [facility] Start: 10-07-2022 End: 01-30-2025 Tobacco use panel [facility] Start: 05-02-2022 Gender identity Identifies as female gender (finding) [facility] Start: 05-02-2022 Sexual orientation Heterosexual (fin ding) [facility] Start: 08-13-2022 Alcohol Comment Occasional use [facility] Start: 02-11-2022 End: 10-28-2024 Sex Female (finding) [facility] Start: 04-15-2023 End: 10-25-2024 Tobacco smoking status NHIS Never smoked tobacco (finding) [facility] Start: 02-02-2025 Alcoholic beverage intake Ex-drinker (finding) [facility] How often do you nee d to have someone help you when you read instructions, pamphlets, or other written material from your doctor or pharmacy [SILS] Never [facility] Has the [facility], or [employer] threatened to shut off services in your home in past 12Mo No [facility] Are you now , , , , never or living with a partner? [facility] How often to you hav e a drink containing alcohol? Monthly or less [facility] How many standard drinks containing alcohol do you have on a typical day? 3 or 4 [facility] How hard is it for y ou to pay for the very basics like food, housing, medical care, and heating Not hard at all [facility] Do you feel stress - tense, restless, nervous, or anxious, or unable to sleep at night because your mind is troubled all the time - these days [OSQ] To some extent [facility] [employer] (I/We) worried wheth er (my/our) food would run out before (I/we) got money to buy more. Never true [facility] Start: 02-02-2025 Tobacco Comment I started in [employer] school (), quit in 1991, started in 1996, quit in 2007, quit 2015 [facility] Start: 02-02-2025 Alcohol Comment Had surgery, b een on meds for 5 months [facility] NEGATED: Highlighted rowStart: NINF History of tobacco use Passive smoker [facility] Goals Date Patient Goal Desired Activity /State Comment on above: Self- Management Goa ls: Below are goal(s) discussed with your doctor: Goal(s): Medication compliance, Weight loss at a rate of 0.5 - 1 lb/week to goal BMI 25, BP control <140/90, glucose and cholesterol control, and regular exercise working up to 3-5X/week for at least 20 minutes Barriers to success identified and discussed: Time and Support Date goal set: 12/06/16 Patient instructed to monitor home readings if/as discussed for review next visit. Patient given educational materials as appropriate. Isis received counseling about current lifestyle goal(s). Discussed use, benefit, and side effects of prescribed medications. Patient questions answered. Pt voiced understanding. Functional Status Date Assessment Result Facility 02-02-2025 Patient Health Questionnaire 2 item (PHQ- 2) [Reported] [facility] Mental Status Date Assessment Result Facility 10-25-2024 Cognitive function Level Of Cons ciousness Awake;Alert;Appropriate;Follow s Commands [facility] Work Phone: Clinical Notes 07-17-2022 to 02-11-2025 Telephone Encounter - Trudy Gonzales LPN - 02/11/2025 7:17 AM EDTTelephone Encounter - Trudy Gonzales LPN - 02/11/2025 7:17 AM RAMAKRISHNA Plummer CNP - 02/02/2025 2:20 PM EDT Note Date & Type Note Facility 02-11-2025 Telephone encounter Note 03/23/25 [facility] 02-11-2025 Miscellaneous Notes 03/23/25 documented in this encounter [facility] 02-02-2025 Evaluation + Plan note Associated Problem(s): Essential hypertension Chronic. Controlled on lisinopril 10 mg daily. Continue current tx. Anticipate improved bp with weight reduction. May be realistic to d/c in the future. Continue to monitor. [facility] 02-02-2025 Evaluation + Plan note Associated Problem(s): Other emphysema (HCC) Chronic. Noted on CT lung screening. Sx stable without inhalers. Discussed respiration protective vaccines. [facility] 02-02-2025 Evaluation + Plan note Associated Problem(s): Other specified hypothyroidism Chronic. Stable on levothyroxine. Continue current tx. [facility] 02-02-2025 Evaluation + Plan note Associated Problem(s): Pure hypercholesterolemia Chronic. Stable. Low 10 yr risk. Continue to monitor. Encouraged diet, exercise [facility] 02-02-2025 History of Present illness Narrative Images from the original note were not included. [place] [id number] [facility] [address] Dept: [phone] Dept Visit type: Established patient Reason for Visit: Annual Exam Assessment and Plan Assessment & Plan Annual physical exam Discussed preventative screenings Encounter for screening mammogram for malignant neoplasm of breast Orders: Bilateral screening mammogram with tomosynthesis; Future Lung nodules Chronic. Prev Stable 12 month follow up due Orders: CT lung screening low dose; Future Personal history of nicotine dependence Orders: CT lung screening low dose; Future Need for pneumococcal 20-valent conjugate vaccination Orders: Pneumococcal conjugate vaccine 20-valent IM (PREVNAR 20) Immunization counseling Recommend rsv, shingrix Acute deep vein thrombosis (DVT) of right lower extremity, unspecified vein (HCC) Acute s/p R TKA. Has been on eliquis since 10/2024. Discussed 3-6 month duration. Having slow progress d/t pain, swelling. In pain management in [place], currently in PT. Just started driving a few weeks ago and currently back to work PT. Will increase to FT next week. Shared decision making used to continue eliquis for 6 month duration d/t not back to full acitivity. Pure hypercholesterolemia Chronic. Stable. Low 10 yr risk. Continue to monitor. Encouraged diet, exercise Class 1 obesity due to excess calories with serious comorbidity and body mass index (BMI) of 30.0 to 30.9 in adult Chronic. Improving. Currently on wegovy through [facility]. Essential hypertension Chronic. Controlled on lisinopril 10 mg daily. Continue current tx. Anticipate improved bp with weight reduction. May be realistic to d/c in the future. Continue to monitor. Other emphysema (HCC) Chronic. Noted on CT lung screening. Sx stable without inhalers. Discussed respiration protective vaccines. Other specified hypothyroidism Chronic. Stable on levothyroxine. Continue current tx. Vitamin D deficiency Chronic. Uncontrolled. Increase vit D from 2000 u to 3000 u daily Chronic pain of right knee Chronic. Since right TKA. Managed by pain management in [place]. Stable on gabapentin 600 mg TID. Continue tx and follow up with prescribing provider. Follow up for eliquis follow up 04/2025, annual 1 yr 40 min sarah. Subjective HPI Pt is here for physical Had acute DVT after right TKA 4 months ago She is now in pain management and on gabapentin 600 mg TID States that she is in PT and improving but activity is still limited HTN- Controlled on lisinopril. Has some dry cough Hypothyroid- Stable on levothyroxine 88 mcg Lab Results Component Value Date TSH 1.25 09/04/2024 Obesity- On wegovy per clinic in [place] Wt Readings from Last 6 Encounters: 02/02/25 176 lb 12.8 oz (80.2 kg) 11/11/24 164 lb 12.8 oz (74.8 kg) 09/06/24 171 lb (77.6 kg) 08/31/24 173 lb 11.2 oz (78.8 kg) 02/06/24 190 lb (86.2 kg) 11/13/23 198 lb 3 oz (89.9 kg) Improved cravings Vit d- Currently on 1000 u HLD- The 10-year ASCVD risk score (Lam CALDERON, et al., 2019) is: 4.5% Values used to calculate the score: Age: 64 years Sex: Female Is Non- : No Diabetic: No Tobacco smoker: No Systolic Blood Pressure: 126 mmHg Is BP treated: Yes HDL Cholesterol: 70 mg/dL Total Cholesterol: 196 mg/dL HM- Mammogram due PAP utd Review of Systems Constitutional: Negative for activity change and fatigue. Respiratory: Positive for cough. Negative for shortness of breath. Cardiovascular: Negative for chest pain. Gastrointestinal: Negative for nausea and vomiting. Allergies[1] Current Medications[2] Medical History[3] Social History Tobacco Use Smoking status: Former Current packs/day: 0.00 Average packs/day: 1.5 packs/day for 38.0 years (57.0 ttl pk-yrs) Types: Cigarettes Start date: 12/12/1980 Quit date: 03/18/2016 Years since quittin.8 Passive exposure: Never Smokeless tobacco: Never Tobacco comments: I started in high school (), quit in 1991, started in 1996, quit in 2007 - 2008, quit 2016 Substance Use Topics Alcohol use: Not Currently Alcohol/week: 2.0 standard drinks of alcohol Comment: Had surgery, been on meds for 5 months Surgical History[4] Family History[5] Objective BP 126/68 Pulse 80 Wt 176 lb 12.8 oz (80.2 kg) SpO2 95% BMI 30.83 kg/m Physical Exam Constitutional: General: She is not in acute distress. Appearance: She is not ill-appearing or toxic-appearing. HENT: Head: Normocephalic and atraumatic. Neck: Thyroid: No thyromegaly. Cardiovascular: Rate and Rhythm: Normal rate and regular rhythm. Pulmonary: Effort: Pulmonary effort is normal. Breath sounds: Normal breath sounds. Musculoskeletal: Cervical back: Neck supple. Right lower leg: No edema. Left lower leg: No edema. Comments: Right knee swelling (improved from previous), benign surgical incision Skin: General: Skin is warm and dry. Neurological: Mental Status: She is alert. Psychiatric: Mood and Affect: Mood normal. Data Reviewed and Summarized Labs: Imaging/Testing: Kelli Littlejohn, CERTIFIED NURSING ATTENDANT - TEACHER EDUCATION DIRECTOR [1] Allergies Allergen Reactions Cefadroxil Swelling [2] Current Outpatient Medications: apixaban (Eliquis) 5 MG tablet, Take 1 tablet (5 mg) by mouth 2 times daily., Disp: 60 tablet, Rfl: 2 cholecalciferol (Vitamin D3) 25 MCG (1000 UT) tablet, , Disp: , Rfl: gabapentin (Neurontin) 600 MG tablet, Take 600 mg by mouth 3 times daily., Disp: , Rfl: levothyroxine (Synthroid, Levoxyl) 88 MCG tablet, TAKE 1 TABLET BY MOUTH EVERY DAY, Disp: 90 tablet, Rfl: 3 lisinopril 10 MG tablet, Take 1 tablet (10 mg) by mouth daily., Disp: 90 tablet, Rfl: 0 Wegovy 2.4 MG/0.75ML solution auto-injector, Inject 2.4 mg under the skin every 7 days., Disp: , Rfl: [3] Past Medical History: Diagnosis Date Goiter Hypertension On file Obesity Years Personal history of tobacco use Pure hypercholesterolemia Not in statin benefit group Thyroid nodule 2007 Varicella 1970 [4] Past Surgical History: Procedure Laterality Date SECTION (HISTORICAL) 1987 SECTION, LOW TRANSVERSE JOINT REPLACEMENT 09/17/2024 KNEE CARTILAGE SURGERY Right 2016 meniscus tears ([facility]) MOUTH SURGERY gums bleeding OTHER SURGICAL HISTORY 08/26/2022 soft tissue mass of right side of abdomen REFRACTIVE SURGERY 1989 THYROIDECTOMY, PARTIAL Right 2007 (surgery at [facility]) TOTAL KNEE ARTHROPLASTY Right 09/17/2024 TUBAL LIGATION 1988 [5] Family History Problem Relation Name Age of Onset COPD Brother Tayo Foote Other ([id number]) Brother Tayo Foote Hx MRSA infection Diabetes Mother Tammie Foote Hypertension Mother Tammie Foote Obesity Sister Emilia Diabetes Sister Emilia Hyperlipidemia Sister Emilia Other ([id number]) Sister anorexia - eating disorder Other ([id number]) Father Bryce Foote colon resection COPD Father Bryce Foote documented in this encounter [facility] 02-02-2025 Miscellaneous Notes Associated Problem(s): Essential hypertension Chronic. Controlled on lisinopril 10 mg daily. Continue current tx. Anticipate improved bp with weight reduction. May be realistic to d/c in the future. Continue to monitor. Associated Problem(s): Other emphysema (HCC) Chronic. Noted on CT lung screening. Sx stable without inhalers. Discussed respiration protective vaccines. Associated Problem(s): Other specified hypothyroidism Chronic. Stable on levothyroxine. Continue current tx. Associated Problem(s): Pure hypercholesterolemia Chronic. Stable. Low 10 yr risk. Continue to monitor. Encouraged diet, exercise documented in this encounter [facility] 01-10-2025 Telephone encounter Note 02/02/25 [facility] 01-10-2025 Miscellaneous Notes 02/02/25 documented in this encounter [facility] 01-06-2025 Radiology Diagnostic study note [facility] Imaging Services [address] [place], [place] [address] Lumbar Spine 2 or 3 Views MR#: [id number] Acct: [id number] Name: ISIS ULRICH Rep #: [id number] : 1960 F 64 From: Cassy Heath MD PCP: Dr. Rebeca Silva MD Status: REG CLI Study:Lumbar Spine 2 or 3 Views Date of Exam: 01/06/25 Exam# [id number] Ordering Dr: Ulices Oakley MD EXAM: XR Lumbosacral Spine, 2 or 3 Views CLINICAL INDICATION: SPONDYLOSIS WITHOUT MYELOPATHY OR RADICULOPATHY, LUMBAR REGION TECHNIQUE: Frontal and lateral views of the lumbar spine and sacrum. COMPARISON: No relevant prior studies available. FINDINGS: VERTEBRAE: Mild multilevel endplate degenerative changes of L1-2 S1. Moderate disc disease of L5-S1. Moderate facet arthropathy of L4-S1. No acute fracture. Normal alignment. SACRUM/COCCYX: Unremarkable as visualized. No acute fracture. DISC SPACES: No acute findings. No significant narrowing. SOFT TISSUES: Unremarkable. RAD/Lumbar Spine 2 or 3 Views IMPRESSION: Degenerative changes as above. Reading [facility] CC: Dr. Magdiel Oakley MD; Dr. Rebeca Silva MD ~ Associate Media Director: Signed [facility] 11-11-2024 History of Present illness Narrative Images from the original note were not included. [facility] [address] [facility] [address] Dept: [phone] Dept Visit type: Established patient Reason for Visit: ER Follow-up Assessment and Plan Assessment & Plan Acute deep vein thrombosis (DVT) of right lower extremity, unspecified vein (HCC) Acute. Provoked. Right TKA. Discussed eliquis x 3-6 months. Started 10/25/24. Follow up at 3 month nakia to reassess Orders: apixaban (Eliquis) 5 MG tablet; Take 1 tablet (5 mg) by mouth 2 times daily. History of total knee arthroplasty, right Follow up for change annual to mid january and dvt f/u. Subjective ER Follow-up Associated symptoms include arthralgias and myalgias. Pertinent negatives include no chest pain, coughing or fatigue. Pt is here for follow up States that she had right TKA on 09/17 States that she had swelling and pain and went to ER 2 weeks later. Negative for DVT 5 weeks post op, pain was worse and she returned to ER and was dx with DVT in RLQ Surgery was at [facility] and is seeing [facility] Was told by ortho that she would be referred to pain management Review of Systems Constitutional: Positive for appetite change. Negative for fatigue. Respiratory: Negative for cough and shortness of breath. Cardiovascular: Positive for leg swelling. Negative for chest pain. Musculoskeletal: Positive for arthralgias, back pain and myalgias. Allergies Allergen Reactions Cefadroxil Swelling Current Outpatient Medications: cholecalciferol (Vitamin D3) 25 MCG (1000 UT) tablet, , Disp: , Rfl: levothyroxine (Synthroid, Levoxyl) 88 MCG tablet, TAKE 1 TABLET BY MOUTH EVERY DAY, Disp: 90 tablet, Rfl: 3 lisinopril 10 MG tablet, Take 1 tablet (10 mg) by mouth daily., Disp: 90 tablet, Rfl: 0 Wegovy 2.4 MG/0.75ML solution auto-injector, Inject 2.4 mg under the skin every 7 days., Disp: , Rfl: apixaban (Eliquis) 5 MG tablet, Take 1 tablet (5 mg) by mouth 2 times daily., Disp: 60 tablet, Rfl: 2 cyanocobalamin (Vitamin B-12) 100 MCG tablet, , Disp: , Rfl: omega-3 (Fish Oil) 1200 MG capsule, , Disp: , Rfl: thiamine (,Vitamin B-1,) 100 MG tablet, , Disp: , Rfl: Past Medical History: Diagnosis Date Goiter Personal history of tobacco use Pure hypercholesterolemia Not in statin benefit group Thyroid nodule 2007 Social History Tobacco Use Smoking status: Former Current packs/day: 0.00 Average packs/day: 1.5 packs/day for 31.0 years (46.5 ttl pk-yrs) Types: Cigarettes Start date: 12/12/1980 Quit date: 12/13/2011 Years since quittin.9 Passive exposure: Never Smokeless tobacco: Never Substance Use Topics Alcohol use: Yes Alcohol/week: 2.0 standard drinks of alcohol Types: 2 Standard drinks or equivalent per week Comment: 2 Drinks a month Past Surgical History: Procedure Laterality Date SECTION (HISTORICAL) 1987 SECTION, LOW TRANSVERSE KNEE CARTILAGE SURGERY Right 2016 meniscus tears ([facility]) MOUTH SURGERY gums bleeding OTHER SURGICAL HISTORY 08/26/2022 soft tissue mass of right side of abdomen REFRACTIVE SURGERY 1989 THYROIDECTOMY, PARTIAL Right 2007 (surgery at [facility]) TOTAL KNEE ARTHROPLASTY Right 09/17/2024 TUBAL LIGATION 1987 Family History Problem Relation Name Age of Onset COPD Brother Tayo Foote Other ([id number]) Brother Tayo Foote Hx MRSA infection Diabetes Mother Tammie Foote Hypertension Mother Tammie Foote Obesity Sister Emilia Diabetes Sister Emilia Hyperlipidemia Sister Emilia Other ([id number]) Sister anorexia - eating disorder Other ([id number]) Father Bryce Foote colon resection COPD Father Bryce Foote Objective BP 128/82 (BP Location: Right arm, Patient Position: Sitting, BP Cuff Size: Adult) Pulse 77 Wt 164 lb 12.8 oz (74.8 kg) SpO2 98% BMI 28.74 kg/m Physical Exam Constitutional: General: She is not in acute distress. Appearance: Normal appearance. HENT: Head: Normocephalic and atraumatic. Cardiovascular: Rate and Rhythm: Normal rate and regular rhythm. Pulses: Normal pulses. Pulmonary: Effort: Pulmonary effort is normal. Breath sounds: Normal breath sounds. Musculoskeletal: General: Swelling (RLE) present. Right lower leg: No edema. Left lower leg: No edema. Skin: General: Skin is warm and dry. Psychiatric: Mood and Affect: Mood normal. Data Reviewed and Summarized Labs: Imaging/Testing: RAMAKRISHNA Reyes CNP documented in this encounter [facility] 10-25-2024 Discharge summary [facility] 10-25-2024 Discharge summary Note Date/Time October 25, 2024 3:54pm [facility] Medical Records Department [address] [place] [address] Emergency Department Summary 10/25/24 MR#: [id number] Acct: [id number] Name: ISIS ULRICH Rep #:[id number] : 1960 64 From: Kelly STOKES PCP: Dr. Rebeca Silva MD Status:REG ER Location: ED ADDENDUM by Dr. Sim Ledbetter MD on 10/25/24 at 1554 I did speak to voice to orthopedic office the housing manager to notify them to let Dr. Mele Allen know of his patient's postop DVT. 10/25/24 1554<Electronically signed by Sim Ledbetter MD> Cosigner Signature (if applicable): 10/25/24 1550 <Electronically signed by Rip ALCARAZ> cc: Dr. Rebeca Silva MD ~* Signed HPI <DIVYA Vasquez - Last Filed: 10/25/24 15:40> History of Present Illness Chief Complaint: General Illness Narrative Narrative: 64-year-old female had an outpatient ultrasound of her right leg that was positive for DVT and was sent to the ED. She had a right knee replacement about5 weeks ago (September 17) with Dr. Mele Allen. Over the last 2 weeks or so she developed increased pain and swelling in the knee and upper calf area. She has been doing physical therapy and recovering overall. She is still taking oxycodone as needed. No fever or chills. No chest pain or shortness of breath. No history of DVT/PE. PFSH <DIVYA Vasquez - Last Filed: 10/25/24 15:40> PFS Medical History URI (upper respiratory infection) Thoracic myofascial strain Knee pain Home Medications ?Medication ?Instructions ?Recorded ?Last Taken ?Type levothyroxine 75 mcg tablet 75 mcg PO DAILY 01/03/20 U nknown History (Synthroid) naproxen sodium 220 mg capsule 220 mg PO BID PRN 01/02 Unknown History (Aleve) cyclobenzaprine 10 mg tablet 10 mg PO TID PRN muscle s pasm #20 04/15/23 Unknown Rx tabs naproxen 500 mg tablet 500 mg PO BID #20 tabs 04/15 Unknown Rx apixaban 5 mg (74 tabs) tablets in See Rx Instructions PO .COMPLEX 10/25/24 Unknown Rx a dose pack (Eliquis DVT-PE Treat #74 tabs 30D Start) Allergy/AdvReac Type Severity Reaction Status Date / Time No Known Allergies Allergy Verified 10/25/24 15:17 Family History Mother Diabetes CVD (cardiovascular disease) Surgical History Hx of section History of thyroid surgery History of knee surgery Social History Smoking Status: Never smoker alcohol intake: never ROS <DIVYA Vasquez - Last Filed: 10/25/24 15:40> ROS ED ROS Narrative Constitutional: Negative for fever, chills, malaise. CVS: Negative for chest pain. Respiratory: Negative for shortness of breath. Neuro: Negative for motor/sensory dysfunction. EXAM <DIVYA Vasquez - Last Filed: 10/25/24 15:40> Physical Exam Narrative Exam Narrative: CONST: Patient sitting in no acute distress. EYES: Normal inspection. NECK: Normal inspection. RESP: No respiratory distress, CTAB. CVS: Regular rate and rhythm, no murmur, no gallop. SKIN: Color normal, no rash, warm, dry, intact. EXTREMITIES: Midline right knee incision is well-healed. Mild swelling of rightknee as compared to left but no warmth or redness. Range of motion intact. Tender over the left mid and upper calf without palpable cords. No lower extremity edema. 2+ DP pulses. NEURO: Alert and answering questions appropriately. PSYCH: Normal affect. Const Vital Signs: 10/25/24 15:16 10/25/24 15:41 Temperature 97.8 F 97.8 F Temperature Source Oral Pulse Rate 78 78 Respiratory Rate 18 18 Blood Pressure 153/79 H 153/79 H Blood Pressure Mean 103 103 Pulse Ox 98 98 Oxygen Delivery Method Room Air <Dr. Sim Ledbetter MD - Last Filed: 10/25/24 15:50> Physical Exam Const Vital Signs: 10/25/24 15:16 10/25/24 15:41 Temperature 97.8 F 97.8 F Temperature Source Oral Pulse Rate 78 78 Respiratory Rate 18 18 Blood Pressure 153/79 H 153/79 H Blood Pressure Mean 103 103 Pulse Ox 98 98 Oxygen Delivery Method Room Air MDM <DIVYA Vasquez - Last Filed: 10/25/24 15:40> [facility] Narrative Medical decision making narrative: 64-year-old female is 5 weeks postop from a right knee replacement and developedsome knee and upper calf pain and her outpatient duplex ultrasound from today shows a right soleus DVT. No history of DVT/PE. She appears well nontoxic and vital signs are stable. She has no chest pain or shortness of breath so I am not concerned for PE. She had recent blood work 2 months ago preop which shows normal CBC and BMP so this does not need repeated prior to initiating anticoagulation. I thoroughly discussed the risks and benefits of Eliquis. First dose was given here and prescription sent to her pharmacy. I recommended close follow-up with her PCP and she was discharged in stable condition. <Dr. Sim Ledbetter MD - Last Filed: 10/25/24 15:50> [facility] Narrative Medical decision making narrative: 64-year-old female is 5 weeks postop from a right knee replacement and developedsome knee and upper calf pain and her outpatient duplex ultrasound from today shows a right soleus DVT. No history of DVT/PE. She appears well nontoxic and vital signs are stable. She has no chest pain or shortness of breath so I am not concerned for PE. She had recent blood work 2 months ago preop which shows normal CBC and BMP so this does not need repeated prior to initiating anticoagulation. I thoroughly discussed the risks and benefits of Eliquis. First dose was given here and prescription sent to her pharmacy. I recommended close follow-up with her PCP and she was discharged in stable condition. I have personally performed a face to face assessment of the patient and have reviewed the LIZZIE Note. I performed a substantive portion of the visit including all aspects of the following. My ugarte findings include: History is [62-year-old female about 5+ weeks ago had right knee replaced surgery by Dr. Mele Allen. Developed calf pain recently. Had a noninvasive study done today in the vascular lab which showed a right calf DVT. Denies any chest pain or shortness of breath. No other complaint well-appearing 62-year-old female. Vital signs stable afebrile. Pulse ox 90% on room air Narvox. H EENT exam s.] Exam is [pupils round react light. Moist mucous members. Lungs clear equal symmetric bilateral. Heart regular rhythm rate about 75 no murmur. Chest wall ribs nontender. Abdomen soft nontender. Moving all 4 extremities. Neurovascular intact. Right knee well-healed anterior surgical incision. Dry and clean. No redness or warmth. She is able to flex extend her right knee and hip. Normal dorsi plantarflexion of her right foot. Normal DP pulse. Normal sensation. She has tenderness on the right proximal calf medially.. No cord. Trace edema. Consistent with a DVT. No redness.] Medical Decision Making [noninvasive study right calf DVT. Patient be started on Eliquis. Outpatient follow-up with her primary care physician.] Other additions or changes: [None] Discharge Plan Triage Chief Complaint: General Illness ED Midlevel Provider: Kelly More ED Provider: Sim Ledbetter Dx/Rx/DC Orders Clinical Impression: Acute deep vein thrombosis (DVT) of right lower extremity, History of total right knee replacement Instructions: DVT Dc Prescriptions: New Eliquis DVT-PE Treat 30D Start 5 mg (74 tabs) tablets,dose pack See Rx Instructions .ROUTE .COMPLEX Qty: 74 0RF Rx Instructions: orally per package directions No Action naproxen sodium [Aleve] 220 mg capsule 220 mg PO BID PRN levothyroxine [Synthroid] 75 mcg tablet 75 mcg PO DAILY naproxen 500 mg tablet 500 mg PO BID Qty: 20 0RF cyclobenzaprine 10 mg tablet 10 mg PO TID PRN (Reason: muscle spasm) Qty: 20 0RF Rx Instructions: do not drive/ operate heavy equipment after taking this medication Primary Care Provider: Rebeca Silva Referrals: Rebeca Silva MD [Primary Care Provider] - Activity Restrictions/Additional Instructions: There is a blood clot in your right soleus vein. I prescribed a blood thinner called Eliquis that you take twice daily. If you have any bleeding issues like blood in your vomit, urine, or stool please be seen immediately. If you fall orhave a head injury be seen immediately in the ER. Follow-up with your primary care doctor in 1 to 2 weeks. Print Language: Senegalese Disposition Disposition: Home, Self Care What to do if you have Problems For any increased pain, shortness of breath, bleeding, nausea or vomiting, chestpain, or any unexpected problems, contact your Primary Care Provider. Call [facility] ([phone]) or report to the closest Emergency Room. Call 911 if necessary. 10/25/24 1540 <Electronically signed by Kelly STOKES> Cosigner Signature (if applicable): 10/25/24 1550 <Electronically signed by Sim Ledbetter MD> CC: Dr. Rebeca Silva MD ~ Signed [facility] Work Phone: 1(609) 382-562604-14-2025 Telephone encounter Note* Telephone Encounter - RAMAKRISHNA Gibbs CNP - 10/25/2024 10:07 AM EDT Recommend staying on it. BP was not controlled before surgery. Likely needs it ongoing. [facility] re-evalat December [id number] Miscellaneous Notes* Telephone Encounter - RAMAKRISHNA Gibbs CNP - 10/25/2024 10:07 AM EDT Recommend staying on it. BP was not controlled before surgery. Likely needs it ongoing. Can re-evalat December follow up * Telephone Encounter - Trudy Gonzales LPN - 10/22/2024 9:08 AM EDT Pt is questioning wether you wanted pt to continue on this. Please advise documented in this [facility]04-14-2025 Hospital Discharge instructions Additional Instructions There is a blood clot in your right soleus vein. I prescribed a blood thinner called Eliquis that you take twice daily. If you have any bleeding issues like blood in your vomit, urine, or stool please be seen immediately. If you fall or have a head injury be seen immediately in the ER. Follow-up with your primary care doctor in 1 to 2 weeks.[facility] Work Phone: [phone]) 272-851904-11-2025 Telephone encounter Note* Telephone Encounter - Trudy Gonzales LPN - 10/22/2024 9:08 AM EDT Pt is questioning wether you wanted pt to continue on this. Please advise [id number] Telephone encounter Note* Telephone Encounter - Mindy Cuadra - 10/13/2024 4:34 PM EDT We have been unable to reach your patient to schedule their testing. Test Name: CT lung screening 1st Attempt: 07/15/2024 spoke with patient wants to schedule later 2nd Attempt: 10/13 mychart message sent [id number] Miscellaneous Notes* Telephone Encounter - Mindy Cuadra - 10/13/2024 4:34 PM EDT We have been unable to reach your patient to schedule their testing. Test Name: CT lung screening 1st Attempt: 07/15/2024 spoke with patient wants to schedule later 2nd Attempt: 10/13 mychart message sent documented in this [facility]03-21-2025 Telephone encounter Note* Telephone Encounter - Yaima Thomson - 10/01/2024 2:41 PM EDT la [id number] Miscellaneous Notes* Telephone Encounter - Yaima Thomson - 10/01/2024 2:41 PM EDT la documented [id number] Evaluation + Plan note* Assessment & Plan Note - RAMAKRISHNA Gibbs CNP - 09/06/2024 1:32 PM EST Associated Problem(s): Pure hypercholesterolemia Not in statin benefit group. Continue fish oil. Encouraged balanced diet, exercise. Monitor. [id number] Evaluation + Plan note* Assessment & Plan Note - RAMAKRISHNA Gibbs CNP - 09/06/2024 1:32 PM ESTAssociated Problem(s): Other specified hypothyroidism Stable on levothyroxine. Continue current tx. [id number] Miscellaneous Notes* Assessment & Plan Note - RAMAKRISHNA Gibbs CNP - 09/06/2024 1:32 PM ESTAssociated Problem(s): Pure hypercholesterolemia Not in statin benefit group. Continue fish oil. Encouraged balanced diet, exercise. Monitor. * Assessment & Plan Note - RAMAKRISHNA Gibbs CNP - 09/06/2024 1:32 PM EST Associated Problem(s): Other specified hypothyroidism Stable on levothyroxine. Continue current tx. * Assessment & Plan Note - RAMAKRISHNA Gibbs CNP - 09/06/2024 1:31 PM EST Associated Problem(s): Essential hypertension Controlled on lisionpril 10 mg daily. Continue current tx. * Assessment & Plan Note - RAMAKRISHNA Gibbs CNP - 09/06/2024 1:31 PM EST Associated Problem(s): Other emphysema (HCC) Sx stable without current pharmacologic tx documented in this [facility]02-24-2025 Evaluation + Plan note* Assessment & Plan Note - RAMAKRISHNA Gibbs CNP - 09/06/2024 1:31 PM EST Associated Problem(s): Essential hypertension Controlled on lisionpril 10 mg daily. Continue current tx. [id number] Evaluation + Plan note* Assessment & Plan Note - RAMAKRISHNA Gibbs CNP - 09/06/2024 1:31 PM ESTAssociated Problem(s): Other emphysema (HCC) Sx stable without current pharmacologic tx [id number] History of Present illness Narrative* RAMAKRISHNA Gibbs CNP - 09/06/2024 11:20 AM EST Images from the original note were not included. [address] [address] Dept: [phone] Dept Visit type: Established patient Reason for Visit: Other (Surgical clearance) Assessment and Plan 1. Chronic pain of right knee 2. Preoperative clearance Comments: cleared for planned surgery. 3. Essential hypertension Assessment & Plan: Controlled on lisionpril 10 mg daily. Continue current tx. 4. Other emphysema (HCC) Assessment & Plan: Sx stable without current pharmacologic tx 5. Pure hypercholesterolemia Assessment & Plan: Not in statin benefit group. Continue fish oil. Encouraged balanced diet, exercise. Monitor. Follow up in about 6 months (around 03/06/2025) for 20 min HTN, f/u 20 min, team sarah, annual 40 min when due. Subjective HPI Pt presents for pre-op clearance for R total knee with Dr. Allen at [facility] on 09/17/24 Pre-op testing was completed on 08/24/24 Pt denies CP, SOB, ankle swelling, or orthopnea. Has dyspnea on exertion, at baseline Hx of smoking, quit [address] No pharmacologic tx No asthma Denies DENNIS. Pt has had prior surgeries under anesthesia. Denies any complications. Denies hx of DVT/PE Not currently on any NSAIDs or anti-coagulants. Swapnil's Simple Cardiac RiskIndex: High-risk surgery (intraperitoneal, intrathoracic or suprainguinalvascular surgery): no Coronary artery disease: no Congestive heart failure: no History ofcerebrovascular disease: no Insulin treatment for diabetes mellitus: no Preoperative serumcreatinine > 2.0mg/dL: no Total: 0 Interpretation: 0Points Class I 1 Point Class II 2 Points Class III >=3 Points Class IV Class: 1 BP Readings from Last 3 Encounters: 09/06/24 130/78 08/31/24 (!) 142/92 11/13/23 126/84 Wt Readings from Last 3 Encounters: 09/06/24 171 lb (77.6 kg) 08/31/24 173 lb 11.2 oz (78.8 kg) 02/06/24 190 lb (86.2 kg) Lab Results Component Value Date WBC 5.3 09/04/2024 HGB 13.9 09/04/2024 HCT 42.4 09/04/2024 MCV 84.6 09/04/2024 PLT 311 09/04/2024 Lab Results Component Value Date NA 136 09/27/2023 K 4.1 09/27/2023 CL 104 09/27/2023 CO2 27 09/04/2024 BUN 11 09/04/2024 CREATININE 0.61 09/04/2024 GLUCOSE 90 09/04/2024 CALCIUM 9.0 09/04/2024 Lab Results Component Value Date CHLPL 186 12/19/2020 CHLPL 186 09/29/2020 CHOL 182 09/27/2023 CHOL 184 08/21/2022 Lab Results Component Value Date TRIG 70 09/27/2023 TRIG 62 08/21/2022 TRIG 74 12/19/2020 Lab Results Component Value Date HDL 57 09/27/2023 HDL 57 08/21/2022 HDL 59 12/19/2020 Lab Results Component Value Date LDLCALC 111 (H) 09/27/2023 LDLCALC 115 (H) 08/21/2022 LDLCALC 112 12/19/2020 Lab Results Component Value Date VLDL 15 12/19/2020 VLDL 15 09/29/2020 Lab Results Component Value Date CHOLHDLRATIO 3 09/27/2023 CHOLHDLRATIO 3 08/21/2022 The 10-year ASCVD risk score (Lam DK, et al., 2019) is: 4.8% Values used to calculate the score: Age: 64 years Sex: Female Is Non- : No Diabetic: No Tobacco smoker: No Systolic Blood Pressure: 130 mmHg Is BP treated: Yes HDL Cholesterol: 70 mg/dL Total Cholesterol: 196 mg/dL Review of Systems Constitutional: Negative for activity change and fatigue. Respiratory: Negative for cough and shortness of breath. Cardiovascular: Negative for chest pain. Gastrointestinal: Negative for diarrhea and vomiting. Musculoskeletal: Positive for arthralgias. Neurological: Negative for dizziness and headaches. Psychiatric/Behavioral: The patient is nervous/anxious. Allergies Allergen Reactions Cefadroxil Swelling Outpatient Medications Prior to Visit Medication Sig Dispense Refill cholecalciferol (Vitamin D3) 25 MCG (1000 UT) tablet levothyroxine (Synthroid, Levoxyl) 88 MCG tablet TAKE 1 TABLET BY MOUTH EVERY DAY 90 tablet 3 lisinopril 10 MG tablet Take 1 tablet (10 mg) by mouth daily. 30 tablet 1 omega-3 (Fish Oil) 1200 MG capsule Wegovy 2.4 MG/0.75ML solution auto-injector Inject 2.4 mg under the skin every 7 days. cyanocobalamin (Vitamin B-12) 100 MCG tablet (Patient not taking: Reported on 09/06/2024) thiamine (,Vitamin B-1,) 100 MG tablet (Patient not taking: Reported on 09/06/2024) No facility-administered medications prior to visit. Past Medical History: Diagnosis Date Goiter Personal history of tobacco use Pure hypercholesterolemia Not in statin benefit group Thyroid nodule 2007 Social History Tobacco Use Smoking status: Former Current packs/day: 0.00 Average packs/day: 1.5 packs/day for 31.0 years (46.5 ttl pk-yrs) Types: Cigarettes Start date: 12/12/1980 Quit date: 12/13/2011 Years since quittin.7 Passive exposure: Never Smokeless tobacco: Never Substance Use Topics Alcohol use: Yes Alcohol/week: 2.0 standard drinks of alcohol Types: 2 Standard drinks or equivalent per week Comment: 2 Drinks a month Past Surgical History: Procedure Laterality Date SECTION (HISTORICAL) 1987 SECTION, LOW TRANSVERSE KNEE CARTILAGE SURGERY Right 2016 meniscus tears ([facility]) MOUTH SURGERY gums bleeding OTHER SURGICAL HISTORY 08/26/2022 soft tissue mass of right side of abdomen REFRACTIVE SURGERY 1989 THYROIDECTOMY, PARTIAL Right 2007 (surgery at [facility]) TUBAL LIGATION 1987 Family History Problem Relation Name Age of Onset COPD Brother Tayo Foote Other ([id number]) Brother Tayo Foote Hx MRSA infection Diabetes Mother Tammie Foote Hypertension Mother Tammie Foote Obesity Sister Emilia Diabetes Sister Emilia Hyperlipidemia Sister Emilia Other ([id number]) Sister anorexia - eating disorder Other ([id number]) Father Bryce Foote colon resection COPD Father Bryce Foote Objective BP 130/78 Pulse 80 Wt 171 lb (77.6 kg) SpO2 96% BMI 29.82 kg/m Physical Exam Constitutional: Appearance: Normal appearance. HENT: Head: Normocephalic and atraumatic. Eyes: General: Right eye: No discharge. Left eye: No discharge. Conjunctiva/sclera: Conjunctivae normal. Cardiovascular: Rate and Rhythm: Normal rate and regular rhythm. Pulmonary: Effort: Pulmonary effort is normal. Breath sounds: Normal breath sounds. Musculoskeletal: Cervical back: Neck supple. Right lower leg: No edema. Left lower leg: No edema. Skin: General: Skin is warm and dry. Neurological: Mental Status: She is alert. Psychiatric: Mood and Affect: Mood normal. Data Reviewed and Summarized Labs: Imaging/Testing: Kelli Danielle Annetta, CERTIFIED NURSING ATTENDANT - TEACHER EDUCATION DIRECTOR * Bharti Pride MA - 09/06/2024 11:20 AM EST Was not running in labs. Added on documented in this [facility]02-19-2025 Evaluation + Plan note* Assessment & Plan Note - RAMAKRISHNA Gibbs CNP - 09/01/2024 4:56 PM EST Associated Problem(s): Other specified hypothyroidism Stable on levothyroxine. [id number] Miscellaneous Notes* Assessment & Plan Note - RAMAKRISHNA Gibbs CNP - 09/01/2024 4:56 PM ESTAssociated Problem(s): Other specified hypothyroidism Stable on levothyroxine. Continue current tx * Assessment & Plan Note - RAMAKRISHNA Gibbs CNP - 09/01/2024 4:55 PM EST Associated Problem(s): Essential hypertension Uncontrolled. Start lisinopril Recheck in 1 week. Not cleared for surgery until BP controlled. documented in this [facility]02-19-2025 Evaluation + Plan note* Assessment & Plan Note - RAMAKRISHNA Gibbs CNP - 09/01/2024 4:55 PM EST Associated Problem(s): Essential hypertension Uncontrolled. Start lisinopril Recheck in 1 week. Not cleared for surgery until BP controlled. [place] [id number] History of Present illness Narrative* Kelli Littlejohn, CERTIFIED NURSING ATTENDANT - TEACHER EDUCATION DIRECTOR - 08/31/2024 2:00 PM EST Images from the original note were not included. [place] [id number] [facility] [address] Dept: [phone] Dept Visit type: Established patient Reason for Visit: Other (Surgical clearance) Assessment and Plan 1. Chronic pain of right knee 2. Preoperative clearance Comments: not cleared until BP controlled. follow up in 1 week. start lisinopril 3. Essential hypertension Assessment & Plan: Uncontrolled. Start lisinopril Recheck in 1 week. Not cleared for surgery until BP controlled. Orders: - lisinopril 10 MG tablet; Take 1 tablet (10 mg) by mouth daily., Starting 08/31/2024, Normal - Microalbumin / creatinine, urine ratio - Comprehensive metabolic panel - CBC auto differential 4. Other specified hypothyroidism Assessment & Plan: Stable on levothyroxine. Continue current tx Orders: - TSH 5. Pure hypercholesterolemia - Lipid panel 6. Vitamin D deficiency - Vitamin D Deficiency Screening (Vit D 25) 7. Screening for diabetes mellitus - Hemoglobin A1c 8. Pulmonary emphysema, unspecified emphysema type (HCC) Comments: sx stable without current pharmacologic tx Follow up in about 6 days (around 09/06/2024) for 40 min preop. Subjective HPI Pt presents for pre-op clearance for R total knee with Dr. Allen at [facility] on 09/17/24 Pre-op testing was completed on 08/24/24 Pt denies CP, SOB, ankle swelling, or orthopnea. Has dyspnea on exertion, at baseline Hx of smoking, quit [address] No pharmacologic tx No asthma Denies DENNIS. Pt has had prior surgeries under anesthesia. Denies any complications. Denies hx of DVT/PE Not currently on any NSAIDs or anti-coagulants. Swapnil's Simple Cardiac RiskIndex: High-risk surgery (intraperitoneal, intrathoracic or suprainguinalvascular surgery): no Coronary artery disease: no Congestive heart failure: no History ofcerebrovascular disease: no Insulin treatment for diabetes mellitus: no Preoperative serumcreatinine > 2.0mg/dL: no Total: 0 Interpretation: 0Points Class I 1 Point Class II 2 Points Class III >=3 Points Class IV Class: 1 BP Readings from Last 3 Encounters: 08/31/24 (!) 142/92 11/13/23 126/84 10/16/23 126/80 Wt Readings from Last 3 Encounters: 08/31/24 173 lb 11.2 oz (78.8 kg) 02/06/24 190 lb (86.2 kg) 11/13/23 198 lb 3 oz (89.9 kg) Lab Results Component Value Date WBC 7.5 09/27/2023 HGB 14.3 09/27/2023 HCT 43.0 09/27/2023 MCV 85.5 09/27/2023 PLT 304 09/27/2023 Lab Results Component Value Date NA 136 09/27/2023 K 4.1 09/27/2023 CL 104 09/27/2023 CO2 28 09/27/2023 BUN 12 09/27/2023 CREATININE 0.64 09/27/2023 CREATININE 0.56 12/27/2019 GLUCOSE 89 09/27/2023 CALCIUM 9.1 09/27/2023 Lab Results Component Value Date CHLPL 186 12/19/2020 CHLPL 186 09/29/2020 CHOL 182 09/27/2023 CHOL 184 08/21/2022 Lab Results Component Value Date TRIG 70 09/27/2023 TRIG 62 08/21/2022 TRIG 74 12/19/2020 Lab Results Component Value Date HDL 57 09/27/2023 HDL 57 08/21/2022 HDL 59 12/19/2020 Lab Results Component Value Date LDLCALC 111 (H) 09/27/2023 LDLCALC 115 (H) 08/21/2022 LDLCALC 112 12/19/2020 Lab Results Component Value Date VLDL 15 12/19/2020 VLDL 15 09/29/2020 Lab Results Component Value Date CHOLHDLRATIO 3 09/27/2023 CHOLHDLRATIO 3 08/21/2022 THYROID STIMULATING HORMONE Date Value Ref Range Status 11/09/2023 1.046 0.465 - 4.680 uIU/mL Final Currently on levothyroxine 88mcg daily Reports BP has been high since Mar 130-150's/80's-90's Review of Systems Constitutional: Negative for activity change and fatigue. Respiratory: Negative for cough and shortness of breath. Cardiovascular: Negative for chest pain. Gastrointestinal: Negative for abdominal pain, nausea and vomiting. Musculoskeletal: Positive for arthralgias and gait problem. Neurological: Negative for dizziness and headaches. Allergies Allergen Reactions Cefadroxil Swelling Outpatient Medications Prior to Visit Medication Sig Dispense Refill cholecalciferol (Vitamin D3) 25 MCG (1000 UT) tablet cyanocobalamin (Vitamin B-12) 100 MCG tablet levothyroxine (Synthroid, Levoxyl) 88 MCG tablet TAKE 1 TABLET BY MOUTH EVERY DAY 90 tablet 3 omega-3 (Fish Oil) 1200 MG capsule thiamine (,Vitamin B-1,) 100 MG tablet Wegovy 2.4 MG/0.75ML solution auto-injector Inject 2.4 mg under the skin every 7 days. Collagen-Vitamin C-Biotin (Collagen 1500/C) 500-50-0.8 MG capsule Tirzepatide-Weight Management (Zepbound) 5 MG/0.5ML solution auto-injector Inject 5 mg under the skin every 7 days. Do not start before December 21, 2023. 6 mL 0 No facility-administered medications prior to visit. Past Medical History: Diagnosis Date Goiter Personal history of tobacco use Pure hypercholesterolemia Not in statin benefit group Thyroid nodule 2007 Social History Tobacco Use Smoking status: Former Current packs/day: 0.00 Average packs/day: 1.5 packs/day for 31.0 years (46.5 ttl pk-yrs) Types: Cigarettes Start date: 12/12/1980 Quit date: 12/13/2011 Years since quittin.7 Passive exposure: Never Smokeless tobacco: Never Substance Use Topics Alcohol use: Yes Alcohol/week: 2.0 standard drinks of alcohol Types: 2 Standard drinks or equivalent per week Comment: 2 Drinks a month Past Surgical History: Procedure Laterality Date SECTION (HISTORICAL) 1987 SECTION, LOW TRANSVERSE KNEE CARTILAGE SURGERY Right 2016 meniscus tears ([facility]) MOUTH SURGERY gums bleeding OTHER SURGICAL HISTORY 08/26/2022 soft tissue mass of right side of abdomen REFRACTIVE SURGERY 1989 THYROIDECTOMY, PARTIAL Right 2007 (surgery at [facility]) TUBAL LIGATION 1988 Family History Problem Relation Name Age of Onset COPD Brother Tayo Foote Other ([id number]) Brother Tayo Foote Hx MRSA infection Diabetes Mother Tammiefloresita Hoffley Hypertension Mother Tammie Qamar Obesity Sister Emilia Diabetes Sister Emilia Hyperlipidemia Sister Emilia Other ([id number]) Sister anorexia - eating disorder Other ([id number]) Father Bryce Foote colon resection COPD Father Bryce Foote Objective BP (!) 142/92 Pulse 72 Wt 173 lb 11.2 oz (78.8 kg) SpO2 98% BMI 30.29 kg/m Physical Exam Constitutional: Appearance: Normal appearance. HENT: Head: Normocephalic and atraumatic. Cardiovascular: Rate and Rhythm: Normal rate and regular rhythm. Pulmonary: Effort: Pulmonary effort is normal. Breath sounds: Normal breath sounds. Skin: General: Skin is warm and dry. Neurological: Mental Status: She is alert. Psychiatric: Mood and Affect: Mood normal. Data Reviewed and Summarized Labs: Imaging/Testing: RAMAKRISHNA Reyes CNP documented in this [facility]02-18-2025 Instructions* Patient Instructions* RAMAKRISHNA Gibbs CNP - 08/31/2024 2:00 PM EST Central scheduling's phone number is [phone]. Please call them at your convenience to schedule. documented in this [facility]01-31-2025 Evaluation note* Diagnosis Onset Date Resolution Status Admit Date Contact with or suspected exposure to other viral communicable disease acute July 2:12pm Influenza due to influenza virus, type A, human acute July 2:12pm [facility] Work Phone: 1(657) 199-383701-09-2025 Telephone encounter Note* Telephone Encounter - Jey Castanon - 07/22/2024 10:04 AM EST Name of caller: Denise Contact phone number: [phone] Relationship to Patient: [facility] Provider: Dr. Silva Practice: [facility] Chief Complaint/Reason for Call: Denise informing she will be faxing over patients surgical clearance forms for her 09/17/24 procedure. Patient has appointment scheduled 08/31/24. Best time of day caller can be reached: any Patient advised that office/PCP has 24-48 business hours to return their call: N/A [id number] Miscellaneous Notes* Telephone Encounter - Jey Castanon - 07/22/2024 10:04 AM EST Name of caller: Denise Contact phone number: [phone] Relationship to Patient: [facility] Provider: Dr. Silva Practice: [facility] Chief Complaint/Reason for Call: Denise informing she will be faxing over patients surgical clearance forms for her 09/17/24 procedure. Patient has appointment scheduled 08/31/24. Best time of day caller can be reached: any Patient advised that office/PCP has 24-48 business hours to return their call: N/A [facility] this [id number] Telephone encounter Note* Telephone Encounter - Rebeca Silva MD - 11/21/2023 2:53 PM EDT Prescription sent If PA approved and starts therapy she will need ov fu in 3 months to determine tolerance effect and if titration indicated [id number] Miscellaneous Notes* Telephone Encounter - Rebeca Silva MD - 11/21/2023 2:53 PM EDT Prescription sent If PA approved and starts therapy she will need ov fu in 3 months to determine tolerance effect and if titration indicated * Telephone Encounter - Carlie Marquez - 11/13/2023 4:11 PM EDT Name of caller: Isis Contact phone number: [phone] Relationship to Patient: patient Provider: Sarah Practice: [facility] Chief Complaint/Reason for Call: Isis called in stating that she discussed medication Zepbound into's meeting with Khalif Cuadra. She stated in order for her insurance company to cover it, they will need a prior authorization. The insurance company provided a number if needed at [phone]. Please advise. Best time of day caller can be reached: any Patient advised that office/PCP has 24-48 business hours to return their call: Yes. documented in this [facility]05-03-2024 History of Present illness Narrative* Reyes Chamberlain RN - 11/14/2023 9:15 AM EDT Pt seen for education, had questions about weight loss medications. She called insurance and statesthat it may be covered with PA. Pt agreeable to out of pocket cost. Has money in health savings acct documented in this [facility]05-02-2024 Telephone encounter Note* Telephone Encounter - Carlie Marquez - 11/13/2023 4:11 PM EDT Name of caller: Isis Contact phone number: [phone] Relationship to Patient: patient Provider: Sarah Practice: [facility] Chief Complaint/Reason for Call: Isis called in stating that she discussed medication Zepbound into's meeting with Khalif Cuadra. She stated in order for her insurance company to cover it, they will need a prior authorization. The insurance [employer] provided a number if needed at [phone]. Please advise. Best time of day caller can be reached: any Patient advised that office/PCP has 24-48 business hours to return their call: Yes. [id number] History of Present illness Narrative* Kelli Littlejohn APRN - ANDREA - 11/13/2023 2:00 PM EDT Images from the original note were not included. [facility] [address] [facility] [address] Dept: [phone] Dept Visit type: Established patient Reason for Visit: Gynecologic Exam (PAP Smear) Assessment and Plan 1. Well woman exam Comments: preventative screenings discussed 2. Screening for cervical cancer - Pap Smear 3. Pneumococcal vaccination declined Follow up in about 6 months (around 05/15/2024) for team sarah. Subjective HPI Pt is here for well woman exam Last PAP: 2020 Hx of abnormal PAP: denies Last mammogram: 11/2022 Hx of abnormal mammogram: denies Does monthly SBE: none Menopause/LMP: approx 9 yrs Family hx of breast cancer/colon cancer/prostate cancer: denies Vaginal concerns: denies Review of Systems Constitutional: Negative for activity change and fatigue. Respiratory: Negative for cough and shortness of breath. Cardiovascular: Negative for chest pain. Gastrointestinal: Negative for diarrhea, nausea and vomiting. Genitourinary: Negative for dysuria and frequency. Neurological: Negative for dizziness and headaches. Allergies Allergen Reactions Cefadroxil Swelling Outpatient Medications Prior to Visit Medication Sig Dispense Refill cholecalciferol (Vitamin D3) 25 MCG (1000 UT) tablet Collagen-Vitamin C-Biotin (Collagen 1500/C) 500-50-0.8 MG capsule cyanocobalamin (Vitamin B-12) 100 MCG tablet levothyroxine (Synthroid, Levoxyl) 88 MCG tablet Take 1 tablet (88 mcg) by mouth daily. 90 tablet 0 omega-3 (Fish Oil) 1200 MG capsule thiamine (,Vitamin B-1,) 100 MG tablet No facility-administered medications prior to visit. Past Medical History: Diagnosis Date Goiter Personal history of tobacco use Pure hypercholesterolemia Not in statin benefit group Thyroid nodule 2007 Social History Tobacco Use Smoking status: Former Packs/day: 1.50 Years: 31.00 Additional pack years: 0.00 Total pack years: 46.50 Types: Cigarettes Quit date: 12/13/2011 Years since quittin.9 Smokeless tobacco: Never Substance Use Topics Alcohol use: Yes Alcohol/week: 2.0 standard drinks of alcohol Types: 2 Standard drinks or equivalent per week Comment: 2 Drinks a month Past Surgical History: Procedure Laterality Date SECTION (HISTORICAL) 1987 SECTION, LOW TRANSVERSE KNEE CARTILAGE SURGERY Right 2016 meniscus tears ([facility]) MOUTH SURGERY gums bleeding OTHER SURGICAL HISTORY 08/26/2022 soft tissue mass of right side of abdomen REFRACTIVE SURGERY 1990 THYROIDECTOMY, PARTIAL Right 2008 (surgery at [facility]) TUBAL LIGATION 1988 Family History Problem Relation Name Age of Onset COPD Brother Tayo Foote Other ([id number]) Brother Tayo Foote Hx MRSA infection Diabetes Mother Tammie Fotoe Hypertension Mother Tammie Foote Obesity Sister Emilia Diabetes Sister Emilia Hyperlipidemia Sister Emilia Other ([id number]) Sister anorexia - eating disorder Other ([id number]) Father Bryec Foote colon resection COPD Father Bryce Foote Objective BP 126/84 (BP Location: Right arm, Patient Position: Sitting, BP Cuff Size: Adult) Pulse 72 Wt 198 lb 3 oz (89.9 kg) SpO2 98% BMI 35.11 kg/m Physical Exam Constitutional: Appearance: Normal appearance. HENT: Head: Normocephalic and atraumatic. Neck: Comments: No thyromegaly Cardiovascular: Rate and Rhythm: Normal rate and regular rhythm. Pulmonary: Effort: Pulmonary effort is normal. Breath sounds: Normal breath sounds. Abdominal: General: Bowel sounds are normal. Palpations: Abdomen is soft. Tenderness: There is no abdominal tenderness. Genitourinary: Exam position: Lithotomy position. Labia: Right: No tenderness or lesion. Left: No tenderness or lesion. Urethra: No prolapse. Vagina: No vaginal discharge or tenderness. Cervix: No cervical motion tenderness or discharge. Uterus: Normal. Adnexa: Right adnexa normal and left adnexa normal. Rectum: No external hemorrhoid. Musculoskeletal: Cervical back: Neck supple. Lymphadenopathy: Cervical: No cervical adenopathy. Lower Body: No right inguinal adenopathy. No left inguinal adenopathy. Skin: General: Skin is warm and dry. Neurological: Mental Status: She is alert. Psychiatric: Mood and Affect: Mood normal. Behavior: Behavior normal. Data Reviewed and Summarized Labs: Imaging/Testing: RAMAKRISHNA Gibbs CNP documented in this [facility]04-04-2024 History of Present illness Narrative* Rebeca Silva MD - 10/16/2023 1:10 PM EDT Images from the original note were not included. [facility] [address] [facility] [address] Dept: [phone] Dept Loc: [phone] Visit type: Andrew Silva MD Reason for Visit: Annual Exam and Discuss Medications Assessment and Plan 1. Wellness examination 2. Postsurgical hypothyroidism Comments: Chronic problem, stable on levothyroxine 88 mcg. Follow-up TSH level ordered no fall longer following with EMERGENCY MEDICAL SERVICE MANAGER clinic/endo Orders: - levothyroxine (Synthroid, Levoxyl) 88 MCG tablet; Take 1 tablet (88 mcg) by mouth daily., Starting Zeynep 10/16/2023, Normal - TSH 3. Class 1 obesity without serious comorbidity with body mass index (BMI) of 34.0 to 34.9 in adult,unspecified obesity type Comments: Chronic problem, stable. Patient struggling with weight loss return for nutrition counseling and fasting insulin sensitivity consider metformin HO given 4. Personal history of tobacco use Comments: Patient would like to continue with annual CT lung screening as long as eligible, approximately 7 years out from smoking cessation Orders: - CT lung screening low dose 5. Pure hypercholesterolemia Comments: Chronic problem, stable. Patient working on therapeutic lifestyle changes 6. Screening for diabetes mellitus - Cardio IQ Insulin Resistance Panel with Score (Quest # [id number]) - Miscellaneous Test 7. Screening mammogram for breast cancer - Bilateral screening mammogram with tomosynthesis 8. Need for prophylactic vaccination against Streptococcus pneumoniae (pneumococcus) - Pneumococcal conjugate vaccine 20-valent IM (PREVNAR 20) 9. Need for shingles vaccine - Zoster, Recombinant (Shingrix) - Zoster, Recombinant (Shingrix) Patient would like to return for Prevnar 20 and Zostavax nurses its or at Visit for pap smear Health Maintenance Due Topic Date Due Zoster Vaccines (1 of 2) Never done Pneumococcal Vaccine: Pediatrics (0 to 5 Years) and At-Risk Patients (6 to 64 Years) (2 of 2 - PCV)12/06/2017 RSV Immunization aged 60 or older (1 - 1-dose 60+ series) Never done COVID-19 Vaccine (3 - 2022-24 season) 2023 TSH Level 08/21/2023 Cervical Cancer Screening 10/04/2023 Depression Screening 10/08/2023 Mammogram 12/04/2023 Follow up if symptoms worsen or fail to improve, for fasting labs soon; return for pap smear soon and to meet with khalif garay). Subjective Patient presents for office visit check up and for follow up of results/medication. HPI Has been taking flexeril for the lats few days from an urgent care from aching pain in shoulder blade - seems to be helping Thinks may be from a surgery about a year ago due to a lipoma removal that was connected to a muscle Has not seen saw filer (that was managing is now retired) dr fernandes in [place] where patient lives No smoking - last was about 7 years ago. Wt last year 173 today 196 Has tried keto but not able to sustain it Review of Systems Constitutional: Positive for unexpected weight change. Negative for chills and fever. Eyes: Negative. Respiratory: Negative. Cardiovascular: Negative. Gastrointestinal: Negative. Genitourinary: Negative. Musculoskeletal: Positive for back pain. Neurological: Negative. Psychiatric/Behavioral: Negative. Allergies Allergen Reactions Cefadroxil Swelling Outpatient Medications Prior to Visit Medication Sig Dispense Refill cholecalciferol (Vitamin D3) 25 MCG (1000 UT) tablet Collagen-Vitamin C-Biotin (Collagen 1500/C) 500-50-0.8 MG capsule cyanocobalamin (Vitamin B-12) 100 MCG tablet omega-3 (Fish Oil) 1200 MG capsule thiamine (,Vitamin B-1,) 100 MG tablet levothyroxine (Synthroid, Levoxyl) 88 MCG tablet Take 1 tablet (88 mcg) by mouth daily. 90 tablet 3 No facility-administered medications prior to visit. Past Medical History: Diagnosis Date Goiter Personal history of tobacco use Pure hypercholesterolemia Not in statin benefit group Thyroid nodule 2007 Social History Tobacco Use Smoking status: Former Packs/day: 1.50 Years: 31.00 Additional pack years: 0.00 Total pack years: 46.50 Types: Cigarettes Quit date: 12/13/2011 Years since quittin.8 Smokeless tobacco: Never Substance Use Topics Alcohol use: Yes Alcohol/week: 2.0 standard drinks of alcohol Types: 2 Standard drinks or equivalent per week Comment: 2 Drinks a month Past Surgical History: Procedure Laterality Date SECTION (HISTORICAL) 1987 SECTION, LOW TRANSVERSE KNEE CARTILAGE SURGERY Right 2016 meniscus tears ([facility]) MOUTH SURGERY gums bleeding OTHER SURGICAL HISTORY 08/26/2022 soft tissue mass of right side of abdomen REFRACTIVE SURGERY 1990 THYROIDECTOMY, PARTIAL Right 2008 (surgery at [facility]) TUBAL LIGATION 1988 Family History Problem Relation Name Age of Onset COPD Brother Tayo Foote Other ([id number]) Brother Tayo Foote Hx MRSA infection Diabetes Mother Tammie Foote Hypertension Mother Tammie Foote Obesity Sister Emilia Diabetes Sister Emilia Hyperlipidemia Sister Emilia Other ([id number]) Sister anorexia - eating disorder Other ([id number]) Father Bryce Foote colon resection COPD Father Bryce Foote Objective BP 126/80 (BP Location: Left arm, Patient Position: Sitting, BP Cuff Size: Adult long) Pulse 79 Ht 5' 3 (1.6 m) Wt 196 lb 12.8 oz (89.3 kg) SpO2 97% BMI 34.86 kg/m Physical Exam Constitutional: General: She is not in acute distress. Appearance: Normal appearance. She is obese. She is not ill-appearing, toxic- appearing or diaphoretic. HENT: Head: Normocephalic and atraumatic. Eyes: Extraocular Movements: Extraocular movements intact. Conjunctiva/sclera: Conjunctivae normal. Neck: Thyroid: No thyroid mass. Cardiovascular: Rate and Rhythm: Normal rate and regular rhythm. Pulses: Normal pulses. Heart sounds: Normal heart sounds. Pulmonary: Effort: Pulmonary effort is normal. Breath sounds: Normal breath sounds. Abdominal: General: Bowel sounds are normal. Palpations: Abdomen is soft. Tenderness: There is no abdominal tenderness. There is no guarding. Musculoskeletal: Cervical back: Neck supple. Right lower leg: No edema. Left lower leg: No edema. Lymphadenopathy: Cervical: No cervical adenopathy. Skin: General: Skin is warm and dry. Capillary Refill: Capillary refill takes less than 2 seconds. Neurological: General: No focal deficit present. Mental Status: She is alert and oriented to person, place, and time. Mental status is at baseline. Cranial Nerves: No cranial nerve deficit. Psychiatric: Mood and Affect: Mood normal. Behavior: Behavior normal. Data Reviewed and Summarized Labs: Lab Results Component Value Date TSH 0.733 08/21/2022 Imaging/Testing: Rebeca Silva MD Dictated using [employer] Naturally Speaking Medical Proof read however unrecognized voicerecognition errors may have occurred. documented in this [place] [address]-11-2023 Telephone encounter Note* Telephone Encounter - Nae Jaime - 10/22/2022 10:11 AM EDT Name of caller: Isis Ulrich Contact phone number: [phone] Relationship to Patient: Patient Provider: Dr. Silva Practice: [facility] Chief Complaint/Reason for Call: Patient is needing the doctor to call in a prescription for thyroid medication. Patient did not have the name of it. Please advise. Best time of day caller can be reached: Any Patient advised that office/PCP has 24-48 business hours to return their call: Any [place] [id number] Miscellaneous Notes* Telephone Encounter - Nae Jaime - 10/22/2022 10:11 AM EDT Name of caller: Isis Ulrich Contact phone number: [phone] Relationship to Patient: Patient Provider: Dr. Silva Practice: [facility] Chief Complaint/Reason for Call: Patient is needing the doctor to call in a prescription for thyroid medication. Patient did not have the name of it. Please advise. Best time of day caller can be reached: Any Patient advised that office/PCP has 24-48 business hours to return their call: Any documented in this [place] [address]-04-2023 Telephone encounter Note* Telephone Encounter - Rachell Jameson RN - 10/15/2022 8:10 AM EDT S: Patient spoke with [facility] nurse regarding +COVID this am. B: Onset of symptoms started yesterday. A: Feeling tired and cold, exposure in the the office at work, nasal congestion, occ dry cough, no SOB or wheezing, headache. No chronic medical conditions per patient. R: Home care at this time for mild sx's, instructed home care for sx's, encourage fluids. Patient understands care advice. No further needs at this time. Patient instructed to call back with new or worsening symptoms. Reason for Disposition [1] COVID-19 diagnosed by doctor (or WARDROBE COORDINATOR/PA) AND [2] mild symptoms (e.g., cough, fever, others) AND [3] no complications or SOB Protocols used: Coronavirus (COVID-19) Diagnosed or [id number] [id number] Miscellaneous Notes* Telephone Encounter - Rachell Jameson RN - 10/15/2022 8:10 AM EDT S: Patient spoke with [facility] nurse regarding +COVID this am. B: Onset of symptoms started yesterday. A: Feeling tired and cold, exposure in the the office at work, nasal congestion, occ dry cough, no SOB or wheezing, headache. No chronic medical conditions per patient. R: Home care at this time for mild sx's, instructed home care for sx's, encourage fluids. Patient understands care advice. No further needs at this time. Patient instructed to call back with new or worsening symptoms. Reason for Disposition [1] COVID-19 diagnosed by doctor (or WARDROBE COORDINATOR/PA) AND [2] mild symptoms (e.g., cough, fever, others) AND [3] no complications or SOB Protocols used: Coronavirus (COVID-19) Diagnosed or [id number] documented in this [facility]03-27-2023 History of Present illness Narrative* Rebeca Silva MD - 10/07/2022 2:30 PM EDT Images from the original note were not included. [facility] [address] [facility] [address] Dept: [phone] Dept Loc: [phone] Visit type: EstablishedRebeca Silva MD Reason for Visit: Annual Exam and Discuss Medications Assessment and Plan 1. Wellness examination - CBC auto differential - Comprehensive metabolic panel - Microalbumin / creatinine urine ratio 2. Class 1 obesity due to excess calories without serious comorbidity with body mass index (BMI) of30.0 to 30.9 in adult 3. Vitamin D deficiency Comments: new problem, uncontrolled- recent start of vit d 1000 iu continue Orders: - Vitamin D 25 hydroxy 4. Pure hypercholesterolemia - Lipid panel 5. Screen for colon cancer Comments: summer cologuard ordered Orders: - Cologuard colon cancer screening 6. Pulmonary emphysema, unspecified emphysema type (HCC) Comments: chronic problem, stable asxic - last smoked in 2011 - continue yearly screening ct 7. Lung nodule seen on imaging study 8. Vaccine counseling 9. Primary osteoarthritis of knee, unspecified laterality 10. Screening mammogram for breast cancer - Bilateral screening mammogram 11. Personal history of tobacco use - CT lung screening follow up low dose 12. Screening for diabetes mellitus - Hemoglobin A1c Discussed age appropriate wellness and prevention. Reviewed/ordered routine labs. Follow up in about 1 year (around 10/08/2023), or if symptoms worsen or fail to improve, for fastinglabs prior to wellness 2023 - colon screening due this summer ordered . Subjective Patient presents for office visit check up and for follow up of results/medication. HPI 3 year anniversary of husbands was in July Reports ongoing knee pain Recovering from lipoma removal Breathing is ok - gets winded if stairs Plans to go on vacation to beach soon Sees specialist for saw filer/thyroid monitoring Vaccines discussed she wants to get done at pharmacy in [place] She recently started vit d 1000 international units STOP-BANG DENNIS Questionnaire Yes = 1 point; No = 0 point Snoring yes DaytimeTired/Fatigued/Hypersomnalence no Observed Apnea/choking-gasping episodes no Hypertension no BMI > 35 Body mass index is 30.7 kg/m . no > 50 yo yes Shirt collar > 17in. M, 16 in. F no Male Gender no Score Low risk 0-2 Any prior sleep study/dennis diagnosis: none Review of Systems Constitutional: Negative. HENT: Negative. Respiratory: Negative. Cardiovascular: Negative. Gastrointestinal: Negative. Genitourinary: Negative. Musculoskeletal: Knee pain - intermittent - bone on bone per surgeon - reports was given some oral steroids in the past - not interested in injections - has home therapy exercises can do - rare nsaid use Psychiatric/Behavioral: Snores at times Allergies Allergen Reactions Cefadroxil Swelling Outpatient Medications Prior to Visit Medication Sig Dispense Refill cholecalciferol (Vitamin D3) 25 MCG (1000 UT) tablet Collagen-Vitamin C-Biotin (Collagen 1500/C) 500-50-0.8 MG capsule cyanocobalamin (Vitamin B-12) 100 MCG tablet levothyroxine (Synthroid, Levoxyl) 88 MCG tablet Take 88 mcg by mouth daily. No facility-administered medications prior to visit. Past Medical History: Diagnosis Date Goiter Personal history of tobacco use Pure hypercholesterolemia Not in statin benefit group Thyroid nodule 2007 Social History Tobacco Use Smoking status: Former Packs/day: 1.50 Years: 31.00 Pack years: 46.50 Types: Cigarettes Quit date: 12/13/2011 Years since quittin.8 Smokeless tobacco: Never Substance Use Topics Alcohol use: Yes Alcohol/week: 2.0 standard drinks Types: 2 Standard drinks or equivalent per week Comment: 2 Drinks a month Past Surgical History: Procedure Laterality Date SECTION (HISTORICAL) 1987 SECTION, LOW TRANSVERSE KNEE CARTILAGE SURGERY Right 2016 meniscus tears ([facility]) MOUTH SURGERY gums bleeding OTHER SURGICAL HISTORY 08/26/2022 soft tissue mass of right side of abdomen REFRACTIVE SURGERY 1989 THYROIDECTOMY, PARTIAL Right 2007 (surgery at [facility]) TUBAL LIGATION 1988 Family History Problem Relation Name Age of Onset COPD Brother Tayo Foote Other ([id number]) Brother Tayo Foote Hx MRSA infection Diabetes Mother Tammie Foote Hypertension Mother Tammie Foote Obesity Sister Emilia Diabetes Sister Emilia Hyperlipidemia Sister Emilia Other ([id number]) Sister anorexia - eating disorder Other ([id number]) Father Bryce Foote colon resection COPD Father Bryce Foote Objective BP 128/78 (BP Location: Left arm, Patient Position: Sitting, BP Cuff Size: Large adult) Pulse 75 Ht 5' 3 (1.6 m) Wt 173 lb 4.8 oz (78.6 kg) SpO2 98% BMI 30.70 kg/m Physical Exam Constitutional: General: She is not in acute distress. Appearance: Normal appearance. She is obese. She is not ill-appearing, toxic- appearing or diaphoretic. HENT: Head: Normocephalic and atraumatic. Eyes: Extraocular Movements: Extraocular movements intact. Conjunctiva/sclera: Conjunctivae normal. Cardiovascular: Rate and Rhythm: Normal rate and regular rhythm. Pulses: Normal pulses. Heart sounds: Normal heart sounds. Pulmonary: Effort: Pulmonary effort is normal. Breath sounds: Normal breath sounds. Abdominal: General: Bowel sounds are normal. Palpations: Abdomen is soft. Tenderness: There is no abdominal tenderness. There is no guarding. Musculoskeletal: Cervical back: Neck supple. Right lower leg: No edema. Left lower leg: No edema. Skin: General: Skin is warm and dry. Capillary Refill: Capillary refill takes less than 2 seconds. Neurological: General: No focal deficit present. Mental Status: She is alert and oriented to person, place, and time. Mental status is at baseline. Cranial Nerves: No cranial nerve deficit. Psychiatric: Mood and Affect: Mood normal. Behavior: Behavior normal. Data Reviewed and Summarized Labs: Low vitamin D level Slightly elevated LDL cholesterol Normal blood counts Immune to measles mumps rubella Normal screening for HIV and hepatitis B and C No immunity to hepatitis B Thyroid function within normal range Normal blood sugar testing Normal kidney and liver function testing Imaging/Testing: Rebeca Silva MD documented in this [facility]03-27-2023 History of Present illness Narrative* Rebeca Silva MD - 10/07/2022 2:30 PM EDT Images from the original note were not included. [facility] [address] [facility] [address] Dept: [phone] Dept Loc: [phone] Visit type: Andrew Silva MD Reason for Visit: Annual Exam and Discuss Medications Assessment and Plan 1. Wellness examination - CBC auto differential - Comprehensive metabolic panel - Microalbumin / creatinine urine ratio 2. Class 1 obesity due to excess calories without serious comorbidity with body mass index (BMI) of30.0 to 30.9 in adult 3. Vitamin D deficiency Comments: new problem, uncontrolled- recent start of vit d 1000 iu continue Orders: - Vitamin D 25 hydroxy 4. Pure hypercholesterolemia - Lipid panel 5. Screen for colon cancer Comments: summer cologuard ordered Orders: - Cologuard colon cancer screening 6. Pulmonary emphysema, unspecified emphysema type (HCC) Comments: chronic problem, stable asxic - last smoked in 2011 - continue yearly screening ct 7. Lung nodule seen on imaging study 8. Vaccine counseling 9. Primary osteoarthritis of knee, unspecified laterality 10. Screening mammogram for breast cancer - Bilateral screening mammogram 11. Personal history of tobacco use - CT lung screening follow up low dose 12. Screening for diabetes mellitus - Hemoglobin A1c Discussed age appropriate wellness and prevention. Reviewed/ordered routine labs. Follow up in about 1 year (around 10/08/2023), or if symptoms worsen or fail to improve, for fastinglabs prior to wellness 2023 - colon screening due this summer ordered . Subjective Patient presents for office visit check up and for follow up of results/medication. HPI 3 year anniversary of husbands was in July Reports ongoing knee pain Recovering from lipoma removal Breathing is ok - gets winded if stairs Plans to go on vacation to beach soon Sees specialist for saw filer/thyroid monitoring Vaccines discussed she wants to get done at pharmacy in [place] She recently started vit d 1000 international units STOP-BANG DENNIS Questionnaire Yes = 1 point; No = 0 point Snoring yes DaytimeTired/Fatigued/Hypersomnalence no Observed Apnea/choking-gasping episodes no Hypertension no BMI > 35 Body mass index is 30.7 kg/m . no > 50 yo yes Shirt collar > 17in. M, 16 in. F no Male Gender no Score Low risk 0-2 Any prior sleep study/dennis diagnosis: none Review of Systems Constitutional: Negative. HENT: Negative. Respiratory: Negative. Cardiovascular: Negative. Gastrointestinal: Negative. Genitourinary: Negative. Musculoskeletal: Knee pain - intermittent - bone on bone per surgeon - reports was given some oral steroids in the past - not interested in injections - has home therapy exercises can do - rare nsaid use Psychiatric/Behavioral: Snores at times Allergies Allergen Reactions Cefadroxil Swelling Outpatient Medications Prior to Visit Medication Sig Dispense Refill cholecalciferol (Vitamin D3) 25 MCG (1000 UT) tablet Collagen-Vitamin C-Biotin (Collagen 1500/C) 500-50-0.8 MG capsule cyanocobalamin (Vitamin B-12) 100 MCG tablet levothyroxine (Synthroid, Levoxyl) 88 MCG tablet Take 88 mcg by mouth daily. No facility-administered medications prior to visit. Past Medical History: Diagnosis Date Goiter Personal history of tobacco use Pure hypercholesterolemia Not in statin benefit group Thyroid nodule 2007 Social History Tobacco Use Smoking status: Former Packs/day: 1.50 Years: 31.00 Pack years: 46.50 Types: Cigarettes Quit date: 12/13/2011 Years since quittin.8 Smokeless tobacco: Never Substance Use Topics Alcohol use: Yes Alcohol/week: 2.0 standard drinks Types: 2 Standard drinks or equivalent per week Comment: 2 Drinks a month Past Surgical History: Procedure Laterality Date SECTION (HISTORICAL) 1987 SECTION, LOW TRANSVERSE KNEE CARTILAGE SURGERY Right 2016 meniscus tears ([facility]) MOUTH SURGERY gums bleeding OTHER SURGICAL HISTORY 08/26/2022 soft tissue mass of right side of abdomen REFRACTIVE SURGERY 1989 THYROIDECTOMY, PARTIAL Right 2007 (surgery at [facility]) TUBAL LIGATION 1987 Family History Problem Relation Name Age of Onset COPD Brother Tayo Foote Other ([id number]) Brother Tayo Foote Hx MRSA infection Diabetes Mother Tammie Foote Hypertension Mother Tammie Foote Obesity Sister Emilia Diabetes Sister Emilia Hyperlipidemia Sister Emilia Other ([id number]) Sister anorexia - eating disorder Other ([id number]) Father Bryce Foote colon resection COPD Father Bryce Foote Objective BP 128/78 (BP Location: Left arm, Patient Position: Sitting, BP Cuff Size: Large adult) Pulse 75 Ht 5' 3 (1.6 m) Wt 173 lb 4.8 oz (78.6 kg) SpO2 98% BMI 30.70 kg/m Physical Exam Constitutional: General: She is not in acute distress. Appearance: Normal appearance. She is obese. She is not ill-appearing, toxic- appearing or diaphoretic. HENT: Head: Normocephalic and atraumatic. Eyes: Extraocular Movements: Extraocular movements intact. Conjunctiva/sclera: Conjunctivae normal. Cardiovascular: Rate and Rhythm: Normal rate and regular rhythm. Pulses: Normal pulses. Heart sounds: Normal heart sounds. Pulmonary: Effort: Pulmonary effort is normal. Breath sounds: Normal breath sounds. Abdominal: General: Bowel sounds are normal. Palpations: Abdomen is soft. Tenderness: There is no abdominal tenderness. There is no guarding. Musculoskeletal: Cervical back: Neck supple. Right lower leg: No edema. Left lower leg: No edema. Skin: General: Skin is warm and dry. Capillary Refill: Capillary refill takes less than 2 seconds. Neurological: General: No focal deficit present. Mental Status: She is alert and oriented to person, place, and time. Mental status is at baseline. Cranial Nerves: No cranial nerve deficit. Psychiatric: Mood and Affect: Mood normal. Behavior: Behavior normal. Data Reviewed and Summarized Labs: Low vitamin D level Slightly elevated LDL cholesterol Normal blood counts Immune to measles mumps rubella Normal screening for HIV and hepatitis B and C No immunity to hepatitis B Thyroid function within normal range Normal blood sugar testing Normal kidney and liver function testing Imaging/Testing: Rebeca Silva MD documented in this [facility]03-02-2023 History of Present illness Narrative* Robbi Cook MD - 09/12/2022 9:30 AM EST Well healed no seroma check in 4 weeks documented in this [facility]02-13-2023 Miscellaneous Notes* Op Note - Robbi Cook MD - 08/26/2022 10:17 AM EST Images from the original note were not included. DEPARTMENT OF SURGERY OPERATIVE NOTE DATE OF PROCEDURE: 08/26/2022 ATTENDING SURGEON: Robbi Ho MD HEEL FINISHER: sam PREOPERATIVE DIAGNOSIS: Soft tissue mass of the right abdominal wall size is 30 cm POSTOPERATIVE DIAGNOSIS: Same OPERATION: Excision soft tissue mass abdominal wall ANESTHESIA: General ESTIMATED BLOOD LOSS: Senegalese HISTORY: Patient presents with a growing soft tissue mass of the right abdominal wall present for many many years 30 x 30 cm PROCEDURE: Explained the procedure the risks of infection bleeding recurrence hematoma seroma brought to surgery given a general anesthetic we elliptically excised some skin over the mass 30 cm in size cauterize all bleeding sites and closed it with 3-0 Vicryl subcu and subcuticular sterile dressings were applied patient tolerated the operation well was taken recovery stable documented in this [address]13-2023 Note* Op Note - Robbi Cook MD - 08/26/2022 10:17 AM EST Images from the original note were not included. DEPARTMENT OF SURGERY OPERATIVE NOTE DATE OF PROCEDURE: 08/26/2022 ATTENDING SURGEON: Robbi Ho MD HEEL FINISHER: sam PREOPERATIVE DIAGNOSIS: Soft tissue mass of the right abdominal wall size is 30 cm POSTOPERATIVE DIAGNOSIS: Same OPERATION: Excision soft tissue mass abdominal wall ANESTHESIA: General ESTIMATED BLOOD LOSS: Senegalese HISTORY: Patient presents with a growing soft tissue mass of the right abdominal wall present for many many years 30 x 30 cm PROCEDURE: Explained the procedure the risks of infection bleeding recurrence hematoma seroma brought to surgery given a general anesthetic we elliptically excised some skin over the mass 30 cm in size cauterize all bleeding sites and closed it with 3-0 Vicryl subcu and subcuticular sterile dressings were applied patient tolerated the operation well was taken recovery stable [facility] [employer] Work Phone: 1(513) 356-419402-13-2023 Note* Op Note - Robbi Cook MD - 08/26/2022 10:17 AM EST Images from the original note were not included. DEPARTMENT OF SURGERY OPERATIVE NOTE DATE OF PROCEDURE: 08/26/2022 ATTENDING SURGEON: Robbi Ho MD HEEL FINISHER: sam PREOPERATIVE DIAGNOSIS: Soft tissue mass of the right abdominal wall size is 30 cm POSTOPERATIVE DIAGNOSIS: Same OPERATION: Excision soft tissue mass abdominal wall ANESTHESIA: General ESTIMATED BLOOD LOSS: Senegalese HISTORY: Patient presents with a growing soft tissue mass of the right abdominal wall present for many many years 30 x 30 cm PROCEDURE: Explained the procedure the risks of infection bleeding recurrence hematoma seroma brought to surgery given a general anesthetic we elliptically excised some skin over the mass 30 cm in size cauterize all bleeding sites and closed it with 3-0 Vicryl subcu and subcuticular sterile dressings were applied patient tolerated the operation well was taken recovery stable [employer] Phone: 1(937) 829-868802-13-2023 Hospital Discharge instructions* Discharge Instructions* Dustin Merino MD - 08/26/2022 8:57 AM EST 1. Call the office for an appointment within 7-10 days 2. Shower and remove dressing in 1-2 days 3. Expect the surrounding area to bruise and swell documented in this [facility]02-02-2023 Telephone encounter Note* Telephone Encounter - RAMAKRISHNA Blanco CNP - 08/15/2022 7:45 AM EST Noted [facility] [id number] Miscellaneous Notes* Telephone Encounter - RAMAKRISHNA Blanco CNP - 08/15/2022 7:45 AM EST Noted * Telephone Encounter - Greta Almazan MA - 08/14/2022 4:40 PM EST She stated she has not had any problems; she will hold off from inhalers at this time and discuss at her next appointment * Telephone Encounter - RAMAKRISHNA Blanco CNP - 08/13/2022 1:[address] shows emphysema and one lung nodule that needs to be followed yearly. Is she interested in starting a daily inhaler that will help with the emphysema? documented in this [facility]02-01-2023 Telephone encounter Note* Telephone Encounter - Greta Almazan MA - 08/14/2022 4:40 PM EST She stated she has not had any problems; she will hold off from inhalers at this time and discuss at her next appointment [id number] Telephone encounter Note* Telephone Encounter - RAMAKRISHNA Blanco CNP - 08/13/2022 1:[address] shows emphysema and one lung nodule that needs to be followed yearly. Is she interested in starting a daily inhaler that will help with the emphysema? [id number] History of Present illness Narrative* Robbi Cook MD - 08/13/2022 10:15 AM EST Images from the original note were not included. HPI/IMPRESSION: Soft Tissue Mass: Patient presents for evaluation of a soft tissue mass. Mass is located on the right flank . Mass was first noticed 10 years ago. Mass has 12 cm size in size. Mass has associated symptoms of moderate tenderness. Past Medical History: Diagnosis Date Goiter Personal history of tobacco use Pure hypercholesterolemia Not in statin benefit group Thyroid nodule 2007 Past Surgical History: Procedure Laterality Date SECTION (HISTORICAL) 1987 SECTION, LOW TRANSVERSE KNEE CARTILAGE SURGERY Right 2016 meniscus tears ([facility]) MOUTH SURGERY gums bleeding REFRACTIVE SURGERY 1989 THYROIDECTOMY, PARTIAL Right 2007 (surgery at [facility]) TUBAL LIGATION 1987 Current Outpatient Medications Medication Sig Dispense Refill levothyroxine (Synthroid, Levoxyl) 88 MCG tablet Take 88 mcg by mouth daily. No current facility-administered medications for this visit. No Known Allergies Reviewof Systems: Review of Systems All other systems reviewed and are negative. Physical Exam: BP 119/85 (BP Location: Right arm, Patient Position: Sitting, BP Cuff Size: Large adult) Pulse 73 Ht 5' 3 (1.6 m) Wt 174 lb 6.4 oz (79.1 kg) BMI 30.89 kg/m Physical Exam Abdominal: Comments: 12 cm mass of flank Treatment: Patient will be scheduled for excision of mass. Patient counseled on risks,benefits, andalternatives of treatment plan at length while in the office today. Patient states an understandingand willingness to proceed with plan. No orders of the defined types were placed in this encounter. Follow Up: Follow up for after surgery. Encounter Diagnoses Name Primary? Lipoma of chest wall Mass of soft tissue of abdomen Yes Robbi Ho MD, @[email or web address]@ documented in this [facility]01-17-2023 History of Present illness Narrative* Liliana Matthews APRN - TEACHER EDUCATION DIRECTOR - 07/30/2022 10:10 AM EST Images from the original note were not included. [place] [id number] [facility] [id number] Dept: [phone] Dept Visit type:Established patient Reason for Visit: Mass (Flank/ribs 17-20 years) @[email or web address]@ Assessment and Plan 1. Lipoma of chest wall [place] [facility] [place] - Robbi Ho MD Will refer to surgeon for removal of lipoma. 2. Personal history of tobacco use - CT lung screening low dose Discussed screening for lung cancer. Would like to pursue this. 3. Encounter for screening mammogram for malignant neoplasm of breast - Bilateral screening mammogram Make a FU appointment with PCP as she has not been seen for a few years. Subjective Here today for complaints of a lump on the right side. Has lost 40 pounds in the last couple of months. The lump does seem to be getting larger. Has had the area for many years-diagnosed with a lipoma many years ago. Did have imaging at the time of the diagnosis-thinks had a CT. Area has become tender at times. Interested in getting it removed. Is interested in lung cancer screening. Quit smoking 6 years ago-smoked 1-2 packs per day for 31 years. Previously had been seeing her EMERGENCY MEDICAL SERVICE MANAGER for physicals and labwork-he recently retired so she needs to make a FU here. Working on her diet for weight loss-watching her carbs closely. Review of Systems Respiratory: Negative for cough, shortness of breath and wheezing. Cardiovascular: Negative for chest pain. Gastrointestinal: Negative for abdominal pain, blood in stool, constipation, diarrhea, nausea and vomiting. Neurological: Negative for dizziness and headaches. No Known Allergies Outpatient Medications Prior to Visit Medication Sig Dispense Refill levothyroxine (Synthroid, Levoxyl) 88 MCG tablet Take 88 mcg by mouth daily. Arnuity Ellipta 100 MCG/ACT inhaler TAKE 1 PUFF BY MOUTH EVERY DAY No facility-administered medications prior to visit. Past Medical History: Diagnosis Date Goiter Personal history of tobacco use Pure hypercholesterolemia Not in statin benefit group Social History Tobacco Use Smoking status: Former Packs/day: 1.00 Types: Cigarettes Quit date: 12/13/2011 Years since quittin.6 Smokeless tobacco: Never Substance Use Topics Alcohol use: No Past Surgical History: Procedure Laterality Date SECTION (HISTORICAL) 1987 KNEE CARTILAGE SURGERY Right 2016 meniscus tears ([facility]) MOUTH SURGERY gums bleeding REFRACTIVE SURGERY 1989 THYROIDECTOMY, PARTIAL Right 2007 (surgery at [facility]) TUBAL LIGATION 1987 Family History Problem Relation Name Age of Onset COPD Brother Diabetes Mother Obesity Sister Diabetes Sister Hyperlipidemia Sister Other ([id number]) Sister anorexia - eating disorder Other ([id number]) Father colon resection Other ([id number]) Brother Hx MRSA infection COPD Father Objective BP 138/86 (BP Location: Right arm, Patient Position: Sitting, BP Cuff Size: Adult) Pulse 59 Temp 36.3 C (97.3 F) Resp 18 Wt 170 lb 12.8 oz (77.5 kg) SpO2 100% BMI 30.26 kg/m Physical Exam Vitals and nursing note reviewed. Constitutional: Appearance: Normal appearance. Cardiovascular: Rate and Rhythm: Normal rate and regular rhythm. Pulses: Normal pulses. Heart sounds: Normal heart sounds. Pulmonary: Effort: Pulmonary effort is normal. Breath sounds: Normal breath sounds. Chest: Comments: Large lipoma right chest wall. Slightly tender to palpation. Mobile. Neurological: Mental Status: She is alert. Data Reviewed and Summarized Labs: Imaging/Testing: RAMAKRISHNA Blanco CNP documented in this [facility]01-04-2023 Telephone encounter Note* Telephone Encounter - Nancy Kerns RN - 07/17/2022 5:12 PM EST S: Patient spoke with CAC nurse regarding lump on side B: Onset of symptoms/concern has been present for many years. A: Patient states she has had for a lump years and was evaluated and told it was a lipoma. States she recently lost 40 pounds and it has grown in size. States it is a smooth bump about 1/2 the size of a baseball on her right side. Denies pain, fever, redness or look of infection R: Insurance verified. Declined offered appointment on 07/24. Appointment scheduled on 07/30 with Marianne Matthews. Advised to wear mask, bring IS and insurance cards and list of current medications. Patientunderstands care advice. No further needs at this time. Patient instructed to call back with new orworsening symptoms. Reason for Disposition [1] Small swelling or lump AND [2] unexplained AND [3] present > 1 week Answer Assessment - Initial Assessment Questions 1. APPEARANCE of SWELLING: What does it look like? (e.g., lymph node, insect bite, mole) Smooth bump 2. SIZE: How large is the swelling? (e.g., inches, cm; or compare to size of pinhead, tip of pen,eraser, coin, pea, grape, ping pong ball) 1/2 size of baseball 3. LOCATION: Where is the swelling located? Above waist on right side 4. ONSET: When did the swelling start? Many years ago, but recently seems much larger-in the last week 5. PAIN: Is it painful? If Yes, ask: How much? no 6. ITCH: Does it itch? If Yes, ask: How much? no 7. CAUSE: What do you think caused the swelling? Was told it was a lipoma years ago 8. OTHER SYMPTOMS: Do you have any other symptoms? (e.g., fever) no Protocols used: Skin Lump or Localized [id number] [id number] Miscellaneous Notes* Telephone Encounter - Nancy Kerns RN - 07/17/2022 5:12 PM EST S: Patient spoke with [facility] nurse regarding lump on side B: Onset of symptoms/concern has been present for many years. A: Patient states she has had for a lump years and was evaluated and told it was a lipoma. States she recently lost 40 pounds and it has grown in size. States it is a smooth bump about 1/2 the size of a baseball on her right side. Denies pain, fever, redness or look of infection R: Insurance verified. Declined offered appointment on 07/24. Appointment scheduled on 07/30 with Marianne Matthews. Advised to wear mask, bring IS and insurance cards and list of current medications. Patientunderstands care advice. No further needs at this time. Patient instructed to call back with new orworsening symptoms. Reason for Disposition [1] Small swelling or lump AND [2] unexplained AND [3] present > 1 week Answer Assessment - Initial Assessment Questions 1. APPEARANCE of SWELLING: What does it look like? (e.g., lymph node, insect bite, mole) Smooth bump 2. SIZE: How large is the swelling? (e.g., inches, cm; or compare to size of pinhead, tip of pen,eraser, coin, pea, grape, ping pong ball) 1/2 size of baseball 3. LOCATION: Where is the swelling located? Above waist on right side 4. ONSET: When did the swelling start? Many years ago, but recently seems much larger-in the last week 5. PAIN: Is it painful? If Yes, ask: How much? no 6. ITCH: Does it itch? If Yes, ask: How much? no 7. CAUSE: What do you think caused the swelling? Was told it was a lipoma years ago 8. OTHER SYMPTOMS: Do you have any other symptoms? (e.g., fever) no Protocols used: Skin Lump or Localized [id number] * Telephone Encounter - Nancy Kerns RN - 07/17/2022 4:50 PM EST S: Intake note states: baseball size lump on side, has gotten bigger over time B: no answer communications writer back A: no answer communications writer back R: no voicemail set up, unable to leave message. Reason for Disposition No answer. First attempt to contact caller. Follow-up call scheduled within 15 minutes. Protocols used: No Contact or Duplicate Contact [id number] documented in this [facility]01-04-2023 Telephone encounter Note* Telephone Encounter - Nancy Kerns RN - 07/17/2022 4:50 PM EST S: Intake note states: baseball size lump on side, has gotten bigger over time B: no answer communications writer back A: no answer communications writer back R: no voicemail set up, unable to leave message. Reason for Disposition No answer. First attempt to contact caller. Follow-up call scheduled within 15 minutes. Protocols used: No Contact or Duplicate Contact Uhcq-KRAAN-HP [facility] noteNo assessment information availableWBethesda North Hospital Work Phone: Evaluation note* Diagnosis Wellness examination- Primary Class 1 obesity due to excess calories without serious comorbidity with body mass index (BMI) of 30.0 to 30.9 in adult Vitamin D deficiency Pure hypercholesterolemia Screen for colon cancer Special screening for malignant neoplasms, colon Pulmonary emphysema, unspecified emphysema type (HCC) Lung nodule seen on imaging study Vaccine counseling Primary osteoarthritis of knee, unspecified laterality Screening mammogram for breast cancer Personal history of tobacco use Personal history of tobacco use, presenting hazards to health Screening for diabetes mellitus documented [facility] [place] [facility]* Diagnosis Wellness examination- Primary Class 1 obesity due to excess calories without serious comorbidity with body mass index (BMI) of 30.0 to 30.9 in adult Vitamin D deficiency Pure hypercholesterolemia Screen for colon cancer Special screening for malignant neoplasms, colon Pulmonary emphysema, unspecified emphysema type (HCC) Lung nodule seen on imaging study Vaccine counseling Primary osteoarthritis of knee, unspecified laterality Screening mammogram for breast cancer Personal history of tobacco use Personal history of tobacco use, presenting hazards to health Screening for diabetes mellitus documented [facility] encounter [facility]* Diagnosis Personal history of tobacco use Personal history of tobacco use, presenting hazards to health documented in this encounter [facility]* Diagnosis Wellness examination- Primary Postsurgical hypothyroidism Class 1 obesity without serious comorbidity with body mass index (BMI) of 34.0 to 34.9 in adult, unspecified obesity type Personal history of tobacco use Personal history of tobacco use, presenting hazards to health Pure hypercholesterolemia Screening for diabetes mellitus Screening mammogram for breast cancer Need for prophylactic vaccination against Streptococcus pneumoniae (pneumococcus) Need for prophylactic vaccination against streptococcus pneumoniae (pneumococcus) Need for shingles vaccine Need for prophylactic vaccination and inoculation against varicella documented in this encounter [facility]* Diagnosis Well woman exam- Primary Routine general medical examination at a health care facility Screening for cervical cancer Screening for malignant neoplasm of the cervix Pneumococcal vaccination declined documented in this encounter [facility]* Diagnosis Class 2 obesity with body mass index (BMI) of 35.0 to 35.9 in adult, unspecified obesity type, unspecified whether serious comorbidity present- Primary documented in this encounter [facility]* Diagnosis Postsurgical hypothyroidism documented in this encounter [facility]* Diagnosis Screening mammogram for breast cancer documented in this encounter [facility]* Diagnosis Lipoma of chest wall- Primary Personal history of tobacco use Personal history of tobacco use, presenting hazards to health Encounter for screening mammogram for malignant neoplasm of breast documented in this encounter [facility]* Diagnosis Personal history of tobacco use Personal history of tobacco use, presenting hazards to health documented in this encounter [facility]* Diagnosis Mass of soft tissue of abdomen- Primary Lipoma of chest wall Other specified soft tissue disorders documented in this encounter [facility]* Diagnosis Mass of soft tissue of abdomen- Primary Other specified soft tissue disorders [facility]* Diagnosis Lipoma of chest wall- Primary [facility]* Diagnosis Chronic pain of right knee- Primary Preoperative clearance Unspecified pre-operative examination Essential hypertension Unspecified essential hypertension Other specified hypothyroidism Pure hypercholesterolemia Vitamin D deficiency Screening for diabetes mellitus Pulmonary emphysema, unspecified emphysema type (HCC) [facility]* Diagnosis Chronic pain of right knee- Primary Preoperative clearance Unspecified pre-operative examination Essential hypertension Unspecified essential hypertension Other specified hypothyroidism Pure hypercholesterolemia Vitamin D deficiency Screening for diabetes mellitus Pulmonary emphysema, unspecified emphysema type (HCC) Chronic pain of right knee- Primary Preoperative clearance Unspecified pre-operative examination Essential hypertension Unspecified essential hypertension Other emphysema (HCC) Other emphysema Pure hypercholesterolemia [facility]* Diagnosis Chronic pain of right knee- Primary Preoperative clearance Unspecified pre-operative examination Essential hypertension Unspecified essential hypertension Other specified hypothyroidism Pure hypercholesterolemia Vitamin D deficiency Screening for diabetes mellitus Pulmonary emphysema, unspecified emphysema type (HCC) Chronic pain of right knee- Primary Preoperative clearance Unspecified pre-operative examination Essential hypertension Unspecified essential hypertension Other emphysema (HCC) Other emphysema Pure hypercholesterolemia Essential hypertension Unspecified essential hypertension [facility]* Diagnosis Chronic pain of right knee- Primary Preoperative clearance Unspecified pre-operative examination Essential hypertension Unspecified essential hypertension Other specified hypothyroidism Pure hypercholesterolemia Vitamin D deficiency Screening for diabetes mellitus Pulmonary emphysema, unspecified emphysema type (HCC) Chronic pain of right knee- Primary Preoperative clearance Unspecified pre-operative examination Essential hypertension Unspecified essential hypertension Other emphysema (HCC) Other emphysema Pure hypercholesterolemia Essential hypertension Unspecified essential hypertension [facility]* Diagnosis Chronic pain of right knee- Primary Preoperative clearance Unspecified pre-operative examination Essential hypertension Unspecified essential hypertension Other specified hypothyroidism Pure hypercholesterolemia Vitamin D deficiency Screening for diabetes mellitus Pulmonary emphysema, unspecified emphysema type (HCC) Chronic pain of right knee- Primary Preoperative clearance Unspecified pre-operative examination Essential hypertension Unspecified essential hypertension Other emphysema (HCC) Other emphysema Pure hypercholesterolemia Acute deep vein thrombosis (DVT) of right lower extremity, unspecified vein (HCC)- Primary History of total knee arthroplasty, right [facility]* Diagnosis Chronic pain of right knee- Primary Preoperative clearance Unspecified pre-operative examination Essential hypertension Unspecified essential hypertension Other specified hypothyroidism Pure hypercholesterolemia Vitamin D deficiency Screening for diabetes mellitus Pulmonary emphysema, unspecified emphysema type (HCC) Chronic pain of right knee- Primary Preoperative clearance Unspecified pre-operative examination Essential hypertension Unspecified essential hypertension Other emphysema (HCC) Other emphysema Pure hypercholesterolemia Postsurgical hypothyroidism [facility]* Diagnosis Chronic pain of right knee- Primary Preoperative clearance Unspecified pre-operative examination Essential hypertension Unspecified essential hypertension Other specified hypothyroidism Pure hypercholesterolemia Vitamin D deficiency Screening for diabetes mellitus Pulmonary emphysema, unspecified emphysema type (HCC) Chronic pain of right knee- Primary Preoperative clearance Unspecified pre-operative examination Essential hypertension Unspecified essential hypertension Other emphysema (HCC) Other emphysema Pure hypercholesterolemia Annual physical exam- Primary Routine general medical examination at a health care facility Encounter for screening mammogram for malignant neoplasm of breast Lung nodules Other diseases of lung, not elsewhere classified Personal history of nicotine dependence Need for pneumococcal 20-valent conjugate vaccination Immunization counseling Acute deep vein thrombosis (DVT) of right lower extremity, unspecified vein (HCC) Pure hypercholesterolemia Class 1 obesity due to excess calories with serious comorbidity and body mass index (BMI) of 30.0 to 30.9 in adult Essential hypertension Unspecified essential hypertension Other emphysema (HCC) Other emphysema Other specified hypothyroidism Vitamin D deficiency Chronic pain of right knee [facility]* Diagnosis Chronic pain of right knee- Primary Preoperative clearance Unspecified pre-operative examination Essential hypertension Unspecified essential hypertension Other specified hypothyroidism Pure hypercholesterolemia Vitamin D deficiency Screening for diabetes mellitus Pulmonary emphysema, unspecified emphysema type (HCC) Chronic pain of right knee- Primary Preoperative clearance Unspecified pre-operative examination Essential hypertension Unspecified essential hypertension Other emphysema (HCC) Other emphysema Pure hypercholesterolemia Annual physical exam- Primary Routine general medical examination at a health care facility Encounter for screening mammogram for malignant neoplasm of breast Lung nodules Other diseases of lung, not elsewhere classified Personal history of nicotine dependence Need for pneumococcal 20-valent conjugate vaccination Immunization counseling Acute deep vein thrombosis (DVT) of right lower extremity, unspecified vein (HCC) Pure hypercholesterolemia Class 1 obesity due to excess calories with serious comorbidity and body mass index (BMI) of 30.0 to 30.9 in adult Essential hypertension Unspecified essential hypertension Other emphysema (HCC) Other emphysema Other specified hypothyroidism Vitamin D deficiency Chronic pain of right knee Acute deep vein thrombosis (DVT) of right lower extremity, unspecified vein (HCC) [facility]* Attachments The following attachments cannot be sent through Care Everywhere. * Pneumococcal Conjugate Vaccine (20-Valent), ADULT ([place]e) * Hepatitis B Vaccine (Recombinant (Adjuvanted)), ADULT ([place]) * Zoster Vaccine (Recombinant), ADULT ([place]) [facility]* Attachments The following attachments cannot be sent through Care Everywhere. * Pneumococcal Conjugate Vaccine (20-Valent), ADULT ([place]) * Hepatitis B Vaccine (Recombinant (Adjuvanted)), ADULT ([place]) * Zoster Vaccine (Recombinant), ADULT ([place]) [facility]* Attachments The following attachments cannot be sent through Care Everywhere. * Metformin, ADULT ([place]e) documented in this [facility]SumK[facility]Re[facility] for [facility] (narrative)No reason for referral information availableWBethesda North Hospital Work Phone: Discharge Instructions * Instructions* Home Tesfaye PA - 12/27/2017 Please take medication as prescribed Please follow up with your Physicians as instructed in this discharge paperwork Have sutures removed in approximately 5-7 days Thank you for choosing [facility] I appreciate your patience Please return to the emergency department if your symptoms worsen, or new symptoms develop as discussed * Attachments The following attachments cannot be sent through Care Everywhere. * Lacerations: Stitches ([place]eg[place]e) documented in this encounter Assessments Diagnosis Fall, initial encounter Rib contusion, left, initial encounter Contusion of left knee, initial encounter Forearm laceration, left, initial encounter Advance Directives No Advanced Directives Records FoundDocuments on File Type Date Recorded Patient Manager Case Expl anation Advance Directives and Living Will Power of Boat Outboard Engine Mechanic Latest Code Status on File Code Status Date Activated Date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 Fri08/26/22 at 0832, For 1 dose, Preprocedure, Using dry hands, place tablet on top of tongue and allow to disintegrate. Administration with water is not necessary. diphenhydrAMINE (BENADryl) injection 12.5 mg 12.5 mg, IntraVENous, Once PRN, itching, Starting on Fri08/26/22 at 1040, For 1 dose, Recovery (only) fentaNYL (Sublimaze) injection 25 mcg 25 mcg, IntraVENous, Every 5 min PRN, moderate pain (4-6), Starting on Fri08/26/22 at 1040, For 3 doses, Recovery (only), Phase I and Phase II- Initial therapy for moderate pain (4-6). Restricted to a 90 minute time frame starting when the patient can verbally state their pain score. If after 2 doses the pain score does not decrease by more than one point, then call the provider. If oral meds are utilized, do not return to initial therapy medications. fentaNYL (Sublimaze) injection 50 mcg 50 mcg, IntraVENous, Every 5 min PRN, severe pain (7-10), Starting on Fri08/26/22 at 1040, For 3 doses, Recovery (only), Phase I and Phase II- Initial therapy for severe pain (7-10). Restricted to a 90 minute time frame starting when the patient can verbally state their pain score. If after 2 doses the pain score does not decrease by more than one point, then call the provider. If oral meds are utilized, do not return to initial therapy medications. hydrALAZINE (Apresoline) injection 5 mg(Linked Group 1) 5 mg, IntraVENous, Every 15 min PRN, high blood pressure, for SBP greater than 160 mmHg for 2 consecutive measurements taken from different sites, Starting on Fri08/26/22 at 1040, For 2 doses, Recovery (only), PRN for SBP > 160 for 2 consecutive measurements, and if one of the following conditions is met: 1) If IV labetolol is ineffective. 2) If HR is under 60. 3) If patient has heart block, COPD or asthma. If both labetalol and hydralazine ineffective, notify anesthesia provider. labetalol (Normodyne,Trandate) injection 5 mg(Linked Group 1) 5 mg, IntraVENous, Every 10 min PRN, high blood pressure, for SBP greater than 160 mmHg for 2 consecutive measurements taken from different sites., Starting on Fri08/26/22 at 1040, For 2 doses, Recovery (only), PRN for SBP >160 for 2 consecutive measurements, if HR is 60 or greater. If beta michael is contraindicated (HR less than 60, heart block, COPD or asthma) use hydralazine IV order. LORazepam (Ativan) injection 0.5 mg 0.5 mg, IntraVENous, Once PRN, for anxiety or muscle spasm., Starting on Fri08/26/22 at 1040, For 1 dose, Recovery (only), For IV doses dilute dose with 1ml NS. meperidine (Demerol) injection 12.5 mg 12.5 mg, IntraVENous, Every 5 min PRN, shivering, Starting on Fri08/26/22 at 1040, For 4 doses, Recovery (only), May give every 5 minutes to max of 50mg. ondansetron (Zofran) injection 4 mg 4 mg, IntraVENous, Once PRN, nausea, Starting on Fri08/26/22 at 1040, For 1 dose, Recovery (only), Initial antiemetic therapy. oxyCODONE (Roxicodone) immediate release tablet 10 mg(Linked Group 2) 10 mg, Oral, PRN, severe pain (7-10), Starting on Fri08/26/22 at 1040, For 1 dose, Recovery (only), PHASE II oxyCODONE (Roxicodone) immediate release tablet 5 mg(Linked Group 2) 5 mg, Oral, PRN, moderate pain (4-6), Starting on Fri08/26/22 at 1040, For 1 dose, Recovery (only), PHASE II sodium chloride 0.9 % bolus 500 mL 500 mL, IntraVENous, at 1,000 mL/hr, Administer over 0.5 Hours, PRN, Anti-nausea, Starting on Fri08/26/22 at 1040, Recovery (only), Indications: Anti-nausea sodium chloride 0.9 % infusion 5-250 mL/hr, IntraVENous, PRN, if patient receiving piggyback infusions and maintenance fluids are not ordered OR KVO fluids to protect IV site / prevent frequent line interruptions/ long duration, Starting on Fri08/26/22 at 0832, Preprocedure, For piggyback infusion, administer at same rate as piggyback for a total of 25 mL. Enter 25 mL into dose field and piggyback rate into rate field of order. If piggyback is infusing at a rate less than 100 mL/hr, enter 25 mL into dose field and 100 mL/hr into rate field of order. For KVO fluids, enter rate of 20 mL/hr or less into rate field of order. sodium chloride 0.9 % infusion 5-250 mL/hr, IntraVENous, PRN, if patient receiving piggyback infusions and maintenance fluids are not ordered OR KVO fluids to protect IV site / prevent frequent line interruptions / long duration, Starting on Fri08/26/22 at 0832, Preprocedure, For piggyback infusion, administer at same rate as piggyback for a total of 25 mL. Enter 25 mL into dose field and piggyback rate into rate field of order. If piggyback is infusing at a rate less than 100 mL/hr, enter 25 mL into dose field and 100 mL/hr into rate field of order. For KVO fluids, enter rate of 20 mL/hr or less into rate field of order. sodium chloride 0.9 % infusion 5-250 mL/hr, IntraVENous, PRN, if patient receiving piggyback infusions and maintenance fluids are not ordered OR KVO fluids to protect IV site / prevent frequent line interruptions/ long duration, Starting on Fri08/26/22 at 1040, Recovery (only), For piggyback infusion, administer at same rate as piggyback for a total of 25 mL. Enter 25 mL into dose field and piggyback rate into rate field of order. If piggyback is infusing at a rate less than 100 mL/hr, enter 25 mL into dose field and 100 mL/hr into rate field of order. For KVO fluids, enter rate of 20 mL/hr or less into rate field of order. sodium chloride 0.9 % irrigation solution (CANCELED) As needed, Starting on Fri08/26/22 at 1008, Intraprocedure 1008 (Given - Provid er: Robbi Cook MD) sodium chloride 0.9% (NS) flush 10 mL 10 mL, IntraVENous, PRN, line care, Starting on Fri08/26/22 at 0832, Preprocedure, After every IV line use sodium chloride 0.9% (NS) flush 10 mL 10 mL, IntraVENous, PRN, line care, Starting on Fri08/26/22 at 1040, Recovery (only), After every IV line use sodium chloride 0.9% (NS) flush 5-40 mL 5-40 mL, IntraVENous, PRN, line care, After every IV line use, Starting on Fri08/26/22 at 0832, Preprocedure, For Line Patency: Peripheral IV = 5 mL; Midline or Central Line = 10 mL/lumen. If following IV push medication, administer flush at same rate as the IV push. Flush volume is determined by type of infusion therapy being given. For non-viscous solutions use: Peripheral IV = 5 mL Midline or Central Line = 10 mL/lumen For viscous solutions (i.e. blood components, parenteral nutrition, contrast media, or after obtaining blood sample) use: Peripheral IV = 10 mL Midline or Central Line = 20 mL/lumen Linked Groups Order Group 1: labetalol (Normodyne,Trandate) injection 5 mgJump to med 5 mg, IntraVENous, Every 10 min PRN, high blood pressure, for SBP greater than 160 mmHg for 2 consecutive measurements taken from different sites., Starting on Fri08/26/22 at 1040, For 2 doses, Recovery (only)
PRN for SBP >160 for 2 consecutive measurements, if HR is 60 or greater. If beta michael is contraindicated (HR less than 60, heart block, COPD or asthma) use hydralazine IV order.
Or hydrALAZINE (Apresoline) injection 5 mgJump to med 5 mg, IntraVENous, Every 15 min PRN, high blood pressure, for SBP greater than 160 mmHg for 2 consecutive measurements taken from different sites, Starting on Fri08/26/22 at 1040, For 2 doses, Recovery (only)
PRN for SBP > 160 for 2 consecutive measurements, and if one of the following conditions is met: 1) If IV labetolol is ineffective. 2) If HR is under 60. 3) If patient has heart block, COPD or asthma. If both labetalol and hydralazine ineffective, notify anesthesia provider.
Group 2: oxyCODONE (Roxicodone) immediate release tablet 5 mgJump to med 5 mg, Oral, PRN, moderate pain (4-6), Starting on Fri08/26/22 at 1040, For 1 dose, Recovery (only)
PHASE II
Or oxyCODONE (Roxicodone) immediate release tablet 10 mgJump to med 10 mg, Oral, PRN, severe pain (7-10), Starting on 08/26/22 at 1040, For 1 dose, Recovery (only)
PHASE II
FOR RECORDS PERTAINING TO PATIENTS WHO ARE OR HAVE BEEN ENROLLED IN A CHEMICAL DEPENDENCY/SUBSTANCEABUSE PROGRAM, SOME INFORMATION MAY BE OMITTED. This clinical summary was aggregated from multiple sources. Caution should be exercised in using it in the provision of clinical care. This summary normalizes information from multiple sources, and as a consequence, information in this document may materially change the coding, format and clinical context of patient data. In addition, data may be omitted in some cases. CLINICAL DECISIONS SHOULD BE BASED ON THE PRIMARY CLINICAL RECORDS. [facility]. provides no warranty or guarantee of the accuracy or completeness of information in this document.
== END | disposition home or self-care (01) ==
LOC: CT 17:01
PROVIDERS: PCP Internal Medicine; Referring Provider Nurse Practitioner Family; Visit Provider Nurse Practitioner Family
DX: Z12.31 Encounter for screening mammogram for malignant neoplasm of breast (principal); R91.1 Solitary pulmonary nodule
CPT/HCPCS: 77063; 77067